=== PATIENT | female | born 1955 | race Caucasian/White ===

== ENCOUNTER → 2017-05-20 | Outpatient (CLI) | payer BC ==
--- NOTE | 2017-05-29 08:44 | MM ---
Reason for exam: screening (asymptomatic). Last mammogram was performed 3 years and 6 months ago. Physical Findings: A clinical breast exam by your physician is recommended on an annual basis and results should be correlated with mammographic findings. MG Screening Mammo w CAD Bilateral CC and MLO view(s) were taken. Prior study comparison: November 11, 2013, mammogram, performed at [facility] December 17, 2011, mammogram, performed at [facility] There are scattered fibroglandular densities. No significant changes when compared with prior studies. ASSESSMENT: Negative, BI-RAD 1 RECOMMENDATION: Routine screening mammogram of both breasts in 1 year.
== END | disposition home or self-care (01) ==
LOC: RADMAMWWP 13:13
PROVIDERS: ATTEND Family Medicine
DX: Z12.31 Encounter for screening mammogram for malignant neoplasm of breast (principal)
CPT/HCPCS: 77067

== ENCOUNTER 2017-06-01 08:51 | Inpatient (IN) | payer BC ==
[2017-06-01] MEDS ORDERED: RX INFO: IV CONTRAST WAS GIVEN 1 EACH MISC MISCELLANE PRN (09:50)
[2017-06-01] MEDS ORDERED: LORazepam 2 MG/ML INJ IV STA (09:51)
[2017-06-01] MEDS ORDERED: METOCLOPRAMIDE 5 MG/ML 2 ML VIAL IVP STA (09:51)
--- NOTE | 2017-06-01 09:57 | ED ---
General Adult HPI - General Chief complaint: Syncope Stated complaint: Shaky, dizzy Time Seen by Provider: 06/01/17 08:58 Source: patient, family, EMS, RN notes reviewed Mode of arrival: EMS Limitations: no limitations - History of Present Illness Initial comments: Patient is a pleasant 61-year-old female presenting to the emergency Department with complaints of dizziness. Patient noticed symptoms when she awoke around 4 AM. Unclear exact onset. Patient denies any confusion or weakness. Patient feels floaty. Patient does admit to having some spinning type sensation with movement and upright position. No vomiting. No history of similar symptoms previously. Patient did have some dizziness with a TIA several years ago however that felt different. - Related Data Home Medications Medication Instructions Recorded Confirmed ALPRAZolam [Xanax] 0.25 mg PO Q8HR PRN 11/22/15 06/01/17 Aspirin 325 mg PO DAILY PRN 11/22/15 06/01/17 Cholecalciferol [Vitamin D3] 2,000 unit PO DAILY 11/22/15 06/01/17 Previous Rx's Medication Instructions Recorded Atenolol [Tenormin] 25 mg PO DAILY #30 tab 11/25/15 Allergies Allergy/AdvReac Type Severity Reaction Status Date / Time Sulfa (Sulfonamide Allergy Swelling Verified 06/01/17 09:23 Antibiotics) codeine AdvReac Unknown Verified 06/01/17 09:23 lisinopril AdvReac Unknown Verified 06/01/17 09:23 ramipril AdvReac Unknown Verified 06/01/17 09:23 steroids AdvReac Unknown Uncoded 06/01/17 09:23 Review of Systems ROS Statement: Those systems with pertinent positive or pertinent negative responses have been documented in the HPI. ROS Other: All systems not noted in ROS Statement are negative. Constitutional: Denies: fever Eyes: Denies: eye pain ENT: Denies: ear pain Respiratory: Denies: cough Cardiovascular: Denies: chest pain Endocrine: Denies: fatigue Gastrointestinal: Denies: abdominal pain Genitourinary: Denies: dysuria Musculoskeletal: Denies: back pain Skin: Denies: rash Neurological: Denies: headache, weakness, confusion, abnormal gait Past Medical History Past Medical History: Hypertension, Mitral Valve Prolapse (MVP) History of Any Multi-Drug Resistant Organisms: None Reported Past Surgical History: Cholecystectomy, Hysterectomy Past Psychological History: Anxiety Smoking Status: Former smoker Past Alcohol Use History: None Reported Past Drug Use History: None Reported General Exam Limitations: no limitations General appearance: alert, in no apparent distress Head exam: Present: atraumatic Eye exam: Present: normal appearance, PERRL, EOMI. Absent: nystagmus ENT exam: Present: normal oropharynx Neck exam: Present: normal inspection Respiratory exam: Present: normal lung sounds bilaterally Cardiovascular Exam: Present: regular rate, normal rhythm GI/Abdominal exam: Present: soft. Absent: tenderness Extremities exam: Present: normal inspection Back exam: Present: normal inspection Neurological exam: Present: alert, oriented X3, CN II-XII intact Expanded Neurological exam: Present: protecting the airway Patient oriented to: Present: person, place, time Speech: Present: fluid speech Cranial nerves: EOM's Intact: Normal, Facial Sensation: Normal Cerebellar function: Finger to Nose: Abnormal Left (Patient has difficulty touching the nose on the left however is able to on 2 attempts.) Sensory exam: Upper Extremity Light Touch: Normal, Lower Extremity Light Touch: Normal Motor strength exam: RUE: 5, LUE: 5, RLE: 5, LLE: 4 Eye Response: (4) open spontaneously Motor Response: (6) obeys commands Verbal Response: (5) oriented Psychiatric exam: Present: normal affect, normal mood Skin exam: Present: normal color Course Vital Signs 06/01/17 06/01/17 06/01/17 09:01 10:39 11:34 Temperature 97.8 F Pulse Rate 81 65 70 Respiratory 16 17 18 Rate Blood Pressure 216/98 168/77 170/81 O2 Sat by Pulse 98 98 Oximetry EKG Findings - EKG Comments: EKG Findings:: Normal sinus rhythm 75. KS 150. QRS 86. QT 39 8. QTC 444. Normal axis. Normal QRS. No acute ST change. Medical Decision Making - Medical Decision Making Patient reevaluated and somewhat improved. Patient and family updated on results and plan. Case was crusted detail with Dr. Rosario, who will admit for Dr. hope. Neurology will be consult. MRA will be ordered. Patient was not considered a candidate for TPA secondary to unknown onset. In addition patient had minimal symptoms and questionable aneurysm on computed tomography scan. - Lab Data Result diagrams: 06/01/17 10:10 06/01/17 10:10 Lab Results 06/01/17 06/01/17 06/01/17 Range/Units 10:10 10:10 10:10 WBC 6.9 (3.8-10.6) k/uL RBC 5.15 (3.80-5.40) m/uL Hgb 13.0 (11.4-16.0) gm/dL Hct 40.4 (34.0-46.0) % MCV 78.4 L (80.0-100.0) fL MCH 25.3 (25.0-35.0) pg MCHC 32.3 (31.0-37.0) g/dL RDW 13.1 (11.5-15.5) % Plt Count 232 (150-450) k/uL Neutrophils % 79 % Lymphocytes % 15 % Monocytes % 3 % Eosinophils % 1 % Basophils % 1 % Neutrophils # 5.5 (1.3-7.7) k/uL Lymphocytes # 1.1 (1.0-4.8) k/uL Monocytes # 0.2 (0-1.0) k/uL Eosinophils # 0.1 (0-0.7) k/uL Basophils # 0.0 (0-0.2) k/uL PT (9.0-12.0) sec INR (<1.2) APTT (22.0-30.0) sec Sodium 140 (137-145) mmol/L Potassium 4.3 (3.5-5.1) mmol/L Chloride 103 (98-107) mmol/L Carbon Dioxide 25 (22-30) mmol/L Anion Gap 12 mmol/L BUN 10 (7-17) mg/dL Creatinine 0.50 L (0.52-1.04) mg/dL Est GFR (MDRD) Af Amer >60 (>60 ml/min/1.73 sqM) Est GFR (MDRD) Non-Af >60 (>60 ml/min/1.73 sqM) Glucose 108 H (74-99) mg/dL Calcium 9.5 (8.4-10.2) mg/dL Total Bilirubin 0.7 (0.2-1.3) mg/dL AST 17 (14-36) U/L ALT 26 (9-52) U/L Alkaline Phosphatase 73 (38-126) U/L Total Creatine Kinase 50 (30-135) U/L CK-MB (CK-2) 1.0 (0.0-2.4) ng/mL CK-MB (CK-2) Rel Index 2.0 Troponin I <0.012 (0.000-0.034) ng/mL Total Protein 7.3 (6.3-8.2) g/dL Albumin 4.4 (3.5-5.0) g/dL 06/01/17 Range/Units 10:10 WBC (3.8-10.6) k/uL RBC (3.80-5.40) m/uL Hgb (11.4-16.0) gm/dL Hct (34.0-46.0) % MCV (80.0-100.0) fL MCH (25.0-35.0) pg MCHC (31.0-37.0) g/dL RDW (11.5-15.5) % Plt Count (150-450) k/uL Neutrophils % % Lymphocytes % % Monocytes % % Eosinophils % % Basophils % % Neutrophils # (1.3-7.7) k/uL Lymphocytes # (1.0-4.8) k/uL Monocytes # (0-1.0) k/uL Eosinophils # (0-0.7) k/uL Basophils # (0-0.2) k/uL PT 10.3 (9.0-12.0) sec INR 1.1 (<1.2) APTT 21.0 L (22.0-30.0) sec Sodium (137-145) mmol/L Potassium (3.5-5.1) mmol/L Chloride (98-107) mmol/L Carbon Dioxide (22-30) mmol/L Anion Gap mmol/L BUN (7-17) mg/dL Creatinine (0.52-1.04) mg/dL Est GFR (MDRD) Af Amer (>60 ml/min/1.73 sqM) Est GFR (MDRD) Non-Af (>60 ml/min/1.73 sqM) Glucose (74-99) mg/dL Calcium (8.4-10.2) mg/dL Total Bilirubin (0.2-1.3) mg/dL AST (14-36) U/L ALT (9-52) U/L Alkaline Phosphatase (38-126) U/L Total Creatine Kinase (30-135) U/L CK-MB (CK-2) (0.0-2.4) ng/mL CK-MB (CK-2) Rel Index Troponin I (0.000-0.034) ng/mL Total Protein (6.3-8.2) g/dL Albumin (3.5-5.0) g/dL - Radiology Data Radiology results: report reviewed (Computed tomography scan of the brain shows no acute process. CT [place] of the head and neck has a questionable 2 mm distal right internal carotid aneurysm recommends MRA. Plaquing carotid bifurcation without significant flow-limiting stenosis.), image reviewed (Two- view chest x-ray shows no acute process.) Disposition Clinical Impression: CVA (cerebral vascular accident) Disposition: ADMITTED IP TO THIS [facility] Referrals: Chastity Cordova MD [Primary Care Provider] - 1-2 days Decision Time: 12:25
[2017-06-01 10:17] LABS: Basophils % (A) 1 %; Eosinophils # (A) 0.1 k/uL (0-0.7); Eosinophils % (A) 1 %; HCT 40.4 % (34.0-46.0); Lymphocytes # (A) 1.1 k/uL (1.0-4.8); Lymphocytes % (A) 15 %; MCH 25.3 pg (25.0-35.0); MCHC 32.3 g/dL (31.0-37.0); MCV 78.4 fL (80.0-100.0); Mean Platelet Volume 7.3; Monocytes # (A) 0.2 k/uL (0-1.0); Monocytes % (A) 3 %; Neutrophils # (A) 5.5 k/uL (1.3-7.7); Neutrophils % (A) 79 %; Platelet Count 232 k/uL (150-450); RBC 5.15 m/uL (3.80-5.40); RDW 13.1 % (11.5-15.5); WBC 6.9 k/uL (3.8-10.6)
[2017-06-01 10:29] LABS: ALT 26 U/L (9-52); AST 17 U/L (14-36); Albumin 4.4 g/dL (3.5-5.0); Alkaline Phosphatase 73 U/L (38-126); Anion Gap 12 mmol/L; Blood Urea Nitrogen 10 mg/dL (7-17); Calcium 9.5 mg/dL (8.4-10.2); Carbon Dioxide 25 mmol/L (22-30); Chloride 103 mmol/L (98-107); Glucose 108 mg/dL (74-99); Potassium 4.3 mmol/L (3.5-5.1); Sodium 140 mmol/L (137-145); Total Bilirubin 0.7 mg/dL (0.2-1.3); Total Protein 7.3 g/dL (6.3-8.2)
--- NOTE | 2017-06-01 10:30 | XR ---
EXAMINATION TYPE: XR chest 2V DATE OF EXAM: 06/01/2017 COMPARISON: 11/23/2015 HISTORY: Dizziness TECHNIQUE: Frontal and lateral views of the chest are obtained. FINDINGS: Lower lung volumes than on the prior exam crowd the pulmonary vasculature. There is no foc al air space opacity, pleural effusion, or pneumothorax seen. The cardiac silhouette size is within normal limits. The osseous structures are intact. Mild multilevel degenerative changes of the thora cic spine are noted. IMPRESSION: No acute cardiopulmonary process.
--- NOTE | 2017-06-01 10:32 | CT ---
EXAMINATION TYPE: CT brain wo con DATE OF EXAM: 06/01/2017 COMPARISON: 11/22/2015 INDICATION: Dizzy, RICH, Lt sided weakness DLP: 1025.5 mGycm, Automated exposure control for dose reduction was used. CONTRAST: None CT of the brain is performed utilizing 3 mm thick sections through the posterior fossa and 3 mm thick sections through the remaining calvarium. Study is performed within 24 hours of arrival to the hosp ital. No abnormal hyperdensity is present to suggest an acute intracranial hemorrhage. No mass lesion is evident. No acute infarcts are evident. Ventricles and sulci are appropriate for the patient age. There is a small retention cyst within the left maxillary sinus. Paranasal sinuses and mastoid air ce lls are otherwise clear. IMPRESSIONS: 1. No acute intracranial process.
[2017-06-01 10:38] LABS: INR 1.1 (<1.2); Prothrombin Time 10.3 sec (9.0-12.0)
[2017-06-01 10:39] LABS: Creatine Kinase 50 U/L (30-135)
[2017-06-01 10:52] LABS: Troponin I <0.012 ng/mL (0.000-0.034)
--- NOTE | 2017-06-01 11:03 | CT ---
EXAMINATION TYPE: CT angio head neck DATE OF EXAM: 06/01/2017 HISTORY: Dizzy, RICH, Lt sided weakness COMPARISON: NONE CT DLP: 320.3 mGycm. Automated Exposure Control for Dose Reduction was Utilized. TECHNIQUE: CTA scan of the neck is performed with IV Contrast, patient injected with 65 mL of Omnipa que 350, axial images are obtained, coronal and sagittal reformatted images are reviewed. Three-D rec onstructed images are created on an independent workstation and reviewed. FINDINGS: Carotid/Vascular Structures: Common carotid arteries bifurcate into internal and external carotid art eries.. Vascular calcification is present at the bifurcations. Significant flow-limiting stenosis is not identified. Vertebral arteries are codominant. [place]: Internal carotid arteries bifurcate into A1 and M1 segments. The A2 segments appear normal. Middle cerebral artery branches are unremarkable. Posterior cerebral vasculature is normal. Posterior communicating arteries are patent. At the lateral distal right carotid siphon there is a tiny 2 mm density which may be a very small ane urysm. Consider follow-up MRA COW for confirmation. Other: There is a common origin of the left and right common carotid arteries from the innominate. IMPRESSION: 1. A 2 mm lateral distal right internal carotid siphon aneurysm is not excluded. MRA [place] is recommended for confirmation. 2. Atheromatous plaquing carotid bifurcations without significant flow-limiting stenosis. 3. Common origin of the left and right common carotid arteries from the innominate artery.
[2017-06-01] MEDS ORDERED: LORazepam 2 MG/ML INJ IV PRN (12:28)
[2017-06-01] MEDS: SODIUM CHLORIDE 0.9% 1,000 ML IV SCH (14:32)
--- NOTE | 2017-06-01 14:33 | P.HPIM ---
History of Present Illness H&P Date: 06/01/17 Chief Complaint: Dizziness This is a 61-year-old female, patient of Dr. Cordova. She has a known past medical history of generalized anxiety disorder, TIA and hypertension. Patient reports that she woke up around 4:00 this morning to go use the restroom when she sat up she had severe dizziness. She had difficulty walking to the bathroom she had to hold onto different pieces of furniture. She reports that she has been, leaning more towards the left side. She reports that this does feel similar to a couple years ago when she did have a TIA. She also reports feeling that there is pressure on the top of her head. She was recently treated for an ear infection. She took 5 days of Augmentin for a left ear infection. Patient denies any pain or ear she denies any fevers or chills or sweats. Denies any vomiting. She does experience occasional nausea with the dizziness. Denies any bowel movement changes or urinary symptoms. She denies any cough or cold-like symptoms her sinus infection symptoms. Denies any ear pain. She did have one episode of ringing in the left ear during the ambulance ride. Patient reports yesterday she had been doing well with no problems. She presented with elevated blood pressure of 216/98 she does report taking her atenolol earlier this morning. She denies any chest pain. But does report feeling like something was stuck in her throat. Troponin was negative. EKG showing normal sinus rhythm. Chest x-rays negative. Computed tomography scan of the brain showed no acute changes CTA of the head and neck showed a 2 mm lateral distal right internal carotid siphon aneurysm is not excluded. MRA [place] is recommended. Arthritis plaquing carotid bifurcations without significant flow limiting stenosis. Neurology has been consulted. Patient is also noted some left leg weakness. During her hospitalization in November 2015 she was diagnosed with TIA there were also concerns about possible vestibular neuronitis. Patient reports laying flat on her back makes symptoms worse. Patient did take an aspirin and Xanax with no improvement in symptoms. Review of Systems Please refer to HPI otherwise unremarkable Past Medical History Past Medical History: Hypertension, Mitral Valve Prolapse (MVP) History of Any Multi-Drug Resistant Organisms: None Reported Past Surgical History: Cholecystectomy, Hysterectomy Past Psychological History: Anxiety Smoking Status: Former smoker Past Alcohol Use History: None Reported Past Drug Use History: None Reported Medications and Allergies Home Medications Medication Instructions Recorded Confirmed Type ALPRAZolam [Xanax] 0.25 mg PO Q8HR PRN 11/22/15 06/01/17 History Aspirin 325 mg PO DAILY PRN 11/22/15 06/01/17 History Cholecalciferol [Vitamin D3] 2,000 unit PO DAILY 11/22/15 06/01/17 History Atenolol [Tenormin] 25 mg PO DAILY #30 tab 11/25/15 06/01/17 Rx Allergies Allergy/AdvReac Type Severity Reaction Status Date / Time Sulfa (Sulfonamide Allergy Swelling Verified 06/01/17 09:23 Antibiotics) codeine AdvReac Unknown Verified 06/01/17 09:23 lisinopril AdvReac Unknown Verified 06/01/17 09:23 omeprazole [From Prilosec] AdvReac Rash/Hives Verified 06/01/17 14:15 ramipril AdvReac Unknown Verified 06/01/17 09:23 steroids AdvReac Unknown Uncoded 06/01/17 09:23 Physical Exam Vitals: Vital Signs Temp Pulse Resp BP Pulse Ox 06/01/17 11:34 70 18 170/81 06/01/17 10:39 65 17 168/77 98 06/01/17 09:01 97.8 F 81 16 216/98 98 Intake and Output 05/31/17 06/01/17 06/01/17 22:59 06:59 14:59 Other: Weight 90.718 kg Patient Weight 06/02/17 06:59 Weight 90.718 kg Head normocephalic Neck supple Lungs clear to auscultation bilaterally no wheezing or crackles Heart regular rate and rhythm S1-S2, no rub or gallop Abdomen is soft nontender nondistended positive bowel sounds no hepatosplenomegaly Extremities no edema Neuro alert and orientated to 3. No facial droop or slurred speech. Hand accordion repairer equal bilaterally. Lower extremity strength diminished on the left lateral 3 out of 5. No evidence of any sensation loss. Results CBC & Chem 7: 06/01/17 10:10 06/01/17 10:10 Labs: Abnormal Lab Results - Last 24 Hours (Table) 06/01/17 06/01/17 06/01/17 Range/Units 10:10 10:10 10:10 MCV 78.4 L (80.0-100.0) fL APTT 21.0 L (22.0-30.0) sec Creatinine 0.50 L (0.52-1.04) mg/dL Glucose 108 H (74-99) mg/dL Assessment and Plan Assessment: 1. Severe dizziness with left leg weakness: Concern about possible CVA. Initial computed tomography scan of the brain shows no acute changes. CT of the head and neck did reveal a 2 mm lateral distal right carotid siphon aneurysm not to be excluded. MRA and MRI of the brain have been ordered. Neurology has been consulted. Continue telemetry monitoring. EKG had shown normal sinus rhythm. Echo pending . lipid panel checked. Aspirin currently on hold until MRA done or evaluated by neurology 2. Accelerated hypertension: Continue to monitor blood pressures. 3. Generalized anxiety disorder: We'll resume patient's xanax. She can continue with the Ativan as needed for her claustrophobia 4. Previous history of TIA that had affected the left side 5. Recent left ear infection. Completed treatment with Augmentin about 1 week ago Time with Patient: Greater than 30 (Greater than 50% of the total time spent in counseling and coordination of care.I performed an examination of the patient and discussed their management with the physician Con[facility] Former. I have reviewed the Physician Conformal Pad Former's notes and agree with the documented findings and plan of care)
[2017-06-01] MEDS: ALPRAZolam 0.25 MG TAB PO PRN (16:26)
--- NOTE | 2017-06-01 16:34 | P.CNNES ---
History of Present Illness Consult date: 06/01/17 Reason for Consult: Patient with dizziness and left sided weakness. History of Present Illness: This patient is a 61-year-old right-handed white female who apparently early this morning was awakened at about 4 AM with symptoms of dizziness. Patient states she did not have true vertigo but did feel very much as if she was off balance. She felt she could not stand straight up. She apparently did try to get up out of bed and felt very unsteady. She was leaning to her left side. She decided to lay back down in bed and waited for another hour to to see if her symptoms would improve. Patient has a history of having an episode of TIA and dizziness about 2 years ago but this feeling today was quite different. The patient also mentions that she was treated for recent ear infection. She was taking Augmentin for left ear infection for about 5 days. Once again when questioned if she had true vertigo and spinning sensation she states it was more of a disequilibrium feeling this morning. Apparently yesterday she was feeling fine. She decided to awaken her who noticed that she was having some difficulty walking and leaning to her left side. She was able to make it to her primary care physician's office Dr. Cordova who advised her to go to the emergency room. Patient was brought into the ER where she was evaluated by Dr. Yoo. Apparently when she was initially seen in the emergency room her blood pressure was elevated at 216/98. She was given some antihypertensive medications and her blood pressure did seem to respond somewhat in the ER. She was evaluated and was not considered a candidate for TPA secondary to unknown onset of her symptoms. In addition she had minimal symptoms and her CTA angiogram revealed questionable aneurysm. Patient was sent for a computed tomography scan of the brain. A CAT scan of the brain revealed no acute intracranial process. She underwent CTA angiogram of the head and neck which revealed a 2 mm lateral distal right internal carotid artery siphon aneurysm was not excluded. MRA ambler of [place] was recommended. There was bathroom at this plaquing of the carotid bifurcations without significant flow limiting stenosis. A MRI/MRA of the brain has been ordered. Patient states she is no previous history of severe headaches. There is no strong family history of cerebral aneurysms. She is being evaluated by cardiology for hypertensive urgency. As noted her blood pressure still remains elevated. The patient did notice at home early this morning some degree of left-sided weakness. She states when she stood up and walked this morning at about 4 AM she felt she was leaning to her left side. She did not experience any speech or language impairment. Visual changes. The patient's symptoms in the ER did seem to improve. She is now being admitted to hospital for a complete stroke evaluation. As mentioned she is to undergo MRI/MRA of the brain for further evaluation. We're waiting further recommendations from cardiology regarding uncontrolled hypertension. The patient states she still feels some left-sided symptoms of weakness. Her neurological examination in the ER this afternoon does reveal slight left hemiparesis. We have suggested the patient to be completely evaluated for possibility of brainstem ischemia versus stroke. We will need to await the MRI of the brain to be completed for further assessment. As noted the possibility of a aneurysm will be further evaluated with MRA ambler of [place]. The patient is now admitted and neurology has been consulted for further evaluation and recommendations. Review of Systems Constitutional: Denies chills, Denies fever Eyes: denies blurred vision, denies pain Ears, nose, mouth and throat: Denies headache, Denies sore throat Cardiovascular: Reports high blood pressure, Reports lightheadedness, Denies chest pain, Denies shortness of breath Respiratory: Denies cough Gastrointestinal: Denies abdominal pain, Denies diarrhea, Denies nausea, Denies vomiting Genitourinary: Denies dysuria, Denies hematuria Musculoskeletal: Denies myalgias Integumentary: Denies pruritus, Denies rash Neurological: Reports gait dysfunction, Reports headaches, Reports motor disturbance, Denies numbness, Denies weakness Psychiatric: Denies anxiety, Denies depression Endocrine: Denies fatigue, Denies weight change Past Medical History Past Medical History: Hypertension, Mitral Valve Prolapse (MVP) Additional Past Medical History / Comment(s): TIA possible middle ear issue 2015-vertigo, pt states recently tx for ear infection. History of Any Multi-Drug Resistant Organisms: None Reported Past Surgical History: Cholecystectomy, Hysterectomy Additional Past Surgical History / Comment(s): colonoscopy Past Anesthesia/Blood Transfusion Reactions: No Reported Reaction Smoking Status: Former smoker - Past Family History Father Family Medical History: Coronary Artery Disease (CAD), Diabetes Mellitus, Myocardial Infarction ([place]) Additional Family Medical History / Comment(s): Father had a pacemaker. He at the age of 76yrs from a [place]. Mother Family Medical History: GERD/Reflux, Hypertension Medications and Allergies Home Medications Medication Instructions Recorded Confirmed Type ALPRAZolam [Xanax] 0.25 mg PO Q8HR PRN 11/22/15 06/01/17 History Aspirin 325 mg PO DAILY PRN 11/22/15 06/01/17 History Cholecalciferol [Vitamin D3] 2,000 unit PO DAILY 11/22/15 06/01/17 History Atenolol [Tenormin] 25 mg PO DAILY #30 tab 11/25/15 06/01/17 Rx Allergies Allergy/AdvReac Type Severity Reaction Status Date / Time Sulfa (Sulfonamide Allergy Swelling Verified 06/01/17 09:23 Antibiotics) codeine AdvReac Unknown Verified 06/01/17 09:23 lisinopril AdvReac Unknown Verified 06/01/17 09:23 omeprazole [From Prilosec] AdvReac Rash/Hives Verified 06/01/17 14:15 ramipril AdvReac Unknown Verified 06/01/17 09:23 steroids AdvReac Unknown Uncoded 06/01/17 09:23 Physical Examination - Vital Signs Vital Signs: Vital Signs Temp Pulse Resp BP Pulse Ox 06/01/17 16:13 72 18 196/89 97 06/01/17 14:30 98.2 F 70 18 188/90 95 06/01/17 11:34 70 18 170/81 06/01/17 10:39 65 17 168/77 98 06/01/17 09:01 97.8 F 81 16 216/98 98 Intake and Output 06/01/17 06/01/17 06/01/17 06:59 14:59 22:59 Other: Weight 90.718 kg Patient Weight 06/02/17 06:59 Weight 90.718 kg - Constitutional General appearance: average body habitus, cooperative - EENT EENT: PERRL, mucous membranes moist - Respiratory Respiratory: lungs clear, normal breath sounds - Cardiovascular Cardiovascular: regular rate, normal S1, normal S2 Extremities: no peripheral edema bilaterally - Gastrointestinal Gastrointestinal: normoactive bowel sounds - Integumentary Integumentary: normal - Neurologic Cranial nerve examination: PERRL, EOMI, V1/V2/V3 grossly intact, face symmetric , tongue midline, intact gag reflex, intact corneal reflex, normal palatal elevation Speech examination: intact Sensorimotor examination: intact Motor examination - right side: 5/5: biceps, triceps, wrist flexion, wrist extension, defense attorney, hip flexors, knee extensors, dorsiflexion, toe extension (EHL) , plantarflexion Motor examination - left side: 4/5: biceps, triceps, wrist flexion, wrist extension, defense attorney, hip flexors, knee extensors, dorsiflexion, toe extension (EHL) , plantarflexion Detailed sensory examination: intact Reflex and gait examination: intact Reflexes: 1+: ankle, bicep, knee, tricep - Musculoskeletal Musculoskeletal: no pain - Psychiatric Psychiatric: mood/affect appropriate, cooperative Results - Laboratory Findings CBC and BMP: 06/01/17 10:10 06/01/17 10:10 Abnormal Lab Findings: Abnormal Labs 06/01/17 06/01/17 06/01/17 10:10 10:10 10:10 MCV 78.4 L APTT 21.0 L Creatinine 0.50 L Glucose 108 H Assessment and Plan (1) Transient brainstem ischemia Current Visit: Yes Status: Acute Code(s): G45.9 - TRANSIENT CEREBRAL ISCHEMIC ATTACK, UNSPECIFIED SNOMED Code(s): 311063613 (2) Acute right MCA stroke Current Visit: Yes Status: Acute Code(s): I63.511 - CEREB INFRC D/T UNSP OCCLS OR STENOS OF RIGHT MID CEREB ART SNOMED Code(s): 568024733 (3) Hypertensive urgency Current Visit: Yes Status: Acute Code(s): I16.0 - HYPERTENSIVE URGENCY SNOMED Code(s): 880894140 (4) Vestibular neuronitis Current Visit: No Status: Acute Code(s): H81.20 - VESTIBULAR NEURONITIS, UNSPECIFIED EAR SNOMED Code(s): 587851246 Plan: This patient is a 61-year-old right-handed white female who is being evaluated for episode of acute disequilibrium and left-sided weakness that began at 4 AM this morning. She awoke with symptoms at home and had difficulty ambulating. She was seen by her primary care physician and was advised to go to the emergency room. She was seen in the ER at [facility] by Dr. Yoo. She underwent a computed tomography scan of the brain today which revealed no acute intracranial process. CTA angiogram of the head and neck revealed a 2 mm lateral distal right internal carotid siphon aneurysm was not excluded. Patient on neurological examination continues to demonstrate left- sided hemiparesis. There is mild degree of dysmetria on left finger-nose testing as well. These findings suggest possibility of brainstem ischemia. We are recommending that she undergo a MRI of the brain and MRA ambler of [place] for further evaluation for acute stroke. We're waiting cardiology consultation for evaluation of hypertensive urgency. We will await their conditions in terms of blood pressure management. The patient will be admitted for a complete stroke evaluation. Her overall prognosis at this time remains guarded. Time with Patient: Greater than 30
[2017-06-02] MEDS: ALPRAZolam 0.25 MG TAB PO PRN ×3 (00:18→22:15)
[2017-06-02] MEDS: SODIUM CHLORIDE 0.9% 1,000 ML IV SCH ×2 (00:43→08:36)
[2017-06-02 06:27] LABS: Basophils % (A) 1 %; Eosinophils # (A) 0.2 k/uL (0-0.7); Eosinophils % (A) 3 %; HCT 37.6 % (34.0-46.0); HGB 11.9 gm/dL (11.4-16.0); Lymphocytes # (A) 1.5 k/uL (1.0-4.8); Lymphocytes % (A) 27 %; MCH 25.5 pg (25.0-35.0); MCHC 31.7 g/dL (31.0-37.0); MCV 80.4 fL (80.0-100.0); Mean Platelet Volume 7.2; Monocytes # (A) 0.3 k/uL (0-1.0); Monocytes % (A) 5 %; Neutrophils # (A) 3.4 k/uL (1.3-7.7); Neutrophils % (A) 62 %; Platelet Count 207 k/uL (150-450); RBC 4.68 m/uL (3.80-5.40); RDW 13.6 % (11.5-15.5); WBC 5.5 k/uL (3.8-10.6)
[2017-06-02 06:43] LABS: ALT 24 U/L (9-52); AST 12 U/L (14-36); Albumin 3.8 g/dL (3.5-5.0); Alkaline Phosphatase 62 U/L (38-126); Anion Gap 11 mmol/L; Blood Urea Nitrogen 9 mg/dL (7-17); Carbon Dioxide 26 mmol/L (22-30); Chloride 106 mmol/L (98-107); Cholesterol 187 mg/dL (<200); Glucose 102 mg/dL (74-99); HDL Cholesterol 38 mg/dL (40-60); LDL Cholesterol,Calculated 126 mg/dL (0-99); Sodium 143 mmol/L (137-145); Total Bilirubin 0.7 mg/dL (0.2-1.3); Total Protein 6.3 g/dL (6.3-8.2); Triglycerides 113 mg/dL (<150)
[2017-06-02] MEDS: CHOLECALCIFEROL 1,000 UNIT TAB PO SCH (08:37)
[2017-06-02] MEDS: ATENOLOL 25 MG TAB PO SCH (08:38)
--- NOTE | 2017-06-02 10:12 | P.CRDCN ---
History of Present Illness Consult date: 06/02/17 Requesting physician: Rylee Rosario Consult reason: hypertension Chief complaint: Lightheadedness, headache History of present illness: This is a pleasant 61-year-old female with history of hypertension, prior TIA in November 2015, strong family history of premature coronary artery disease, generalized anxiety disorder. Patient presents to the hospital with symptoms of feeling woozy and unsteady. She states she did not have symptoms of dizziness like vertigo, she states it was more that she felt she was walking in a cloud, she felt foggy, she states she also had a headache on the top of her head. Patient felt unsteady in walking and felt as though she was mildly leaning to the left side. She took her blood pressure medications in the morning along with a Xanax, then went to her primary doctor's office explaining the symptoms, she was recommended to come to the emergency room for further evaluation. Patient has been recently treated with Augmentin as an outpatient for an ear infection. According to the patient, she had been diagnosed with a TIA in November 2015, at that time she states that she had significant dizziness and vertigo. Her blood pressure back then was in the 200 systolic range. Blood pressure on arrival here to 16/98, heart rate in the 80s, 98% on room air. She is afebrile. EKG on arrival here shows a normal sinus rhythm with no acute changes. CT angiogram was performed which revealed a 2 mm lateral distal right internal carotid aneurysm. Atheromatous plaque carotid bifurcations without significant flow limiting stenosis. CAT scan of the brain did not reveal any acute intracranial process. Chest x-ray did not reveal any acute cardiopulmonary process. CBC was normal. Sodium 143, potassium 4.0, BUN 9, creatinine 0.5. Troponin 0.012. Cholesterol 187, LDL 126, HDL 38, triglycerides 113. At the time of my examination this morning, patient states she does feel better, she was ambulated this morning with physical therapy who noted that she still has mild leaning to the left-side. The patient was seen in consultation by neurology who are recommending she undergo an MRI of the brain and MRA of the pauma of [place]ong for further evaluation of acute stroke. Blood pressure this morning 182/88, heart rate in the 80s. 98% on room air. The patient is currently on Tenormin 25 mg daily at home for blood pressure. This has been resumed here, and patient was also initiated on Norvasc 2.5 mg daily. Past Medical History Past Medical History: Hypertension, Mitral Valve Prolapse (MVP) Additional Past Medical History / Comment(s): TIA possible middle ear issue 2015-vertigo, pt states recently tx for ear infection. History of Any Multi-Drug Resistant Organisms: None Reported Past Surgical History: Cholecystectomy, Hysterectomy Additional Past Surgical History / Comment(s): colonoscopy Past Anesthesia/Blood Transfusion Reactions: No Reported Reaction Smoking Status: Former smoker - Past Family History Father Family Medical History: Coronary Artery Disease (CAD), Diabetes Mellitus, Myocardial Infarction ([place]) Additional Family Medical History / Comment(s): Father had a pacemaker. He at the age of 76yrs from a [place]. Mother Family Medical History: GERD/Reflux, Hypertension Medications and Allergies Home Medications Medication Instructions Recorded Confirmed Type ALPRAZolam [Xanax] 0.25 mg PO Q8HR PRN 11/22/15 06/01/17 History Aspirin 325 mg PO DAILY PRN 11/22/15 06/01/17 History Cholecalciferol [Vitamin D3] 2,000 unit PO DAILY 11/22/15 06/01/17 History Atenolol [Tenormin] 25 mg PO DAILY #30 tab 11/25/15 06/01/17 Rx Allergies Allergy/AdvReac Type Severity Reaction Status Date / Time Sulfa (Sulfonamide Allergy Swelling Verified 06/01/17 09:23 Antibiotics) codeine AdvReac Unknown Verified 06/01/17 09:23 lisinopril AdvReac Unknown Verified 06/01/17 09:23 omeprazole [From Prilosec] AdvReac Rash/Hives Verified 06/01/17 14:15 ramipril AdvReac Unknown Verified 06/01/17 09:23 steroids AdvReac Unknown Uncoded 06/01/17 09:23 Physical Exam Vitals: Vital Signs Temp Pulse Pulse Resp BP BP Pulse Ox 06/02/17 08:00 96.9 F L 83 18 183/89 98 06/02/17 03:59 64 18 06/02/17 03:58 97.3 F L 64 18 151/94 99 06/02/17 00:00 96.8 F L 68 18 134/72 98 06/01/17 20:00 96.9 F L 68 18 151/82 94 L 06/01/17 17:25 96.9 F L 75 18 164/101 98 06/01/17 16:13 97.0 F L 72 18 196/89 97 06/01/17 14:30 98.2 F 70 18 188/90 95 06/01/17 11:34 70 18 170/81 06/01/17 10:39 65 17 168/77 98 Intake and Output 06/01/17 06/02/17 06/02/17 22:59 06:59 14:59 Intake Total 240 800 240 Balance 240 800 240 Intake: IV 800 Sodium Chloride 0.9% 1, 800 000 ml @ 100 mls/hr IV . Q10H [facility] Rx#:[id number] Oral 240 240 Other: Voiding Method Toilet Toilet Toilet # Voids 1 1 Weight 93.4 kg PHYSICAL EXAMINATION: HEENT: Head is atraumatic, normocephalic. Pupils equal, round. Neck is supple. There is no elevated jugular venous pressure. HEART EXAMINATION: Heart S1, S2 normal. No murmur or gallop heard. CHEST EXAMINATION: Lungs are clear to auscultation and precussion. No chest wall tenderness is noted on palpation or with deep breathing. ABDOMEN: Soft, nontender. Bowel sounds are heard. No organomegaly noted. EXTREMITIES: 2+ peripheral pulses with no evidence of peripheral edema and no calf tenderness noted. NEUROLOGIC patient is awake, alert and oriented -3. . Results 06/02/17 05:36 06/02/17 05:36 Cardiac Enzymes 06/01/17 06/01/17 06/02/17 Range/Units 10:10 10:10 05:36 AST 17 12 L (14-36) U/L CK-MB (CK-2) 1.0 (0.0-2.4) ng/mL Troponin I <0.012 (0.000-0.034) ng/mL Coagulation 06/01/17 Range/Units 10:10 PT 10.3 (9.0-12.0) sec APTT 21.0 L (22.0-30.0) sec Lipids 06/02/17 Range/Units 05:36 Triglycerides 113 (<150) mg/dL Cholesterol 187 (<200) mg/dL HDL Cholesterol 38 L (40-60) mg/dL CBC 06/01/17 06/02/17 Range/Units 10:10 05:36 WBC 6.9 5.5 (3.8-10.6) k/uL RBC 5.15 4.68 (3.80-5.40) m/uL Hgb 13.0 11.9 (11.4-16.0) gm/dL Hct 40.4 37.6 (34.0-46.0) % Plt Count 232 207 (150-450) k/uL Comprehensive Metabolic Panel 06/01/17 06/02/17 Range/Units 10:10 05:36 Sodium 140 143 (137-145) mmol/L Potassium 4.3 4.0 (3.5-5.1) mmol/L Chloride 103 106 (98-107) mmol/L Carbon Dioxide 25 26 (22-30) mmol/L BUN 10 9 (7-17) mg/dL Creatinine 0.50 L 0.50 L (0.52-1.04) mg/dL Glucose 108 H 102 H (74-99) mg/dL Calcium 9.5 9.0 (8.4-10.2) mg/dL AST 17 12 L (14-36) U/L ALT 26 24 (9-52) U/L Alkaline Phosphatase 73 62 (38-126) U/L Total Protein 7.3 6.3 (6.3-8.2) g/dL Albumin 4.4 3.8 (3.5-5.0) g/dL Current Medications Generic Name Dose Route Start Last Admin Trade Name Freq PRN Reason Stop Dose Admin Alprazolam 0.25 mg 06/01/17 14:15 06/02/17 04:08 Xanax PO 0.25 mg Q8HR PRN Administration Anxiety Amlodipine Besylate 2.5 mg 06/01/17 17:00 Norvasc PO DAILY CARRIE Atenolol 25 mg 06/02/17 09:00 06/02/17 08:38 Tenormin PO 25 mg DAILY CARRIE Administration Cholecalciferol 2,000 unit 06/02/17 12:00 06/02/17 08:37 Vitamin D3 PO 2,000 unit 1200 CARRIE Administration Sodium Chloride 1,000 mls @ 100 mls/hr 06/01/17 12:30 06/02/17 08:36 Saline 0.9% IV 100 mls/hr .Q10H CARRIE Administration Lorazepam 1 mg 06/01/17 12:28 Ativan IV Q6HR PRN Anxiety Miscellaneous Information 1 each 06/01/17 09:50 06/01/17 14:55 Rx Info: Iv Contrast Was Given MISCELLANE 06/03/17 09:51 1 each DAILY PRN Administration Per Protocol Intake and Output 06/01/17 06/02/17 06/02/17 22:59 06:59 14:59 Intake Total 240 800 240 Balance 240 800 240 Intake: IV 800 Sodium Chloride 0.9% 1, 800 000 ml @ 100 mls/hr IV . Q10H [facility] Rx#:[id number] Oral 240 240 Other: Voiding Method Toilet Toilet Toilet # Voids 1 1 Weight 93.4 kg 06/02/17 05:36 06/02/17 05:36 EKG Interpretations (text) EKG shows a normal sinus rhythm with no acute changes. Assessment and Plan Plan: Assessment and plan #1 symptoms of unsteadiness and left-sided weakness rule out CVA #2 accelerated hypertension #3 history of a TIA #4 recent left ear infection, treated with Augmentin #5 generalized anxiety disorder Plan We will obtain an echocardiogram with Doppler study. Patient did have an echocardiogram with Doppler study performed in November 2015 which revealed an ejection fraction of 55-60%. Adjust antihypertensives to attain adequate blood pressure control. Further recommendations to follow. DNP note has been reviewed, I agree with a documented findings and plan of care. Patient was seen and examined.
--- NOTE | 2017-06-02 10:31 | P.PN ---
Subjective Progress Note Date: 06/02/17 This is a 61-year-old female, patient of Dr. Cordova. She has a known past medical history of generalized anxiety disorder, TIA and hypertension. Patient reports that she woke up around 4:00 this morning to go use the restroom when she sat up she had severe dizziness. She had difficulty walking to the bathroom she had to hold onto different pieces of furniture. She reports that she has been, leaning more towards the left side. She reports that this does feel similar to a couple years ago when she did have a TIA. She also reports feeling that there is pressure on the top of her head. She was recently treated for an ear infection. She took 5 days of Augmentin for a left ear infection. Patient denies any pain or ear she denies any fevers or chills or sweats. Denies any vomiting. She does experience occasional nausea with the dizziness. Denies any bowel movement changes or urinary symptoms. She denies any cough or cold-like symptoms her sinus infection symptoms. Denies any ear pain. She did have one episode of ringing in the left ear during the ambulance ride. Patient reports yesterday she had been doing well with no problems. She presented with elevated blood pressure of 216/98 she does report taking her atenolol earlier this morning. She denies any chest pain. But does report feeling like something was stuck in her throat. Troponin was negative. EKG showing normal sinus rhythm. Chest x-rays negative. Computed tomography scan of the brain showed no acute changes CTA of the head and neck showed a 2 mm lateral distal right internal carotid siphon aneurysm is not excluded. MRA inupiat of [place] is recommended. Arthritis plaquing carotid bifurcations without significant flow limiting stenosis. Neurology has been consulted. Patient is also noted some left leg weakness. During her hospitalization in November 2015 she was diagnosed with TIA there were also concerns about possible vestibular neuronitis. Patient reports laying flat on her back makes symptoms worse. Patient did take an aspirin and Xanax with no improvement in symptoms. 06/02/2017 patient's head pressure has resolved. Dizziness is improving. Still has some left leg weakness. She is scheduled for an MRI MRA and MRV of the brain today as well as echocardiogram. Concerns of possible brainstem ischemia. Also further evaluation in regards to the 2 mm aneurysm in the right internal carotid artery. Patient denies any chest pain or shortness of breath. Denies any nausea or vomiting. Denies any bowel movement changes or urinary symptoms. She is eating and drinking appropriately. Patient is having fluctuating blood pressures. Cardiology following. Norvasc added yesterday. But was not given. Blood pressure had come down to 160 systolic. Fluids will be hep-locked. Objective - Vital Signs Vital signs: Vital Signs Temp 96.9 F L 06/02/17 08:00 Pulse 83 06/02/17 08:00 Resp 18 06/02/17 08:00 BP 183/89 06/02/17 08:00 Pulse Ox 98 06/02/17 08:00 Intake & Output 06/01/17 06/02/17 06/02/17 18:59 06:59 18:59 Intake Total 240 800 240 Balance 240 800 240 Weight 90.718 kg 93.4 kg Intake: IV 800 Sodium Chloride 0.9% 1, 800 000 ml @ 100 mls/hr IV . Q10H [facility] Rx#:[id number] Oral 240 240 Other: Voiding Method Toilet Toilet # Voids 1 1 - Exam Head normocephalic Neck supple Lungs clear to auscultation bilaterally no wheezing or crackles Heart regular rate and rhythm S1-S2, no rub or gallop Abdomen is soft nontender nondistended positive bowel sounds no hepatosplenomegaly Extremities no edema Neuro alert and orientated to 3. Left lower extremity weakness 3 out of 5 muscle strength - Labs CBC & Chem 7: 06/02/17 05:36 06/02/17 05:36 Labs: Abnormal Lab Results - Last 24 Hours (Table) 06/01/17 06/01/17 06/02/17 Range/Units 10:10 10:10 05:36 APTT 21.0 L (22.0-30.0) sec Creatinine 0.50 L 0.50 L (0.52-1.04) mg/dL Glucose 108 H 102 H (74-99) mg/dL AST 12 L (14-36) U/L LDL Cholesterol, Calc 126 H (0-99) mg/dL HDL Cholesterol 38 L (40-60) mg/dL Assessment and Plan Assessment: 1. Severe dizziness with left leg weakness: Concern about possible brainstem ischemia. Initial computed tomography scan of the brain shows no acute changes. CT of the head and neck did reveal a 2 mm lateral distal right carotid siphon aneurysm not to be excluded. MRA , MRV and MRI of the brain have been ordered. Neurology has been consulted. Continue telemetry monitoring. EKG had shown normal sinus rhythm. Echo pending . lipid panel checked. Aspirin currently on hold until MRA done due to aneurysm or evaluated by neurology 2. Accelerated hypertension: Continue to monitor blood pressures. Patient given her atenolol this morning. Norvasc 2.5 mg daily added. Hep-Lock IV fluids. Patient evaluated by cardiology 3. Generalized anxiety disorder: We'll resume patient's xanax. She can continue with the Ativan as needed for her claustrophobia 4. Previous history of TIA that had affected the left side 5. Recent left ear infection. Completed treatment with Augmentin about 1 week ago I performed an examination of the patient and discussed their management with the physician Clicking Machine Operator. I have reviewed the Physician Clicking Machine Operator's notes and agree with the documented findings and plan of care
--- NOTE | 2017-06-02 12:33 | MR ---
EXAMINATION TYPE: MR MRA/MRV head wo con DATE OF EXAM: 06/02/2017 COMPARISON: CT brain 01/29/2018 HISTORY: CVA, possible aneurysm-eval [place] TECHNIQUE: Time of flight images focusing on the [place] were performed without contrast.. 2-D and 3-D postprocessing imaging is performed. Study is performed within 24 hours post admission. FINDINGS: MRA [place]: Internal carotid arteries bifurcate into A1 and M1 segments. The anterior comm unicating artery is patent. Posterior communicating arteries are patent. Posterior cerebral arteries are patent. Vertebrobasilar arteries are normal. Distal middle cerebral arteries and A2 segments appe ar normal. Attention is paid to the right distal internal carotid artery siphon. No aneurysm is identified image s. MRV brain: MR knee performed following appropriate time. The left sigmoid sinus appears diminutive. R ight sigmoid sinus is normal. Proximal jugular veins appear normal. Straight sinus dural sinus appear normal. Venous structures appear unremarkable. IMPRESSION: 1. Normal MRA [place]. 2. Abnormality identified on the CTA brain is not evident on the current MRA. 3. Normal MRV brain
--- NOTE | 2017-06-02 12:43 | MR ---
EXAMINATION TYPE: MR brain wo con DATE OF EXAM: 06/02/2017 COMPARISON: 11/23/2015 MRI, CT brain 06/01/2017 HISTORY: CVA CONTRAST: Performed utilizing 0 mL intravenous Gadavist gadolinium contrast. TECHNIQUE: Multiplanar, multiecho imaging on a 3.0 [place] magnet is performed through the brain. Stud y is performed within 24 hours of arrival to the hospital. The craniovertebral junction is normal. The pituitary is normal. Diffusion-weighted imaging is performed. No abnormal hyperintensity is present to suggest an acute i ntracranial infarct or acute ischemic change. There are couple of nonspecific white matter changes present. This includes subcortical white matter within the centrum semiovale and periventricular white matter changes in the trilobar regions. Findi ngs are likely related to chronic white matter ischemic changes. These appear present in 2016 MRI. Ventricles and sulci are appropriate for the patient age. Portion of the optic chiasm and distal inte rnal carotid arteries visualized appear normal on these images. There is some minimal mucosal thickening within maxillary sinuses bilaterally. IMPRESSIONS: 1. No acute ischemic area. 2. Some mild punctate chronic ischemic changes may be present, similar to 2016 MRI. 3. No obvious aneurysm on the current exam.
--- NOTE | 2017-06-02 16:02 | P.PN ---
Subjective Progress Note Date: 06/02/17 This patient is a pleasant 7oyear-old right-handed white female who was admitted yesterday to Hospital with symptoms of left-sided weakness and dizziness. Patient presented with episode of acute onset of symptoms at 4 AM yesterday morning. She was subtly brought into the emergency room where she was evaluated in the ER by Dr. Yoo. She was sent for CT scan of the brain as well as a CTA angiogram of the head and neck. CT of the brain revealed no acute changes. CTA of the head and neck revealed a 2 mm lateral distal right internal carotid artery siphon aneurysm was not excluded. The patient's neurological examination did reveal some left-sided weakness yesterday on examination. This seems to have improved today. She was sent for further imaging study today including MRI of the brain which was completed today and reveals no acute areas of ischemia. There was mild punctate chronic white matter ischemic changes noted which is unchanged from previous study from 2016. She also had MRA [place] which revealed no obvious abnormality and no evidence of aneurysm. MRV was normal. We have reviewed the results of all of the neuroimaging studies today with the patient. She is doing better overall and apparently headache pressure has resolved. Dizziness also seems to be improving. Her neurological examination however still reveals some left- sided weakness. Hand lock and dam repairer strength on the left seems to be effort related. We would recommend to continue with physical therapy assessment. She may benefit from outpatient PT/ OT evaluation. She may also be a good candidate for inpatient rehab. Would recommend consultation with Dr. Scales for further evaluation. At this time there is no evidence of acute stroke on her MRI of the brain. Would recommend to start her on low-dose aspirin 81 mg daily for secondary stroke prevention. We did review all of the test results today with the patient and her at bedside. All of their questions were answered to their satisfaction. The patient is still showing some evidence of accelerated hypertension. Cardiology has been consulted and we are waiting their further recommendations. We will continue close neurological follow-up for this patient during this admission. Objective - Vital Signs Vital signs: Vital Signs Temp 96.9 F L 06/02/17 12:00 Pulse 69 06/02/17 12:00 Resp 18 06/02/17 12:00 BP 168/95 06/02/17 12:00 Pulse Ox 96 06/02/17 12:00 Intake & Output 06/01/17 06/02/17 06/02/17 18:59 06:59 18:59 Intake Total 240 800 240 Balance 240 800 240 Weight 90.718 kg 93.4 kg Intake: IV 800 Sodium Chloride 0.9% 1, 800 000 ml @ 100 mls/hr IV . Q10H [facility] Rx#:[id number] Oral 240 240 Other: Voiding Method Toilet Toilet # Voids 1 1 2 - Exam Physical examination: PHYSICAL EXAMINATION: Patient is resting comfortably in bed. VITAL SIGNS: Blood pressure is [168/95]. Heart rate is [69]. Respiration is [18] . Temperature is [97.0]. HEENT: Head is atraumatic, neck is supple, there were no carotid bruits. CHEST: Lungs are clear to auscultation and percussion. CARDIAC: S1, S2 normal rate and rhythm. There is no murmur. ABDOMEN: Soft and nontender. Bowel sounds are present. EXTREMITIES: There is no pedal edema. Peripheral pulses are present. Neurological examination: Mental status: Patient is awake alert oriented 3. There is no evidence of any aphasia or dysarthria. Memory and intellectual functions are appropriate for age. Cranial nerve examination: Radial nerves II through pelvic grossly intact. Motor examination: Patient has a left pronator drift. Muscle tone is normal. Muscle strength testing gets evidence of effort related weakness on the left upper extremity. Sensory examination was intact. Deep tendon reflexes are 1+ and symmetric. Plantar responses flexor bilaterally. Coordination and gait not be assessed in this patient at this time. - Labs CBC & Chem 7: 06/02/17 05:36 06/02/17 05:36 Labs: Abnormal Lab Results - Last 24 Hours (Table) 06/02/17 Range/Units 05:36 Creatinine 0.50 L (0.52-1.04) mg/dL Glucose 102 H (74-99) mg/dL AST 12 L (14-36) U/L LDL Cholesterol, Calc 126 H (0-99) mg/dL HDL Cholesterol 38 L (40-60) mg/dL Assessment and Plan (1) Transient brainstem ischemia Current Visit: Yes Status: Acute Code(s): G45.9 - TRANSIENT CEREBRAL ISCHEMIC ATTACK, UNSPECIFIED SNOMED Code(s): 639159072 (2) Acute right MCA stroke Current Visit: Yes Status: Acute Code(s): I63.511 - CEREB INFRC D/T UNSP OCCLS OR STENOS OF RIGHT MID CEREB ART SNOMED Code(s): 780838402 (3) Hypertensive urgency Current Visit: Yes Status: Acute Code(s): I16.0 - HYPERTENSIVE URGENCY SNOMED Code(s): 447557490 (4) Vestibular neuronitis Current Visit: No Status: Acute Code(s): H81.20 - VESTIBULAR NEURONITIS, UNSPECIFIED EAR SNOMED Code(s): 797901182 Plan: This patient is a 61-year-old right-handed white female admitted with symptoms of acute left-sided weakness and dizziness. She underwent extensive neuroimaging study today including MRI ,MRA, and MRV of the brain. All studies were reviewed today with the patient and her at bedside. MRI of the brain came back normal with no evidence of any acute stroke. Clearly no evidence of brainstem ischemia. MRA [place] is normal with no evidence of aneurysm. MRV was also normal. Once again we reviewed all test results today with the patient and her in detail. Neurological exam still reveals some left-sided weakness. We have recommended she should continue with physical therapy either as inpatient or outpatient setting upon discharge. Would recommend consultation with Dr. Scales for further evaluation of left-sided weakness. We would also recommend to place this patient on one baby aspirin 81 mg daily for secondary stroke prevention. Overall prognosis at this time remains guarded.
--- NOTE | 2017-06-02 16:53 | P.CONS ---
History of Present Illness - Chief Complaint Dizziness and gait disturbance - History of Present Illness I had the opportunity to see patient for inpatient rehab consultation with regard to gait disturbance. She was admitted to [facility] June 01 with blood pressure changes and dizziness. Seen by Dr. Hector Vega on date of admission who notes left-sided weakness and diagnosed right MCA infarct. Seen by cardiology for blood pressure changes. Angio-Seal CT demonstrated 2 mm distal right internal carotid lesion. Head CT and chest x-ray and brain MRA normal. Brain MRI with mild punctate chronic lesions. OT reports supervision to completely independent. Speech therapy assess swallowing normal. PT prescribed. Previous functional history as elicited patient corroborative by : 61- year-old right-handed white female who is lives and 2 floor home. They want of bed and breakfast. Independent indeed including cooking, laundry, driving, standing shower and gait without device. Dr. Cordova is regular doctor. Family history father with cardiac disease and diabetes in mother with hypertension. Review of Systems Review of systems: ENT: Denies sneezes or discharge. Eyes: Denies discharge or photophobia. Cardiac: Denies chest pain or palpitation. Pulmonary: Denies cough or shortness of breath. Breast: Denies discharge or lumps. Gastrointestinal: Denies nausea, emesis, constipation, diarrhea. Genitourinary: Denies discharge or frequency. Musculoskeletal: Denies muscle or bone aches. Neurologic: Denies motor or sensory change. Denies any further dizziness, as well. Endocrine: Denies shakes or sweats. Oncology: Denies cancers. Dermatologic: Denies rash, itching, pruritus. ALLERGY/immunology: Denies sneezes, rashes. Past Medical History Past Medical History: Hypertension, Mitral Valve Prolapse (MVP) Additional Past Medical History / Comment(s): TIA possible middle ear issue 2015-vertigo, pt states recently tx for ear infection. History of Any Multi-Drug Resistant Organisms: None Reported Past Surgical History: Cholecystectomy, Hysterectomy Additional Past Surgical History / Comment(s): colonoscopy Past Anesthesia/Blood Transfusion Reactions: No Reported Reaction Smoking Status: Former smoker - Past Family History Father Family Medical History: Coronary Artery Disease (CAD), Diabetes Mellitus, Myocardial Infarction (ND) Additional Family Medical History / Comment(s): Father had a pacemaker. He at the age of 76yrs from a ND. Mother Family Medical History: GERD/Reflux, Hypertension Medications and Allergies Home Medications Medication Instructions Recorded Confirmed Type ALPRAZolam [Xanax] 0.25 mg PO Q8HR PRN 11/22/15 06/01/17 History Aspirin 325 mg PO DAILY PRN 11/22/15 06/01/17 History Cholecalciferol [Vitamin D3] 2,000 unit PO DAILY 11/22/15 06/01/17 History Atenolol [Tenormin] 25 mg PO DAILY #30 tab 11/25/15 06/01/17 Rx Allergies Allergy/AdvReac Type Severity Reaction Status Date / Time Sulfa (Sulfonamide Allergy Swelling Verified 06/01/17 09:23 Antibiotics) codeine AdvReac Unknown Verified 06/01/17 09:23 lisinopril AdvReac Unknown Verified 06/01/17 09:23 omeprazole [From Prilosec] AdvReac Rash/Hives Verified 06/01/17 14:15 ramipril AdvReac Unknown Verified 06/01/17 09:23 steroids AdvReac Unknown Uncoded 06/01/17 09:23 Physical Exam Vitals: Vital Signs Temp Pulse Resp BP Pulse Ox 06/02/17 12:00 96.9 F L 69 18 168/95 96 06/02/17 08:00 96.9 F L 83 18 183/89 98 06/02/17 03:59 64 18 06/02/17 03:58 97.3 F L 64 18 151/94 99 06/02/17 00:00 96.8 F L 68 18 134/72 98 06/01/17 20:00 96.9 F L 68 18 151/82 94 L 06/01/17 17:25 96.9 F L 75 18 164/101 98 Intake and Output 06/02/17 06/02/17 06/02/17 06:59 14:59 22:59 Intake Total 800 480 Balance 800 480 Intake: IV 800 Sodium Chloride 0.9% 1, 800 000 ml @ 100 mls/hr IV . Q10H [facility] Rx#:[id number] Oral 480 Other: Voiding Method Toilet Toilet # Voids 1 2 Weight 93.4 kg Skin: Good color, texture, turgor. General: Medium build and comfortable appearance. Head: Normocephalic, atraumatic. Eyes: Symmetric. Pupils equal round. Ears: Symmetric. Hearing within normal limits. Mouth: Clear. Neck: Supple. Carotid without bruit. Cardiac: Regular rate and rhythm. Lungs: Clear anteriorly and posteriorly. Abdomen: Soft active nontender. Extremities: Normal tone. Neurological: Mental status: Alert, cooperative, pleasant. Cranial nerves: Symmetric facial tone and trapezius. Motor: Normal strength and isolation all 4 limbs. Sensation: Intact throughout. DTRs: Symmetric and equal throughout. Mobility: Sits and stands without assistance or verbal cueing or loss of balance. Results CBC & Chem 7: 06/02/17 05:36 06/02/17 05:36 Labs: Abnormal Lab Results - Last 24 Hours (Table) 06/02/17 Range/Units 05:36 Creatinine 0.50 L (0.52-1.04) mg/dL Glucose 102 H (74-99) mg/dL AST 12 L (14-36) U/L LDL Cholesterol, Calc 126 H (0-99) mg/dL HDL Cholesterol 38 L (40-60) mg/dL Chest x-ray: report reviewed (Negative.) CT Scan - head: report reviewed (Head CT negative. Angios CT with 2 mm distal right internal carotid lesion.) MRI - head: report reviewed (Brain MRI with mild punctate chronic lesion. Brain MRA normal.) Assessment and Plan (1) Acute right MCA stroke Current Visit: Yes Status: Acute Code(s): I63.511 - CEREB INFRC D/T UNSP OCCLS OR STENOS OF RIGHT MID CEREB ART SNOMED Code(s): 952153645 Plan: Impression: 1. Gait disturbance. 2. Right MCA infarct with left hemiparesthesias, appears now resolved. 2. Dizziness. 3. Hypertension. 4. Mitral valve prolapse. Comments and plan: At this time PT, OT, ST T, ongoing. OT and PULMONOLOGY PHYSICIAN report patient really independent. Anticipate PT will find same. Anticipate patient will do well and return to home. Defer any restrictions to Dr. Vega.
[2017-06-02] MEDS: amLODIPine 2.5 MG TAB PO SCH (19:12)
[2017-06-02] MEDS: ASPIRIN 81 MG PO SCH (19:14)
[2017-06-02] MEDS: ATORVASTATIN 40 MG TAB PO SCH (20:06)
[2017-06-03 06:01] LABS: Basophils % (A) 1 %; Eosinophils # (A) 0.4 k/uL (0-0.7); Eosinophils % (A) 7 %; HCT 38.5 % (34.0-46.0); HGB 12.2 gm/dL (11.4-16.0); Lymphocytes # (A) 1.8 k/uL (1.0-4.8); Lymphocytes % (A) 32 %; MCH 25.1 pg (25.0-35.0); MCHC 31.6 g/dL (31.0-37.0); MCV 79.6 fL (80.0-100.0); Monocytes # (A) 0.3 k/uL (0-1.0); Monocytes % (A) 5 %; Neutrophils # (A) 2.9 k/uL (1.3-7.7); Neutrophils % (A) 54 %; Platelet Count 199 k/uL (150-450); RBC 4.84 m/uL (3.80-5.40); RDW 13.1 % (11.5-15.5); WBC 5.5 k/uL (3.8-10.6)
[2017-06-03 08:24] LABS: ALT 19 U/L (9-52); AST 34 U/L (14-36); Albumin 3.7 g/dL (3.5-5.0); Alkaline Phosphatase 64 U/L (38-126); Anion Gap 9 mmol/L; Blood Urea Nitrogen 11 mg/dL (7-17); Calcium 9.1 mg/dL (8.4-10.2); Carbon Dioxide 27 mmol/L (22-30); Chloride 106 mmol/L (98-107); Glucose 93 mg/dL (74-99); Potassium 4.1 mmol/L (3.5-5.1); Sodium 142 mmol/L (137-145); Total Bilirubin 0.8 mg/dL (0.2-1.3); Total Protein 6.5 g/dL (6.3-8.2)
[2017-06-03] MEDS: amLODIPine 2.5 MG TAB PO SCH (08:34)
[2017-06-03] MEDS: ASPIRIN 81 MG PO SCH (08:34)
[2017-06-03] MEDS: ATENOLOL 25 MG TAB PO SCH ×2 (08:34→20:36)
--- NOTE | 2017-06-03 11:44 | ECHOF ---
Referral Reason:Thrombus MEASUREMENTS -------- HEIGHT: 157.5 cm WEIGHT: 90.7 kg BP: RVIDd: 2.7 cm (< 3.3) IVSd: 0.9 cm (0.6 - 1.1) LVIDd: 4.9 cm (3.9 - 5.3) LVPWd: 1.0 cm (0.6 - 1.1) IVSs: 1.2 cm LVIDs: 3.9 cm LVPWs: 1.1 cm LA Diam: 4.1 cm (2.7 - 3.8) LAESV Index (A-L): 39.62 ml/m Ao Diam: 3.2 cm (2.0 - 3.7) AV Cusp: 1.7 cm (1.5 - 2.6) LA Diam: 3.9 cm (2.7 - 3.8) MV EXCURSION: 18.048 mm (> 18.000) MV EF SLOPE: 80 mm/s (70 - 150) EPSS: 0.7 cm MV E Prosper: 0.55 m/s MV DecT: 229 ms MV A [place]per: 0.79 m/s MV E/A Ratio: 0.70 RAP: 5.00 mmHg RVSP: 31.33 mmHg FINDINGS -------- Sinus rhythm. This was a technically good study. LV size, wall thickness and systolic function are normal, with an EF greater than 55%. The left jax tricular size is normal. The right ventricle is normal in size. LA is severely dilated >40 ml/m2 The right atrial size is normal. The aortic valve is trileaflet, and appears structurally normal. No aortic stenosis or regurgitation. Mild mitral annular calcification present. Mild mitral regurgitation is present. Mild tricuspid regurgitation present. There is no evidence of pulmonary hypertension. The right v entricular systolic pressure, as measured by Doppler, is 31.33mmHg. There is no pulmonic regurgitation present. The aortic root size is normal. There is no pericardial effusion. CONCLUSIONS -------- 1. LV size, wall thickness and systolic function are normal, with an EF greater than 55%. 2. The left ventricular size is normal. 3. LA is severely dilated >40 ml/m2 4. The aortic valve is trileaflet, and appears structurally normal. No aortic stenosis or regurgitati on. 5. Mild mitral annular calcification present. 6. Mild mitral regurgitation is present. 7. Mild tricuspid regurgitation present. 8. There is no evidence of pulmonary hypertension. 9. The right ventricular systolic pressure, as measured by Doppler, is 31.33mmHg. 10. There is no pulmonic regurgitation present. 11. The aortic root size is normal. 12. There is no pericardial effusion. [employer] MANAGER: Florence Quintanilla RDCS
[2017-06-03] MEDS: CHOLECALCIFEROL 1,000 UNIT TAB PO SCH (12:52)
[2017-06-03] MEDS: ALPRAZolam 0.25 MG TAB PO PRN ×2 (14:45→23:10)
--- NOTE | 2017-06-03 14:59 | P.PN ---
Subjective Progress Note Date: 06/03/17 This is a 61-year-old female, patient of Dr. Cordova. She has a known past medical history of generalized anxiety disorder, TIA and hypertension. Patient reports that she woke up around 4:00 this morning to go use the restroom when she sat up she had severe dizziness. She had difficulty walking to the bathroom she had to hold onto different pieces of furniture. She reports that she has been, leaning more towards the left side. She reports that this does feel similar to a couple years ago when she did have a TIA. She also reports feeling that there is pressure on the top of her head. She was recently treated for an ear infection. She took 5 days of Augmentin for a left ear infection. Patient denies any pain or ear she denies any fevers or chills or sweats. Denies any vomiting. She does experience occasional nausea with the dizziness. Denies any bowel movement changes or urinary symptoms. She denies any cough or cold-like symptoms her sinus infection symptoms. Denies any ear pain. She did have one episode of ringing in the left ear during the ambulance ride. Patient reports yesterday she had been doing well with no problems. She presented with elevated blood pressure of 216/98 she does report taking her atenolol earlier this morning. She denies any chest pain. But does report feeling like something was stuck in her throat. Troponin was negative. EKG showing normal sinus rhythm. Chest x-rays negative. Computed tomography scan of the brain showed no acute changes CTA of the head and neck showed a 2 mm lateral distal right internal carotid siphon aneurysm is not excluded. MRA [place] is recommended. Arthritis plaquing carotid bifurcations without significant flow limiting stenosis. Neurology has been consulted. Patient is also noted some left leg weakness. During her hospitalization in November 2015 she was diagnosed with TIA there were also concerns about possible vestibular neuronitis. Patient reports laying flat on her back makes symptoms worse. Patient did take an aspirin and Xanax with no improvement in symptoms. 06/02/2017 patient's head pressure has resolved. Dizziness is improving. Still has some left leg weakness. She is scheduled for an MRI MRA and MRV of the brain today as well as echocardiogram. Concerns of possible brainstem ischemia. Also further evaluation in regards to the 2 mm aneurysm in the right internal carotid artery. Patient denies any chest pain or shortness of breath. Denies any nausea or vomiting. Denies any bowel movement changes or urinary symptoms. She is eating and drinking appropriately. Patient is having fluctuating blood pressures. Cardiology following. Norvasc added yesterday. But was not given. Blood pressure had come down to 160 systolic. Fluids will be hep-locked. 06/03/2017 patient is alert and oriented 3 in no apparent distress blood pressure is elevated she was started today on Norvasc however she had side effect of palpitation patient was able to contact her physician and she was told that she was also ALLERGIC to Norvasc. At this time Norvasc was discontinued case was discussed with cardiology will continue to monitor blood pressure closely continue was atenolol at this time if blood pressure is not well controlled we will add low-dose of diuretic. Neurological testing were reviewed and discussed was patient. Objective - Vital Signs Vital signs: Vital Signs Temp 96.9 F L 06/03/17 08:00 Pulse 65 06/03/17 12:00 Resp 18 06/03/17 04:00 BP 156/84 06/03/17 12:00 Pulse Ox 98 06/03/17 10:44 Intake & Output 06/02/17 06/03/17 06/03/17 18:59 06:59 18:59 Intake Total 720 700 Balance 720 700 Weight 92.2 kg Intake: Oral 720 700 Other: Voiding Method Toilet Toilet # Voids 2 1 - Exam Head normocephalic, and atraumatic Neck supple, no JVD no goiter no lymphadenopathy Lungs clear to auscultation bilaterally no wheezing or crackles Heart regular rate and rhythm S1-S2, no rub or gallop Abdomen is soft nontender nondistended positive bowel sounds no hepatosplenomegaly Extremities no edema, no cyanosis or clubbing Neuro alert and orientated to 3. Left lower extremity weakness 3 out of 5 muscle strength - Labs CBC & Chem 7: 06/03/17 05:51 06/03/17 05:51 Labs: Abnormal Lab Results - Last 24 Hours (Table) 06/03/17 Range/Units 05:51 MCV 79.6 L (80.0-100.0) fL Assessment and Plan Plan: 1. Severe dizziness with left leg weakness: Concern about possible brainstem ischemia. Initial computed tomography scan of the brain shows no acute changes. CT of the head and neck did reveal a 2 mm lateral distal right carotid siphon aneurysm not to be excluded. MRA , MRV and MRI of the brain have been ordered. Neurology has been consulted. Continue telemetry monitoring. EKG had shown normal sinus rhythm. Echo pending . lipid panel checked. Aspirin currently on hold until MRA done due to aneurysm or evaluated by neurology 2. Accelerated hypertension: Continue to monitor blood pressures. Patient given her atenolol this morning. Norvasc 2.5 mg daily added. Patient developed palpitation and was told by her primary care physician that she is ALLERGIC to Norvasc, this was discontinued will continue to monitor blood pressure and possibly add a low-dose of diuretic if needed Hep-Lock IV fluids. Patient evaluated by cardiology 3. Generalized anxiety disorder: We'll resume patient's xanax. She can continue with the Ativan as needed for her claustrophobia 4. Previous history of TIA that had affected the left side 5. Recent left ear infection. Completed treatment with Augmentin about 1 week ago
--- NOTE | 2017-06-03 15:05 | P.PN ---
Subjective Progress Note Date: 06/03/17 This is a pleasant 61-year-old female with history of hypertension, prior TIA in November 2015, strong family history of premature coronary artery disease, generalized anxiety disorder. Patient presents to the hospital with symptoms of feeling woozy and unsteady. She states she did not have symptoms of dizziness like vertigo, she states it was more that she felt she was walking in a cloud, she felt foggy, she states she also had a headache on the top of her head. Patient felt unsteady in walking and felt as though she was mildly leaning to the left side. She took her blood pressure medications in the morning along with a Xanax, then went to her primary doctor's office explaining the symptoms, she was recommended to come to the emergency room for further evaluation. Patient has been recently treated with Augmentin as an outpatient for an ear infection. According to the patient, she had been diagnosed with a TIA in November 2015, at that time she states that she had significant dizziness and vertigo. Her blood pressure back then was in the 200 systolic range. Blood pressure on arrival here to 16/98, heart rate in the 80s, 98% on room air. She is afebrile. EKG on arrival here shows a normal sinus rhythm with no acute changes. CT angiogram was performed which revealed a 2 mm lateral distal right internal carotid aneurysm. Atheromatous plaque carotid bifurcations without significant flow limiting stenosis. CAT scan of the brain did not reveal any acute intracranial process. Chest x-ray did not reveal any acute cardiopulmonary process. CBC was normal. Sodium 143, potassium 4.0, BUN 9, creatinine 0.5. Troponin 0.012. Cholesterol 187, LDL 126, HDL 38, triglycerides 113. At the time of my examination this morning, patient states she does feel better, she was ambulated this morning with physical therapy who noted that she still has mild leaning to the left-side. The patient was seen in consultation by neurology who are recommending she undergo an MRI of the brain and MRA of the [place] for further evaluation of acute stroke. Blood pressure this morning 182/88, heart rate in the 80s. 98% on room air. The patient is currently on Tenormin 25 mg daily at home for blood pressure. This has been resumed here, and patient was also initiated on Norvasc 2.5 mg daily. 06/03/2017 Patient seen and examined this morning, she didn't ambulate in the hallway today without difficulty. MRI of the brain did not reveal any acute ischemic area no obvious aneurysm. Echo shows an ejection fraction of 55%. Blood pressure 156/84 with a heart rate in the 60s. Patient refusing to take the Norvasc because she had a reaction to it in the past. The decision was made to increase her atenolol to 25 mg twice daily, if the blood pressure remained stable we will continue with that. If she continues to have spikes in blood pressure, we will consider adding a diuretic to her medications tomorrow. Objective - Vital Signs Vital signs: Vital Signs Temp 96.9 F L 06/03/17 08:00 Pulse 65 06/03/17 12:00 Resp 18 06/03/17 04:00 BP 156/84 06/03/17 12:00 Pulse Ox 98 06/03/17 10:44 Intake & Output 06/02/17 06/03/17 06/03/17 18:59 06:59 18:59 Intake Total 720 700 Balance 720 700 Weight 92.2 kg Intake: Oral 720 700 Other: Voiding Method Toilet Toilet # Voids 2 1 - Exam PHYSICAL EXAMINATION: HEENT: Head is atraumatic, normocephalic. Pupils equal, round. Neck is supple. There is no elevated jugular venous pressure. HEART EXAMINATION: Heart S1, S2 normal. No murmur or gallop heard. CHEST EXAMINATION: Lungs are clear to auscultation and precussion. No chest wall tenderness is noted on palpation or with deep breathing. ABDOMEN: Soft, nontender. Bowel sounds are heard. No organomegaly noted. EXTREMITIES: 2+ peripheral pulses with no evidence of peripheral edema and no calf tenderness noted. NEUROLOGIC patient is awake, alert and oriented -3. . - Labs CBC & Chem 7: 06/03/17 05:51 06/03/17 05:51 Labs: Abnormal Lab Results - Last 24 Hours (Table) 06/03/17 Range/Units 05:51 MCV 79.6 L (80.0-100.0) fL Assessment and Plan Plan: Assessment and plan #1 symptoms of unsteadiness and left-sided weakness rule out CVA #2 accelerated hypertension #3 history of a TIA #4 recent left ear infection, treated with Augmentin #5 generalized anxiety disorder Plan We will increase the dose of atenolol to 25 mg twice daily. If the patient's blood pressure remained stable we will continue with that, if she continues to have spikes in blood pressure, we will add a diuretic DNP note has been reviewed, I agree with a documented findings and plan of care. Patient was seen and examined.
--- NOTE | 2017-06-03 17:21 | P.PN ---
Subjective Progress Note Date: 06/03/17 This patient is a pleasant 7oyear-old right-handed white female who was admitted yesterday to Hospital with symptoms of left-sided weakness and dizziness. Patient presented with episode of acute onset of symptoms at 4 AM yesterday morning. She was subtly brought into the emergency room where she was evaluated in the ER by Dr. Yoo. She was sent for CT scan of the brain as well as a CTA angiogram of the head and neck. CT of the brain revealed no acute changes. CTA of the head and neck revealed a 2 mm lateral distal right internal carotid artery siphon aneurysm was not excluded. The patient's neurological examination did reveal some left-sided weakness yesterday on examination. This seems to have improved today. She was sent for further imaging study today including MRI of the brain which was completed today and reveals no acute areas of ischemia. There was mild punctate chronic white matter ischemic changes noted which is unchanged from previous study from 2016. She also had MRA [place] which revealed no obvious abnormality and no evidence of aneurysm. MRV was normal. We have reviewed the results of all of the neuroimaging studies today with the patient. She is doing better overall and apparently headache pressure has resolved. Dizziness also seems to be improving. Her neurological examination however still reveals some left- sided weakness. Hand manager cargo strength on the left seems to be effort related. We would recommend to continue with physical therapy assessment. She may benefit from outpatient PT/ OT evaluation. She may also be a good candidate for inpatient rehab. Would recommend consultation with Dr. Scales for further evaluation. At this time there is no evidence of acute stroke on her MRI of the brain. Would recommend to start her on low-dose aspirin 81 mg daily for secondary stroke prevention. We did review all of the test results today with the patient and her at bedside. All of their questions were answered to their satisfaction. The patient is still showing some evidence of accelerated hypertension. Cardiology has been consulted and we are waiting their further recommendations. The patient was seen yesterday by Dr. Jauregui. She has been showing improvement and likely does not require inpatient rehab. Patient's states he would like her to go to outpatient physical therapy upon discharge. The patient has been up and ambulating well without any falls. She still feels slight weakness in the left lower extremity. As noted she would benefit from outpatient physical therapy upon discharge. Cardiology is adjusting her antihypertensive medications. She still has evidence of accelerated hypertension today. We will await further recommendations from cardiology were monitoring her blood pressure very closely. We will continue close neurological follow-up for this patient during this admission. Objective - Vital Signs Vital signs: Vital Signs Temp 96.9 F L 06/03/17 08:00 Pulse 65 06/03/17 12:00 Resp 18 06/03/17 04:00 BP 156/84 06/03/17 12:00 Pulse Ox 98 06/03/17 10:44 Intake & Output 06/02/17 06/03/17 06/03/17 18:59 06:59 18:59 Intake Total 720 700 Balance 720 700 Weight 92.2 kg Intake: Oral 720 700 Other: Voiding Method Toilet Toilet # Voids 2 1 - Exam Physical examination: PHYSICAL EXAMINATION: Patient is resting comfortably in bed. VITAL SIGNS: Blood pressure is [156/84]. Heart rate is [65]. Respiration is [18] . Temperature is [97.0]. HEENT: Head is atraumatic, neck is supple, there were no carotid bruits. CHEST: Lungs are clear to auscultation and percussion. CARDIAC: S1, S2 normal rate and rhythm. There is no murmur. ABDOMEN: Soft and nontender. Bowel sounds are present. EXTREMITIES: There is no pedal edema. Peripheral pulses are present. Neurological examination: Mental status: Patient is awake alert oriented 3. There is no evidence of any aphasia or dysarthria. Memory and intellectual functions are appropriate for age. Cranial nerve examination: Radial nerves II through pelvic grossly intact. Motor examination: Patient has a mild left pronator drift. Muscle tone is normal. Muscle strength testing gets evidence of effort related weakness on the left upper extremity. Sensory examination was intact. Deep tendon reflexes are 1+ and symmetric. Plantar responses flexor bilaterally. Coordination and gait cannot be assessed in this patient at this time. - Labs CBC & Chem 7: 06/03/17 05:51 06/03/17 05:51 Labs: Abnormal Lab Results - Last 24 Hours (Table) 06/03/17 Range/Units 05:51 MCV 79.6 L (80.0-100.0) fL Assessment and Plan (1) Transient brainstem ischemia Current Visit: Yes Status: Acute Code(s): G45.9 - TRANSIENT CEREBRAL ISCHEMIC ATTACK, UNSPECIFIED SNOMED Code(s): 183657548 (2) Acute right MCA stroke Current Visit: Yes Status: Acute Code(s): I63.511 - CEREB INFRC D/T UNSP OCCLS OR STENOS OF RIGHT MID CEREB ART SNOMED Code(s): 703561315 (3) Hypertensive urgency Current Visit: Yes Status: Acute Code(s): I16.0 - HYPERTENSIVE URGENCY SNOMED Code(s): 553350538 (4) Vestibular neuronitis Current Visit: No Status: Acute Code(s): H81.20 - VESTIBULAR NEURONITIS, UNSPECIFIED EAR SNOMED Code(s): 728785267 Plan: Patient is resting comfortably today and is noted some improvement with her ability to walk and ambulate. She was seen yesterday by Dr. Jauregui for possible inpatient rehab. He feels she would be adequate for discharge and have outpatient follow-up. Patient likely will benefit from outpatient physical therapy evaluation and treatment. We reviewed all of her recent neuroimaging studies and test results with the patient in detail today. She is being considered for possible discharge however her blood pressure remains labile at this time. Cardiology is monitoring her closely and is making adjustments in her antihypertensive medications. We will await further recommendations from cardiology regarding long-term management. Patient otherwise states she was able to ambulate today in the hallway without any major difficulties. We will continue to follow her progress closely during this admission. Her overall prognosis at this time remains guarded.
[2017-06-03] MEDS: ATORVASTATIN 40 MG TAB PO SCH (20:38)
[2017-06-04 04:42] VITALS: TEMP 98
[2017-06-04 06:12] LABS: Basophils # (A) 0.1 k/uL (0-0.2); Basophils % (A) 1 %; Eosinophils # (A) 0.3 k/uL (0-0.7); Eosinophils % (A) 4 %; HCT 41.2 % (34.0-46.0); HGB 13.4 gm/dL (11.4-16.0); Lymphocytes # (A) 2.4 k/uL (1.0-4.8); Lymphocytes % (A) 31 %; MCH 25.8 pg (25.0-35.0); MCHC 32.5 g/dL (31.0-37.0); MCV 79.5 fL (80.0-100.0); Mean Platelet Volume 6.7; Monocytes # (A) 0.4 k/uL (0-1.0); Monocytes % (A) 5 %; Neutrophils # (A) 4.4 k/uL (1.3-7.7); Neutrophils % (A) 58 %; Platelet Count 213 k/uL (150-450); RBC 5.18 m/uL (3.80-5.40); RDW 13.2 % (11.5-15.5); WBC 7.7 k/uL (3.8-10.6)
[2017-06-04] MEDS: ALPRAZolam 0.25 MG TAB PO PRN (06:25)
[2017-06-04 06:27] LABS: ALT 17 U/L (9-52); AST 14 U/L (14-36); Albumin 4.3 g/dL (3.5-5.0); Alkaline Phosphatase 70 U/L (38-126); Anion Gap 10 mmol/L; Blood Urea Nitrogen 12 mg/dL (7-17); Calcium 9.9 mg/dL (8.4-10.2); Carbon Dioxide 28 mmol/L (22-30); Chloride 104 mmol/L (98-107); Glucose 93 mg/dL (74-99); Potassium 4.3 mmol/L (3.5-5.1); Sodium 142 mmol/L (137-145); Total Bilirubin 0.8 mg/dL (0.2-1.3); Total Protein 7.5 g/dL (6.3-8.2)
[2017-06-04] MEDS: ASPIRIN 81 MG PO SCH (08:54)
[2017-06-04] MEDS: ATENOLOL 25 MG TAB PO SCH (08:54)
[2017-06-04] MEDS: CHOLECALCIFEROL 1,000 UNIT TAB PO SCH (08:54)
[2017-06-04] MEDS ORDERED: HYDROCHLOROTHIAZIDE 25 MG TAB PO SCH (09:00)
[2017-06-04] MEDS ORDERED: amLODIPine 5 MG TAB PO SCH (09:00)
--- NOTE | 2017-06-04 10:56 | P.DS ---
Providers Date of admission: 06/01/17 12:26 Expected date of discharge: 06/04/17 Attending physician: Rylee Rosario Consults: 06/01/17 12:26 Consult Physician Urgent Consulting Provider: Jas Sheth Consult Reason/Comments: cva Do you want consulting provider notified?: Yes 06/01/17 15:10 Consult Physician Routine Consulting Provider: Salud Mills Consult Reason/Comments: CVA, hypertension Do you want consulting provider notified?: Yes 06/02/17 16:30 Consult Physician Urgent Consulting Provider: Parker Scales Consult Reason/Comments: Left sided hemiparesis. Do you want consulting provider notified?: Yes Primary care physician: Chastity Cordova Hospital Course: Discharge diagnosis 1. Severe dizziness with left leg weakness: Possibly secondary to transient brainstem ischemia. Initial computed tomography scan of the brain shows no acute changes. CT of the head and neck did reveal a 2 mm lateral distal right carotid siphon aneurysm not to be excluded. EKG had shown normal sinus rhythm. Patient seen by neurology. MRI of the brain shows no acute ischemic area. Some mild punctate chronic ischemic changes may be present but similar to 2016 MRI. No obvious aneurysm. MRA and MRV of the brain showed normal MRA [place]. Abnormality identified on the CT of the brain not evident on current MRA. And normal MRV brain. Patient was started on a baby aspirin and statin. Her left leg weakness and dizziness have shown improvement. Echo shows an EF of 55% with no significant valvular abnormality 2. Accelerated hypertension: Seen by cardiology. Atenolol was increased to 25 mg twice a day. Hydrochlorothiazide 25 mg daily also added. 3. Generalized anxiety disorder: We'll resume patient's xanax. 4. Previous history of TIA that had affected the left side 5. Recent left ear infection. Completed treatment with Augmentin about 1 week ago Hospital course This is a 61-year-old female, patient of Dr. Cordova. She has a known past medical history of generalized anxiety disorder, TIA and hypertension. Patient reports that she woke up around 4:00 this morning to go use the restroom when she sat up she had severe dizziness. She had difficulty walking to the bathroom she had to hold onto different pieces of furniture. She reports that she has been, leaning more towards the left side. She reports that this does feel similar to a couple years ago when she did have a TIA. She also reports feeling that there is pressure on the top of her head. She was recently treated for an ear infection. She took 5 days of Augmentin for a left ear infection. Patient denies any pain or ear she denies any fevers or chills or sweats. Denies any vomiting. She does experience occasional nausea with the dizziness. Denies any bowel movement changes or urinary symptoms. She denies any cough or cold-like symptoms her sinus infection symptoms. Denies any ear pain. She did have one episode of ringing in the left ear during the ambulance ride. Patient reports yesterday she had been doing well with no problems. She presented with elevated blood pressure of 216/98 she does report taking her atenolol earlier this morning. She denies any chest pain. But does report feeling like something was stuck in her throat. Troponin was negative. EKG showing normal sinus rhythm. Chest x-rays negative. Computed tomography scan of the brain showed no acute changes CTA of the head and neck showed a 2 mm lateral distal right internal carotid siphon aneurysm is not excluded. MRA [place] is recommended. Arthritis plaquing carotid bifurcations without significant flow limiting stenosis. Neurology has been consulted. Patient is also noted some left leg weakness. During her hospitalization in November 2015 she was diagnosed with TIA there were also concerns about possible vestibular neuronitis. Patient reports laying flat on her back makes symptoms worse. Patient did take an aspirin and Xanax with no improvement in symptoms. Patient seen by neurology. They felt that symptoms are likely related to a transient brainstem ischemia. Her left leg weakness are improving. She is working with physical therapy. Strength is almost back to normal. Her elevated blood pressures could be contributed to some of her dizziness. At this time patient reports dizziness has resolved. A small aneurysm was noted on the CTA of the head and neck. Further follow-up with MRI of the brain and MRA of the brain shows no evidence of acute stroke or aneurysm. Patient also seen by cardiology in regards to her elevated blood pressures. Atenolol increased and hydrochlorothiazide added for blood are better blood pressure control. I recommend the patient checks her blood pressures daily and records. We'll follow-up with her PCP and neurology in the office. Patient's symptoms are improving she is medically stable for discharge. Home care with physical therapy will be arranged. Also discussed with patient to continue taking her Xanax for her anxiety disorder. A prescription of 20 pills was given Xanax. I performed an examination of the patient and discussed their management with the physician Plater Apprentice. I have reviewed the Physician Plater Apprentice's notes and agree with the documented findings and plan of care Patient Condition at Discharge: Stable Plan - Discharge Summary Discharge Rx Participant: Yes New Discharge Prescriptions: New Aspirin 81 mg PO DAILY #30 chew Atenolol [Tenormin] 25 mg PO BID #60 tab Atorvastatin [Lipitor] 40 mg PO HS #30 tab Hydrochlorothiazide [Hydrodiuril] 25 mg PO DAILY #30 tab Continue Cholecalciferol [Vitamin D3] 2,000 unit PO DAILY ALPRAZolam [Xanax] 0.25 mg PO Q8HR PRN #20 tablet PRN Reason: Anxiety Discontinued Aspirin 325 mg PO DAILY PRN PRN Reason: Headache Atenolol [Tenormin] 25 mg PO DAILY #30 tab Discharge Medication List Cholecalciferol [Vitamin D3] 2,000 unit PO DAILY 11/22/15 [History] ALPRAZolam [Xanax] 0.25 mg PO Q8HR PRN #20 tablet 06/04/17 [Rx] Aspirin 81 mg PO DAILY #30 chew 06/04/17 [Rx] Atenolol [Tenormin] 25 mg PO BID #60 tab 06/04/17 [Rx] Atorvastatin [Lipitor] 40 mg PO HS #30 tab 06/04/17 [Rx] Hydrochlorothiazide [Hydrodiuril] 25 mg PO DAILY #30 tab 06/04/17 [Rx] Follow up Appointment(s)/Referral(s): Jas Sheth MD [STAFF PHYSICIAN] - 2 Weeks Chastity Cordova MD [Primary Care Provider] - 1 Week Patient Instructions/Handouts: Hypertension (DC), Stroke (DC) Activity/Diet/Wound Care/Special Instructions: Diet: cardiac Activity: as tolerated Discharge Disposition: HOME WITH HOME HEALTH SERVICES
[2017-06-04 11:40] VITALS: BP 139/73
[2017-06-04 11:49] VITALS: PULSE 56; RESP 16
== END 2017-06-04 13:54 | disposition home or self-care (01) | DRG 69 ==
LOC: EC 08:51 → 6SEL 12:26
PROVIDERS: ADMIT Internal Medicine; ATTEND Internal Medicine
DX: G45.9 Transient cerebral ischemic attack, unspecified (principal); G81.94 Hemiplegia, unspecified affecting left nondominant side; H81.20 Vestibular neuronitis, unspecified ear; F41.1 Generalized anxiety disorder; I10 Essential (primary) hypertension; H66.92 Otitis media, unspecified, left ear; F40.240 Claustrophobia; I16.0 Hypertensive urgency; R40.2362 Coma scale, best motor response, obeys commands, at arrival to emergency department; R40.2142 Coma scale, eyes open, spontaneous, at arrival to emergency department; R29.702 NIHSS score 2; R40.2252 Coma scale, best verbal response, oriented, at arrival to emergency department; I34.1 Nonrheumatic mitral (valve) prolapse; Z90.710 Acquired absence of both cervix and uterus; Z90.49 Acquired absence of other specified parts of digestive tract; Z87.891 Personal history of nicotine dependence; Z79.82 Long term (current) use of aspirin; Z79.899 Other long term (current) drug therapy; Z88.5 Allergy status to narcotic agent; Z88.2 Allergy status to sulfonamides; Z88.8 Allergy status to other drugs, medicaments and biological substances
CPT/HCPCS: 36415; 70450; 70496; 70498; 70544; 70551; 71046; 80053; 80061; 82550; 82553; 84484; 85025; 85610; 85730; 93005; 93306; 96374; 99285

== ENCOUNTER → 2018-02-05 | Outpatient (CLI) | payer BC ==
--- NOTE | 2018-02-05 15:36 | XR ---
EXAMINATION TYPE: XR chest 2V DATE OF EXAM: 02/05/2018 COMPARISON: 06/01/2017 HISTORY: Bronchitis. Wheezing. TECHNIQUE: Frontal and lateral views of the chest are obtained. FINDINGS: There is no focal air space opacity, pleural effusion, or pneumothorax seen. There is mild interstitial prominence. The cardiac silhouette size is within normal limits. The osseous structur es are intact. Minimal multilevel degenerative changes of the thoracic spine are noted. IMPRESSION: No focal consolidation to suggest pneumonia. Mild interstitial prominence seen diffusely thickened be seen in atypical pneumonitis, bronchitis or fluid overload.
== END | disposition home or self-care (01) ==
LOC: RADXRMAIN 14:24
PROVIDERS: ATTEND Nurse Practitioner
DX: R91.8 Other nonspecific abnormal finding of lung field (principal)
CPT/HCPCS: 71046

== ENCOUNTER 2018-04-09 14:59 | Observation (INO) | payer BC ==
[2018-04-09] MEDS ORDERED: ASPIRIN 81 MG PO STA (15:27)
[2018-04-09] MEDS ORDERED: NITROGLYCERIN OINT 1 INCH/GM PACKET TOPICAL STA (15:27)
[2018-04-09] MEDS ORDERED: LORazepam 2 MG/ML INJ IV STA (15:27)
--- NOTE | 2018-04-09 15:32 | ED ---
General Adult HPI - General Source: patient, RN notes reviewed Mode of arrival: ambulatory Limitations: no limitations <Jayy Valdovinos - Last Filed: 04/09/18 17:06> <Jayy Case - Last Filed: 04/09/18 17:35> - General Chief complaint: Chest Pain Stated complaint: Chest pain Time Seen by Provider: 04/09/18 15:00 - History of Present Illness Initial comments: This is a 62-year-old female with past medical history significant for hypertension. Patient comes in today because over the week she's been experiencing a variety of symptoms that it been concerning. Patient states last Thursday when she was exerting himself walking around [place] she started having chest pain or shortness of breath. Patient states it lasted about 10 minutes but her left arm also felt heavy during this time. Patient states that again occurred on Thursday and went away in about 10 minutes again. Patient states throughout the week she felt a little better however she did have an episode of chest heaviness that did radiate to the left arm and again made her short of breath. Patient states the last 3 days her blood pressures been elevated and has not been coming down and that is also concerned her. Patient states when she woke up this morning she was having a little bit of discomfort in her chest and her upper back. Patient states today on her drive here she was having chest discomfort as well. (Jayy Valdovinos) - Related Data Home Medications Medication Instructions Recorded Confirmed ALPRAZolam [Xanax] 0.125 mg PO HS 04/09/18 04/09/18 Aspirin 81 mg PO DAILY@0700 04/09/18 04/09/18 Atenolol [Tenormin] 25 mg PO BID@0700,1900 04/09/18 04/09/18 Loratadine [Claritin] 10 mg PO DAILY@1400 04/09/18 04/09/18 Allergies Allergy/AdvReac Type Severity Reaction Status Date / Time formoterol [From Dulera] Allergy Swelling Verified 04/09/18 16:21 mometasone furoate Allergy Swelling Verified 04/09/18 16:21 [From Dulera] Sulfa (Sulfonamide Allergy Swelling Verified 04/09/18 16:21 Antibiotics) sulfamethoxazole Allergy Rash/Hives Verified 04/09/18 16:21 [From Bactrim] trimethoprim [From Bactrim] Allergy Rash/Hives Verified 04/09/18 16:21 amlodipine AdvReac Intermediate Rapid Verified 04/09/18 16:21 Heart Rate amoxicillin AdvReac Nausea Verified 04/09/18 16:21 codeine AdvReac Unknown Verified 04/09/18 16:21 lisinopril AdvReac Unknown Verified 04/09/18 16:21 omeprazole [From Prilosec] AdvReac Rash/Hives Verified 04/09/18 16:21 ramipril AdvReac Unknown Verified 04/09/18 16:21 steroids AdvReac Unknown Uncoded 04/09/18 15:05 Review of Systems ROS Other: All systems not noted in ROS Statement are negative. <Jayy Valdovinos - Last Filed: 04/09/18 17:06> ROS Other: All systems not noted in ROS Statement are negative. <Jayy Case - Last Filed: 04/09/18 17:35> ROS Statement: Those systems with pertinent positive or pertinent negative responses have been documented in the HPI. Past Medical History Past Medical History: Hypertension, Mitral Valve Prolapse (MVP) Additional Past Medical History / Comment(s): TIA possible middle ear issue 2015-vertigo, pt states recently tx for ear infection. History of Any Multi-Drug Resistant Organisms: None Reported Past Surgical History: Cholecystectomy, Hysterectomy, Tonsillectomy Additional Past Surgical History / Comment(s): colonoscopy Past Anesthesia/Blood Transfusion Reactions: No Reported Reaction Past Psychological History: Anxiety Smoking Status: Former smoker Past Alcohol Use History: None Reported Past Drug Use History: None Reported - Past Family History Father Family Medical History: Coronary Artery Disease (CAD), Diabetes Mellitus, Myocardial Infarction ([place]) Additional Family Medical History / Comment(s): Father had a pacemaker. He at the age of 76yrs from a [place]. Mother Family Medical History: GERD/Reflux, Hypertension <Jayy Valdovinos - Last Filed: 04/09/18 17:06> General Exam Limitations: no limitations <Jayy Valdovinos - Last Filed: 04/09/18 17:06> General appearance: alert, in no apparent distress Head exam: Present: atraumatic, normocephalic, normal inspection Eye exam: Present: normal appearance, PERRL, EOMI. Absent: scleral icterus, conjunctival injection, periorbital swelling ENT exam: Present: normal exam, mucous membranes moist Neck exam: Present: normal inspection. Absent: tenderness, meningismus, lymphadenopathy Respiratory exam: Present: normal lung sounds bilaterally. Absent: respiratory distress, wheezes, rales, rhonchi, stridor Cardiovascular Exam: Present: regular rate, normal rhythm, normal heart sounds. Absent: systolic murmur, diastolic murmur, rubs, gallop, clicks GI/Abdominal exam: Present: soft, normal bowel sounds. Absent: distended, tenderness, guarding, rebound, rigid Extremities exam: Present: normal inspection, full ROM, normal capillary refill. Absent: tenderness, pedal edema, joint swelling, calf tenderness Back exam: Present: normal inspection Neurological exam: Present: alert, oriented X3, CN II-XII intact Psychiatric exam: Present: normal affect, normal mood Skin exam: Present: warm, dry, intact, normal color. Absent: rash <Jayy Case - Last Filed: 04/09/18 17:35> - General Exam Comments Initial Comments: GENERAL: Patient is well-developed and well-nourished. Patient is nontoxic and well- hydrated and is in mild distress. ENT: Neck is soft and supple. No significant lymphadenopathy is noted. Oropharynx is clear. Moist mucous membranes. Neck has full range of motion without eliciting any pain. EYES: The sclera were anicteric and conjunctiva were pink and moist. Extraocular movements were intact and pupils were equal round and reactive to light. Eyelids were unremarkable. PULMONARY: Unlabored respirations. Good breath sounds bilaterally. No audible rales rhonchi or wheezing was noted. CARDIOVASCULAR: There is a regular rate and rhythm without any murmurs gallops or rubs. ABDOMEN: Soft and nontender with normal bowel sounds. No palpable organomegaly was noted. There is no palpable pulsatile mass. SKIN: Skin is clear with no lesions or rashes and otherwise unremarkable. NEUROLOGIC: Patient is alert and oriented x3. Cranial nerves II through XII are grossly intact. Motor and sensory are also intact. Normal speech, volume and content. Symmetrical smile. MUSCULOSKELETAL: Normal extremities with adequate strength and full range of motion. No lower extremity swelling or edema. No calf tenderness. LYMPHATICS: No significant lymphadenopathy is noted PSYCHIATRIC: Normal psychiatric evaluation. (Jayy Valdovinos) Vital Signs 04/09/18 04/09/18 04/09/18 15:02 15:19 15:20 Temperature 97.4 F L Pulse Rate 80 Respiratory 18 Rate Blood Pressure 203/118 O2 Sat by Pulse 98 99 99 Oximetry 04/09/18 04/09/18 04/09/18 15:30 15:40 15:47 Temperature Pulse Rate 69 70 72 Respiratory 18 18 18 Rate Blood Pressure 208/109 208/109 184/93 O2 Sat by Pulse 98 98 99 Oximetry 04/09/18 04/09/18 04/09/18 15:50 16:00 16:10 Temperature Pulse Rate 73 73 72 Respiratory 18 15 13 Rate Blood Pressure 184/93 184/93 150/93 O2 Sat by Pulse 99 98 96 Oximetry 04/09/18 04/09/18 04/09/18 16:20 16:30 17:00 Temperature Pulse Rate 71 66 Respiratory 16 18 Rate Blood Pressure 150/93 166/95 157/94 O2 Sat by Pulse 95 99 Oximetry Medical Decision Making - Lab Data Result diagrams: 04/09/18 15:30 04/09/18 15:30 <Jayy Valdovinos - Last Filed: 04/09/18 17:06> - Lab Data Result diagrams: 04/09/18 15:30 04/09/18 15:30 - Radiology Data Radiology results: report reviewed (CTA chest is negative for acute disease), image reviewed <Jayy Case - Last Filed: 04/09/18 17:35> - Medical Decision Making EKG shows normal sinus rhythm at 76 bpm SD interval 242 QRS is 82 QT interval 396 QTC is 445. Patient's EKG shows no ST segment elevation or depression or T wave abnormalities are noted. Dr. Ordonez will be taking over care of this patient at 5 PM (Jayy Valdovinos) 62 female the ER for evaluation of chest pain. CT chest negative for acute disease EKG and troponin are negative. Patient will be admitted for cardiac observation (Jayy Case) - Lab Data Lab Results 04/09/18 04/09/18 04/09/18 Range/Units 15:30 15:30 15:30 WBC 8.6 (3.8-10.6) k/uL RBC 5.43 H (3.80-5.40) m/uL Hgb 13.4 (11.4-16.0) gm/dL Hct 42.6 (34.0-46.0) % MCV 78.5 L (80.0-100.0) fL MCH 24.7 L (25.0-35.0) pg MCHC 31.4 (31.0-37.0) g/dL RDW 13.8 (11.5-15.5) % Plt Count 286 (150-450) k/uL Neutrophils % 64 % Lymphocytes % 26 % Monocytes % 5 % Eosinophils % 3 % Basophils % 1 % Neutrophils # 5.5 (1.3-7.7) k/uL Lymphocytes # 2.2 (1.0-4.8) k/uL Monocytes # 0.4 (0-1.0) k/uL Eosinophils # 0.3 (0-0.7) k/uL Basophils # 0.1 (0-0.2) k/uL PT (9.0-12.0) sec INR (<1.2) APTT (22.0-30.0) sec D-Dimer (<0.60) mg/L FEU Sodium 140 (137-145) mmol/L Potassium 4.3 (3.5-5.1) mmol/L Chloride 105 (98-107) mmol/L Carbon Dioxide 27 (22-30) mmol/L Anion Gap 8 mmol/L BUN 16 (7-17) mg/dL Creatinine 0.58 (0.52-1.04) mg/dL Est GFR (CKD-EPI)AfAm >90 (>60 ml/min/1.73 sqM) Est GFR (CKD-EPI)NonAf >90 (>60 ml/min/1.73 sqM) Glucose 88 (74-99) mg/dL Calcium 10.0 (8.4-10.2) mg/dL Magnesium 2.0 (1.6-2.3) mg/dL Total Bilirubin 0.9 (0.2-1.3) mg/dL AST 20 (14-36) U/L ALT 32 (9-52) U/L Alkaline Phosphatase 68 (38-126) U/L Total Creatine Kinase 55 (30-135) U/L CK-MB (CK-2) 0.8 (0.0-2.4) ng/mL CK-MB (CK-2) Rel Index 1.5 Troponin I <0.012 (0.000-0.034) ng/mL Total Protein 7.9 (6.3-8.2) g/dL Albumin 4.7 (3.5-5.0) g/dL 04/09/18 Range/Units 15:30 WBC (3.8-10.6) k/uL RBC (3.80-5.40) m/uL Hgb (11.4-16.0) gm/dL Hct (34.0-46.0) % MCV (80.0-100.0) fL MCH (25.0-35.0) pg MCHC (31.0-37.0) g/dL RDW (11.5-15.5) % Plt Count (150-450) k/uL Neutrophils % % Lymphocytes % % Monocytes % % Eosinophils % % Basophils % % Neutrophils # (1.3-7.7) k/uL Lymphocytes # (1.0-4.8) k/uL Monocytes # (0-1.0) k/uL Eosinophils # (0-0.7) k/uL Basophils # (0-0.2) k/uL PT 10.1 (9.0-12.0) sec INR 0.9 (<1.2) APTT 24.0 (22.0-30.0) sec D-Dimer 1.14 H (<0.60) mg/L FEU Sodium (137-145) mmol/L Potassium (3.5-5.1) mmol/L Chloride (98-107) mmol/L Carbon Dioxide (22-30) mmol/L Anion Gap mmol/L BUN (7-17) mg/dL Creatinine (0.52-1.04) mg/dL Est GFR (CKD-EPI)AfAm (>60 ml/min/1.73 sqM) Est GFR (CKD-EPI)NonAf (>60 ml/min/1.73 sqM) Glucose (74-99) mg/dL Calcium (8.4-10.2) mg/dL Magnesium (1.6-2.3) mg/dL Total Bilirubin (0.2-1.3) mg/dL AST (14-36) U/L ALT (9-52) U/L Alkaline Phosphatase (38-126) U/L Total Creatine Kinase (30-135) U/L CK-MB (CK-2) (0.0-2.4) ng/mL CK-MB (CK-2) Rel Index Troponin I (0.000-0.034) ng/mL Total Protein (6.3-8.2) g/dL Albumin (3.5-5.0) g/dL Disposition <Jayy Valdovinos - Last Filed: 04/09/18 17:06> Is patient prescribed a controlled substance at d/c from ED?: No <Jayy Case - Last Filed: 04/09/18 17:35> Clinical Impression: Chest pain Disposition: ADMITTED IP TO THIS HOSP Condition: Undetermined Instructions: Chest Pain (ED) Referrals: Chastity Cordova MD [Primary Care Provider] - 1-2 days
[2018-04-09 15:45] LABS: Basophils # (A) 0.1 k/uL (0-0.2); Basophils % (A) 1 %; Eosinophils # (A) 0.3 k/uL (0-0.7); Eosinophils % (A) 3 %; HCT 42.6 % (34.0-46.0); HGB 13.4 gm/dL (11.4-16.0); Lymphocytes # (A) 2.2 k/uL (1.0-4.8); Lymphocytes % (A) 26 %; MCH 24.7 pg (25.0-35.0); MCHC 31.4 g/dL (31.0-37.0); MCV 78.5 fL (80.0-100.0); Monocytes # (A) 0.4 k/uL (0-1.0); Monocytes % (A) 5 %; Neutrophils # (A) 5.5 k/uL (1.3-7.7); Neutrophils % (A) 64 %; Platelet Count 286 k/uL (150-450); RBC 5.43 m/uL (3.80-5.40); RDW 13.8 % (11.5-15.5); WBC 8.6 k/uL (3.8-10.6)
[2018-04-09 15:54] LABS: ALT 32 U/L (9-52); AST 20 U/L (14-36); Albumin 4.7 g/dL (3.5-5.0); Alkaline Phosphatase 68 U/L (38-126); Anion Gap 8 mmol/L; Blood Urea Nitrogen 16 mg/dL (7-17); Carbon Dioxide 27 mmol/L (22-30); Chloride 105 mmol/L (98-107); Glucose 88 mg/dL (74-99); Potassium 4.3 mmol/L (3.5-5.1); Sodium 140 mmol/L (137-145); Total Bilirubin 0.9 mg/dL (0.2-1.3); Total Protein 7.9 g/dL (6.3-8.2)
[2018-04-09 16:05] LABS: INR 0.9 (<1.2); Prothrombin Time 10.1 sec (9.0-12.0)
[2018-04-09 16:07] LABS: Creatine Kinase 55 U/L (30-135)
[2018-04-09 16:08] LABS: D-Dimer 1.14 mg/L FEU (<0.60)
[2018-04-09 16:18] LABS: Creatine Kinase MB 0.8 ng/mL (0.0-2.4); Troponin I <0.012 ng/mL (0.000-0.034)
--- NOTE | 2018-04-09 17:08 | CT ---
EXAMINATION TYPE: CT chest angio for PE DATE OF EXAM: 04/09/2018 COMPARISON: None HISTORY: Left sided chest pain. CT DLP: 370 mGycm Automated exposure control for dose reduction was used. CONTRAST: CT Chest for pulmonary embolism performed with with IV Contrast, patient injected with 100 mL of Isov ue 370. FINDINGS: There are 3-D post processed images. There is minimal subsegmental atelectasis in the lower lung [place]. There is no pericardial effusion. There is no pleural effusion. There is no mediastinal adenopathy. There is a 1 cm right bronchial lymph node. Thoracic aorta appears normal. There is no evidence of aneurysm or dissection. There is normal contra st opacification of the pulmonary arteries. There are no filling defects. There is mild spurring in t he thoracic spine. Upper abdominal soft tissues are unremarkable. IMPRESSION: No evidence of pulmonary embolism. Minimal scarring or subsegmental atelectasis at the lung bases.
[2018-04-09] MEDS ORDERED: HEPARIN SODIUM,PORCINE 5,000 UNIT/ML 1 ML VIAL IV PRN (18:30)
[2018-04-09] MEDS ORDERED: HEPARIN SOD,PORK IN 0.45% NACL 25,000 UNIT in 0.45% NACL 1 250ML.BAG IV SCH (18:30)
[2018-04-09] MEDS ORDERED: HEPARIN SODIUM,PORCINE 5,000 UNIT/ML 1 ML VIAL IV ONE (18:30)
[2018-04-09] MEDS ORDERED: NITROGLYCERIN SL TABS 0.4 MG TAB SUBLINGUAL PRN (18:30)
[2018-04-09 20:42] VITALS: BMI 36.6
[2018-04-09] MEDS ORDERED: ONDANSETRON 4 MG/2 ML VIAL IVP PRN (21:42)
[2018-04-09] MEDS: ALPRAZolam 0.25 MG TAB PO SCH (21:51)
[2018-04-09 22:39] LABS: Creatine Kinase 38 U/L (30-135)
[2018-04-09 22:53] LABS: Creatine Kinase MB 0.6 ng/mL (0.0-2.4); Troponin I <0.012 ng/mL (0.000-0.034)
[2018-04-10 03:29] LABS: Mean Platelet Volume 7.1; Platelet Count 244 k/uL (150-450)
[2018-04-10 03:43] LABS: Cholesterol 225 mg/dL (<200); HDL Cholesterol 48 mg/dL (40-60); LDL Cholesterol,Calculated 150 mg/dL (0-99); Triglycerides 137 mg/dL (<150)
[2018-04-10 03:46] LABS: Creatine Kinase 36 U/L (30-135)
[2018-04-10 04:00] LABS: Creatine Kinase MB 0.5 ng/mL (0.0-2.4); Troponin I <0.012 ng/mL (0.000-0.034)
[2018-04-10] MEDS ORDERED: ATENOLOL 25 MG TAB PO SCH (07:00)
[2018-04-10] MEDS ORDERED: ATORVASTATIN 80 MG TAB PO SCH (09:00)
--- NOTE | 2018-04-10 10:22 | P.CRDCN ---
History of Present Illness Consult date: 04/10/18 Consult reason: chest pain History of present illness: This patient is seen for evaluation of chest pain. Patient has been having intermittent chest discomfort for last 1 week. Ends the pain occurs with exertion and most of the time it occurs at rest and is in the left precordial and upper part of the chest several and many times it lasts only for a few minutes and has been checking her blood pressure and her blood pressure was elevated. Is no previous history of myocardial infarction isn't is moderately active physically patient does not smoke there is no family history of premature coronary artery disease patient's EKG in the emergency room were normal and troponins are negative so far patient's LDL is elevated Past Medical History Past Medical History: Hypertension, Mitral Valve Prolapse (MVP) Additional Past Medical History / Comment(s): TIA possible middle ear issue 2015-vertigo, pt states recently tx for ear infection. History of Any Multi-Drug Resistant Organisms: None Reported Past Surgical History: Cholecystectomy, Hysterectomy, Tonsillectomy Additional Past Surgical History / Comment(s): colonoscopy Past Anesthesia/Blood Transfusion Reactions: No Reported Reaction Smoking Status: Former smoker - Past Family History Father Family Medical History: Coronary Artery Disease (CAD), Diabetes Mellitus, Myocardial Infarction ([place]) Additional Family Medical History / Comment(s): Father had a pacemaker. He at the age of 76yrs from a [place]. Mother Family Medical History: GERD/Reflux, Hypertension Medications and Allergies Home Medications Medication Instructions Recorded Confirmed Type ALPRAZolam [Xanax] 0.125 mg PO HS 04/09/18 04/09/18 History Aspirin 81 mg PO DAILY@0700 04/09/18 04/09/18 History Atenolol [Tenormin] 25 mg PO BID@0700,1900 04/09/18 04/09/18 History Loratadine [Claritin] 10 mg PO DAILY@1400 04/09/18 04/09/18 History Allergies Allergy/AdvReac Type Severity Reaction Status Date / Time formoterol [From Dulera] Allergy Swelling Verified 04/09/18 20:21 mometasone furoate Allergy Swelling Verified 04/09/18 20:21 [From Dulera] Sulfa (Sulfonamide Allergy Swelling Verified 04/09/18 20:21 Antibiotics) sulfamethoxazole Allergy Rash/Hives Verified 04/09/18 20:21 [From Bactrim] trimethoprim [From Bactrim] Allergy Rash/Hives Verified 04/09/18 20:21 amlodipine AdvReac Intermediate Rapid Verified 04/09/18 20:21 Heart Rate amoxicillin AdvReac Nausea Verified 04/09/18 20:21 codeine AdvReac Unknown Verified 04/09/18 20:21 lisinopril AdvReac Unknown Verified 04/09/18 20:21 omeprazole [From Prilosec] AdvReac Rash/Hives Verified 04/09/18 20:21 ramipril AdvReac Unknown Verified 04/09/18 20:21 steroids AdvReac Unknown Uncoded 04/09/18 20:21 Physical Exam Vitals: Vital Signs Temp Pulse Pulse Resp BP BP Pulse Ox 04/10/18 08:00 97.8 F 62 18 155/85 96 04/10/18 04:00 97.5 F L 70 18 134/80 95 04/10/18 03:28 18 04/09/18 23:08 18 04/09/18 23:07 97.8 F 65 18 154/88 96 04/09/18 20:00 97.6 F 70 18 170/96 96 04/09/18 18:56 70 16 143/73 95 04/09/18 17:00 66 18 157/94 99 04/09/18 16:30 166/95 04/09/18 16:20 71 16 150/93 95 04/09/18 16:10 72 13 150/93 96 04/09/18 16:00 73 15 184/93 98 04/09/18 15:50 73 18 184/93 99 04/09/18 15:47 72 18 184/93 99 04/09/18 15:40 70 18 208/109 98 04/09/18 15:30 69 18 208/109 98 04/09/18 15:20 99 04/09/18 15:19 99 04/09/18 15:02 97.4 F L 80 18 203/118 98 Intake and Output 04/09/18 04/10/18 04/10/18 22:59 06:59 14:59 Intake Total 63.833 Balance 63.833 Intake: Intake, IV Titration 63.833 Amount Heparin Sod,Pork in 0.45% 63.833 NaCl 25,000 unit In 0.45 % NaCl 1 250ml.bag @ 11. 03 UNITS/KG/HR 10 mls/hr IV .Q24H [facility] Rx#: [id number] Other: # Voids 1 1 Weight 90.7 kg Patient's vital signs are reviewed. Patient's vital signs are reviewed. The patient is alert awake and in no acute distress. HEENT negative. Neck-supple no increase in JVP noted no carotid bruits noted. Chest-symmetrical. Heart-first and second heart sounds are normal. No S3 or S4 is noted. No significant murmurs are noted. Lungs bilateral good at entry is noted. No rales or rhonchi are noted Abdomen-soft. Liver and spleen are not enlarged. The bowel sounds are normal. No tenderness noted Extremities-peripheral pulses since are 2+. No significant leg edema noted. Neuro-no significant gross abnormality noted. Results 04/10/18 02:58 04/09/18 15:30 Cardiac Enzymes 04/09/18 04/09/18 04/09/18 Range/Units 15:30 15:30 21:57 AST 20 (14-36) U/L CK-MB (CK-2) 0.8 0.6 (0.0-2.4) ng/mL Troponin I <0.012 <0.012 (0.000-0.034) ng/mL 04/10/18 Range/Units 02:58 AST (14-36) U/L CK-MB (CK-2) 0.5 (0.0-2.4) ng/mL Troponin I <0.012 (0.000-0.034) ng/mL Coagulation 04/09/18 04/10/18 04/10/18 Range/Units 15:30 00:33 08:00 PT 10.1 (9.0-12.0) sec APTT 24.0 44.3 H 43.6 H (22.0-30.0) sec Lipids 04/10/18 Range/Units 02:58 Triglycerides 137 (<150) mg/dL Cholesterol 225 H (<200) mg/dL HDL Cholesterol 48 (40-60) mg/dL CBC 04/09/18 04/10/18 Range/Units 15:30 02:58 WBC 8.6 (3.8-10.6) k/uL RBC 5.43 H (3.80-5.40) m/uL Hgb 13.4 (11.4-16.0) gm/dL Hct 42.6 (34.0-46.0) % Plt Count 286 244 (150-450) k/uL Comprehensive Metabolic Panel 04/09/18 Range/Units 15:30 Sodium 140 (137-145) mmol/L Potassium 4.3 (3.5-5.1) mmol/L Chloride 105 (98-107) mmol/L Carbon Dioxide 27 (22-30) mmol/L BUN 16 (7-17) mg/dL Creatinine 0.58 (0.52-1.04) mg/dL Glucose 88 (74-99) mg/dL Calcium 10.0 (8.4-10.2) mg/dL AST 20 (14-36) U/L ALT 32 (9-52) U/L Alkaline Phosphatase 68 (38-126) U/L Total Protein 7.9 (6.3-8.2) g/dL Albumin 4.7 (3.5-5.0) g/dL Current Medications Generic Name Dose Route Start Last Admin Trade Name Freq PRN Reason Stop Dose Admin Alprazolam 0.125 mg 04/09/18 21:45 04/09/18 21:51 Xanax PO 0.125 mg HS [facility] Administration Aspirin 325 mg 04/10/18 09:00 Aspirin PO DAILY [facility] Atorvastatin Calcium 80 mg 04/10/18 09:00 Lipitor PO DAILY [facility] Carvedilol 12.5 mg 04/10/18 17:30 Coreg PO BID-W/MEALS [facility] Heparin Sodium (Porcine) 0 unit 04/09/18 18:30 Heparin IV Q6HR PRN Low PTT Protocol Loratadine 10 mg 04/10/18 14:00 Claritin PO DAILY@1400 [facility] Losartan Potassium 50 mg 04/10/18 10:30 Cozaar PO DAILY [facility] Nitroglycerin 0.4 mg 04/09/18 18:30 Nitrostat SUBLINGUAL Q5M PRN Chest Pain Ondansetron HCl 4 mg 04/09/18 21:42 Zofran IVP Q6HR PRN Nausea And Vomiting Intake and Output 04/09/18 04/10/18 04/10/18 22:59 06:59 14:59 Intake Total 63.833 Balance 63.833 Intake: Intake, IV Titration 63.833 Amount Heparin Sod,Pork in 0.45% 63.833 NaCl 25,000 unit In 0.45 % NaCl 1 250ml.bag @ 11. 03 UNITS/KG/HR 10 mls/hr IV .Q24H [facility] Rx#: [id number] Other: # Voids 1 1 Weight 90.7 kg 04/10/18 02:58 04/09/18 15:30 EKG Interpretations (text) EKG does not show any acute ischemic changes. Assessment and Plan Assessment: This patient's chest pains are suggestive of atypical angina. EKG and cardiac enzymes are normal there is no evidence of ACS. Computed tomography scan does not show any evidence of pulmonary embolism and no significant coronary artery calcification was noted. We will start the patient on losartan 50 mg daily DC atenolol Start Coreg 12.5 mg twice a day The patient's blood pressure is under control patient can be discharged home and we will evaluate the patient with a stress test as an outpatient
[2018-04-10] MEDS ORDERED: LOSARTAN 50 MG TAB PO SCH (10:30)
[2018-04-10] MEDS: ASPIRIN 325 MG TAB PO SCH (12:15)
--- NOTE | 2018-04-10 14:40 | P.HPIM ---
History of Present Illness H&P Date: 04/10/18 Chief Complaint: Chest pain Mi Hale is a 62-year-old female patient of Dr. Cordova who presented to [facility] emergency room with a chief complaint of chest pain. Patient stated that for the last week she has been having episodes of chest pain on and off starting last Thursday each episode lasting about 10 minutes patient describes a pressure sensation in the left side of the chest radiating to the left shoulder accompanied with shortness of breath there was no diaphoresis no nausea or vomiting patient also noticed that her blood pressure was elevated in the last few days. Patient has a known history of hypertension she takes atenolol 25 mg twice daily at home, she also has known history of anxiety disorder, otherwise she denies any significant past medical history, she states that her blood pressure has been well controlled until recently, she stated that she has gained significant weight in the last 4 years about 40 pounds, she used to smoke she quit 24 years ago she does not drink alcohol there is no significant family history of coronary artery disease. Past Medical History Past Medical History: Hypertension, Mitral Valve Prolapse (MVP) Additional Past Medical History / Comment(s): TIA possible middle ear issue 2015-vertigo, pt states recently tx for ear infection. History of Any Multi-Drug Resistant Organisms: None Reported Past Surgical History: Cholecystectomy, Hysterectomy, Tonsillectomy Additional Past Surgical History / Comment(s): colonoscopy Past Anesthesia/Blood Transfusion Reactions: No Reported Reaction Smoking Status: Former smoker - Past Family History Father Family Medical History: Coronary Artery Disease (CAD), Diabetes Mellitus, Myocardial Infarction ([place]) Additional Family Medical History / Comment(s): Father had a pacemaker. He at the age of 76yrs from a [facility]. Mother Family Medical History: GERD/Reflux, Hypertension Medications and Allergies Home Medications Medication Instructions Recorded Confirmed Type ALPRAZolam [Xanax] 0.125 mg PO HS 04/09/18 04/09/18 History Aspirin 81 mg PO DAILY@0700 04/09/18 04/09/18 History Atenolol [Tenormin] 25 mg PO BID@0700,1900 04/09/18 04/09/18 History Loratadine [Claritin] 10 mg PO DAILY@1400 04/09/18 04/09/18 History Allergies Allergy/AdvReac Type Severity Reaction Status Date / Time formoterol [From Dulera] Allergy Swelling Verified 04/09/18 20:21 mometasone furoate Allergy Swelling Verified 04/09/18 20:21 [From Dulera] Sulfa (Sulfonamide Allergy Swelling Verified 04/09/18 20:21 Antibiotics) sulfamethoxazole Allergy Rash/Hives Verified 04/09/18 20:21 [From Bactrim] trimethoprim [From Bactrim] Allergy Rash/Hives Verified 04/09/18 20:21 amlodipine AdvReac Intermediate Rapid Verified 04/09/18 20:21 Heart Rate amoxicillin AdvReac Nausea Verified 04/09/18 20:21 codeine AdvReac Unknown Verified 04/09/18 20:21 lisinopril AdvReac Unknown Verified 04/09/18 20:21 omeprazole [From Prilosec] AdvReac Rash/Hives Verified 04/09/18 20:21 ramipril AdvReac Unknown Verified 04/09/18 20:21 steroids AdvReac Unknown Uncoded 04/09/18 20:21 Physical Exam Vitals: Vital Signs Temp Pulse Pulse Resp BP BP Pulse Ox 04/10/18 12:00 97.5 F L 70 16 157/94 97 04/10/18 08:00 97.8 F 62 18 155/85 96 04/10/18 04:00 97.5 F L 70 18 134/80 95 04/10/18 03:28 18 04/09/18 23:08 18 04/09/18 23:07 97.8 F 65 18 154/88 96 04/09/18 20:00 97.6 F 70 18 170/96 96 04/09/18 18:56 70 16 143/73 95 04/09/18 17:00 66 18 157/94 99 04/09/18 16:30 166/95 04/09/18 16:20 71 16 150/93 95 04/09/18 16:10 72 13 150/93 96 04/09/18 16:00 73 15 184/93 98 04/09/18 15:50 73 18 184/93 99 04/09/18 15:47 72 18 184/93 99 04/09/18 15:40 70 18 208/109 98 04/09/18 15:30 69 18 208/109 98 04/09/18 15:20 99 04/09/18 15:19 99 04/09/18 15:02 97.4 F L 80 18 203/118 98 Intake and Output 04/09/18 04/10/18 04/10/18 22:59 06:59 14:59 Intake Total 63.833 Balance 63.833 Intake: Intake, IV Titration 63.833 Amount Heparin Sod,Pork in 0.45% 63.833 NaCl 25,000 unit In 0.45 % NaCl 1 250ml.bag @ 11. 03 UNITS/KG/HR 10 mls/hr IV .Q24H CARRIE Rx#: [id number] Other: # Voids 1 1 Weight 90.7 kg HEENT head normocephalic and atraumatic Neck is supple no JVD no goiter no lymphadenopathy Chest exam reveals a few scattered rhonchi no wheezing Cardiac exam reveals regular heart sounds S1 and S2 no gallops no murmurs Abdomen is soft nontender no organomegaly with normal bowel sounds Extremity exam reveals no edema no cyanosis or clubbing Neurological examination reveals no gross focal deficit Results CBC & Chem 7: 04/10/18 02:58 04/09/18 15:30 Labs: Abnormal Lab Results - Last 24 Hours (Table) 04/09/18 04/09/18 04/10/18 Range/Units 15:30 15:30 00:33 RBC 5.43 H (3.80-5.40) m/uL MCV 78.5 L (80.0-100.0) fL MCH 24.7 L (25.0-35.0) pg APTT 44.3 H (22.0-30.0) sec D-Dimer 1.14 H (<0.60) mg/L FEU Cholesterol (<200) mg/dL LDL Cholesterol, Calc (0-99) mg/dL 04/10/18 04/10/18 Range/Units 02:58 08:00 RBC (3.80-5.40) m/uL MCV (80.0-100.0) fL MCH (25.0-35.0) pg APTT 43.6 H (22.0-30.0) sec D-Dimer (<0.60) mg/L FEU Cholesterol 225 H (<200) mg/dL LDL Cholesterol, Calc 150 H (0-99) mg/dL Thrombosis Risk Factor Assmnt - Choose All That Apply Each Risk Factor Represents 2 Points: Age 61-74 years Thrombosis Risk Factor Assessment Total Risk Factor Score: 2 Thrombosis Risk Factor Assessment Level: Low Risk Assessment and Plan Plan: #1 episodes of chest pain over the last week, patient is admitted to 24-hour observation serial EKGs and cardiac enzymes are ordered #2 hypertensive emergency on presentation, patient was seen by cardiology atenolol was discontinued and patient was started on Coreg she was also started on losartan will monitor blood pressure to assess control patient has multiple medications ALLERGIES. #3 hyperlipidemia cholesterol 225 and LDL 150 patient was started on Lipitor 40 mg by mouth daily #4 elevated d-dimer at 1.14 computed tomography scan of the chest was done and did not reveal any evidence of pulmonary embolism At this time will continue to monitor patient and adjust blood pressure medication as needed Patient was evaluated by cardiology she will be scheduled for a stress test as outpatient
[2018-04-10] MEDS ORDERED: LOSARTAN 50 MG TAB PO STA (15:09)
[2018-04-10] MEDS: ALPRAZolam 0.25 MG TAB PO PRN (15:17)
[2018-04-10] MEDS: CARVEDILOL 12.5 MG TAB PO SCH (17:19)
[2018-04-10] MEDS: LORATADINE 10 MG TAB PO SCH (17:19)
[2018-04-10] MEDS: ALPRAZolam 0.25 MG TAB PO SCH (20:10)
[2018-04-10] MEDS: ATORVASTATIN 40 MG TAB PO SCH (20:10)
[2018-04-11] MEDS: ALPRAZolam 0.25 MG TAB PO PRN ×2 (07:23→14:09)
[2018-04-11 07:40] LABS: Mean Platelet Volume 7.1; Platelet Count 238 k/uL (150-450)
[2018-04-11] MEDS: CARVEDILOL 12.5 MG TAB PO SCH ×2 (08:02→17:42)
[2018-04-11] MEDS: ASPIRIN 325 MG TAB PO SCH (08:02)
[2018-04-11] MEDS ORDERED: LOSARTAN 50 MG TAB PO SCH (09:00)
--- NOTE | 2018-04-11 11:09 | PN ---
PROGRESS NOTE HISTORY: This patient is admitted with tightness in the chest and uncontrolled blood pressure. She is feeling better. Denies any shortness of breath. The patient is currently taking losartan 100 mg daily and Coreg 12.5 mg b.i.d. PHYSICAL EXAM: The first and second heart sounds are heard. Lungs are clear to auscultation and percussion. ASSESSMENT AND PLAN RECOMMENDATIONS: The patient can be discharged home on the current medications. I will re-evaluate her in 2 to 3 weeks and subsequently patient will be evaluated with a stress test as an outpatient. SHLOMO / ANGIEN: [id number] /
[2018-04-11] MEDS ORDERED: ACETAMINOPHEN TAB 500 MG TAB PO PRN (11:12)
[2018-04-11] MEDS: LORATADINE 10 MG TAB PO SCH (13:38)
--- NOTE | 2018-04-11 14:32 | P.PN ---
Subjective Progress Note Date: 04/11/18 Mi Hale is a 62-year-old female patient of Dr. Cordova who presented to [facility] emergency room with a chief complaint of chest pain. Patient stated that for the last week she has been having episodes of chest pain on and off starting last Thursday each episode lasting about 10 minutes patient describes a pressure sensation in the left side of the chest radiating to the left shoulder accompanied with shortness of breath there was no diaphoresis no nausea or vomiting patient also noticed that her blood pressure was elevated in the last few days. Patient has a known history of hypertension she takes atenolol 25 mg twice daily at home, she also has known history of anxiety disorder, otherwise she denies any significant past medical history, she states that her blood pressure has been well controlled until recently, she stated that she has gained significant weight in the last 4 years about 40 pounds, she used to smoke she quit 24 years ago she does not drink alcohol there is no significant family history of coronary artery disease. On 04/11/2018 patient was seen and examined in the observation unit she is alert and oriented 3 in no apparent distress she is complaining of headache dizziness and lightheadedness, blood pressure is still elevated at 180/86 patient is not feeling well and is not ready to go home at this point, otherwise she denies any complaints there is no fever or chills no headache or dizziness no chest pain no shortness of breath no cough no nausea or vomiting no abdominal pain and no urinary symptoms. Echocardiogram done and results are still pending. Objective - Vital Signs Vital signs: Vital Signs Temp 97.5 F L 04/11/18 12:00 Pulse 63 04/11/18 12:00 Resp 18 04/11/18 12:00 BP 180/86 04/11/18 13:00 Pulse Ox 98 04/11/18 12:00 Intake & Output 04/10/18 04/11/18 04/11/18 18:59 06:59 18:59 Intake Total 260 Balance 260 Intake: Oral 260 Other: Voiding Method Toilet Toilet Toilet # Voids 1 1 - Exam HEENT head normocephalic and atraumatic Neck is supple no JVD no goiter no lymphadenopathy Chest exam reveals a few scattered rhonchi no wheezing Cardiac exam reveals regular heart sounds S1 and S2 no gallops no murmurs Abdomen is soft nontender no organomegaly with normal bowel sounds Extremity exam reveals no edema no cyanosis or clubbing Neurological examination reveals no gross focal deficit - Labs CBC & Chem 7: 04/11/18 06:53 04/09/18 15:30 Assessment and Plan Plan: #1 episodes of chest pain over the last week, patient is admitted to 24-hour observation serial EKGs and cardiac enzymes are ordered, no evidence of acute coronary syndrome, IV heparin discontinue, patient was evaluated by cardiology no intervention recommended at this time. #2 hypertensive emergency on presentation, patient was seen by cardiology atenolol was discontinued and patient was started on Coreg she was also started on losartan will monitor blood pressure to assess control patient has multiple medications ALLERGIES. Blood pressure is still elevated at 180/86 patient is not feeling well and having headache and dizziness nurse was instructed to was spread out medications and give Coreg in the morning and evening and give losartan at lunchtime will continue to monitor for 1 more day to assess blood pressure control and possible side effect to medications. Echocardiogram was done and results are still pending #3 hyperlipidemia cholesterol 225 and LDL 150 patient was started on Lipitor 40 mg by mouth daily #4 elevated d-dimer at 1.14 computed tomography scan of the chest was done and did not reveal any evidence of pulmonary embolism At this time will continue to monitor patient and adjust blood pressure medication as needed Patient was evaluated by cardiology she will be scheduled for a stress test as outpatient
--- NOTE | 2018-04-11 17:07 | ECHOF ---
Referral Reason:chest pain MEASUREMENTS -------- HEIGHT: 157.5 cm WEIGHT: 90.3 kg BP: 155/85 RVIDd: 3.1 cm (< 3.3) IVSd: 1.0 cm (0.6 - 1.1) LVIDd: 4.5 cm (3.9 - 5.3) LVPWd: 1.2 cm (0.6 - 1.1) IVSs: 1.6 cm LVIDs: 3.0 cm LVPWs: 1.6 cm LA Diam: 4.0 cm (2.7 - 3.8) LAESV Index (A-L): 22.68 ml/m Ao Diam: 3.3 cm (2.0 - 3.7) AV Cusp: 2.1 cm (1.5 - 2.6) EPSS: 1.0 cm MV E Prosper: 0.79 m/s MV DecT: 180 ms MV A Prosper: 0.69 m/s MV E/A Ratio: 1.14 RAP: 5.00 mmHg RVSP: 39.88 mmHg MV EF SLOPE: 89.34 mm/s (70 - 150) MV EXCURSION: 1.64 cm (> 18.000) FINDINGS -------- Sinus rhythm. This was a technically adequate study. The left ventricular size is normal. There is borderline concentric left ventricular hypertrophy. Overall left ventricular systolic function is normal with, an EF between 60 - 65 %. The right ventricle is normal in size. Normal LA size by volume 22+/-6 ml/m2. The right atrium is normal in size. The aortic valve is trileaflet and appears structurally normal. The mitral valve is normal. Mild tricuspid regurgitation present. There is mild pulmonary hypertension. The right ventricular systolic pressure, as measured by Doppler, is 39.88mmHg. There is no pulmonic regurgitation present. The aortic root size is normal. Normal inferior vena cava with normal inspiratory collapse consistent with estimated right atrial pre ssure of 5 mmHg. There is no pericardial effusion. CONCLUSIONS -------- 1. Sinus rhythm. 2. This was a technically adequate study. 3. The left ventricular size is normal. 4. There is borderline concentric left ventricular hypertrophy. 5. Overall left ventricular systolic function is normal with, an EF between 60 - 65 %. 6. The right ventricle is normal in size. 7. Normal LA size by volume 22+/-6 ml/m2. 8. The right atrium is normal in size. 9. The aortic valve is trileaflet and appears structurally normal. 10. The mitral valve is normal. 11. Mild tricuspid regurgitation present. 12. There is mild pulmonary hypertension. 13. The right ventricular systolic pressure, as measured by Doppler, is 39.88mmHg. 14. There is no pulmonic regurgitation present. 15. The aortic root size is normal. 16. Normal inferior vena cava with normal inspiratory collapse consistent with estimated right atrial pressure of 5 mmHg. 17. There is no pericardial effusion. OBSTETRICS NURSE: REAGAN Williamson
[2018-04-11] MEDS: ATORVASTATIN 40 MG TAB PO SCH (19:52)
[2018-04-11] MEDS: ALPRAZolam 0.25 MG TAB PO SCH (20:19)
[2018-04-12 07:43] LABS: Basophils % (A) 1 %; Eosinophils # (A) 0.4 k/uL (0-0.7); Eosinophils % (A) 6 %; HCT 40.6 % (34.0-46.0); HGB 12.5 gm/dL (11.4-16.0); Lymphocytes # (A) 1.9 k/uL (1.0-4.8); Lymphocytes % (A) 29 %; MCH 24.4 pg (25.0-35.0); MCHC 30.7 g/dL (31.0-37.0); MCV 79.7 fL (80.0-100.0); Mean Platelet Volume 7.1; Monocytes # (A) 0.3 k/uL (0-1.0); Monocytes % (A) 5 %; Neutrophils # (A) 3.8 k/uL (1.3-7.7); Neutrophils % (A) 58 %; Platelet Count 251 k/uL (150-450); RDW 13.7 % (11.5-15.5); WBC 6.5 k/uL (3.8-10.6)
[2018-04-12 07:50] LABS: ALT 22 U/L (9-52); AST 14 U/L (14-36); Albumin 4.3 g/dL (3.5-5.0); Alkaline Phosphatase 53 U/L (38-126); Anion Gap 9 mmol/L; Blood Urea Nitrogen 14 mg/dL (7-17); Calcium 9.6 mg/dL (8.4-10.2); Carbon Dioxide 28 mmol/L (22-30); Chloride 105 mmol/L (98-107); Glucose 90 mg/dL (74-99); Potassium 4.6 mmol/L (3.5-5.1); Sodium 142 mmol/L (137-145); Total Bilirubin 1.1 mg/dL (0.2-1.3); Total Protein 7.4 g/dL (6.3-8.2)
[2018-04-12 07:53] VITALS: RESP 18
[2018-04-12] MEDS: ASPIRIN 325 MG TAB PO SCH (08:39)
[2018-04-12] MEDS: CARVEDILOL 12.5 MG TAB PO SCH (08:40)
[2018-04-12] MEDS: ALPRAZolam 0.25 MG TAB PO PRN ×2 (08:45→14:57)
[2018-04-12 11:46] VITALS: PULSE 61; TEMP 97.4
[2018-04-12] MEDS ORDERED: LOSARTAN 50 MG TAB PO SCH (12:00)
[2018-04-12 14:22] VITALS: BP 162/89
--- NOTE | 2018-04-12 14:52 | P.DS ---
Providers Date of admission: 04/09/18 18:31 Expected date of discharge: 04/12/18 Attending physician: Rylee Rosario Consults: 04/09/18 18:30 Consult Physician Urgent Consulting Provider: Shiva Terry Consult Reason/Comments: cp Do you want consulting provider notified?: Yes Primary care physician: Chastity Cordova [facility] Hospital Course: Discharge Diagnosis #1 episodes of chest pain over the last week, patient is admitted to 24-hour observation serial EKGs and cardiac enzymes are ordered, no evidence of acute coronary syndrome, IV heparin discontinue, patient was evaluated by cardiology no intervention recommended at this time. The echo completed showing an EF 60- 65%. of Patient to follow-up outpatient with cardiology services for outpatient stress test in 2-3 weeks #2 hypertensive emergency on presentation, patient was seen by cardiology atenolol was discontinued and patient was started on Coreg she was also started on losartan will monitor blood pressure to assess control patient has multiple medications ALLERGIES. Blood pressure is still elevated at 180/86 patient is not feeling well and having headache and dizziness nurse was instructed to was spread out medications and give Coreg in the morning and evening and give losartan at lunchtime will continue to monitor for 1 more day to assess blood pressure control and possible side effect to medications. Blood pressure has improved. Patient does feel she has had a reaction to the losartan. Losartan will be discontinued. Coreg will be increased to 25 twice a day patient advised to keep blood pressure log to follow-up with her primary care provider in 2 days #3 hyperlipidemia cholesterol 225 and LDL 150 patient was started on Lipitor 40 mg by mouth daily #4 elevated d-dimer at 1.14 computed tomography scan of the chest was done and did not reveal any evidence of pulmonary embolism At this time will continue to monitor patient and adjust blood pressure medication as needed Patient was evaluated by cardiology she will be scheduled for a stress test as outpatient Hospital Course Mi Hale is a 62-year-old female patient of Dr. Cordova who presented to [facility] emergency room with a chief complaint of chest pain. Patient stated that for the last week she has been having episodes of chest pain on and off starting last Thursday each episode lasting about 10 minutes patient describes a pressure sensation in the left side of the chest radiating to the left shoulder accompanied with shortness of breath there was no diaphoresis no nausea or vomiting patient also noticed that her blood pressure was elevated in the last few days. Patient has a known history of hypertension she takes atenolol 25 mg twice daily at home, she also has known history of anxiety disorder, otherwise she denies any significant past medical history, she states that her blood pressure has been well controlled until recently, she stated that she has gained significant weight in the last 4 years about 40 pounds, she used to smoke she quit 24 years ago she does not drink alcohol there is no significant family history of coronary artery disease. On 04/11/2018 patient was seen and examined in the observation unit she is alert and oriented 3 in no apparent distress she is complaining of headache dizziness and lightheadedness, blood pressure is still elevated at 180/86 patient is not feeling well and is not ready to go home at this point, otherwise she denies any complaints there is no fever or chills no headache or dizziness no chest pain no shortness of breath no cough no nausea or vomiting no abdominal pain and no urinary symptoms. Echocardiogram done and results are still pending. On 04/12/2018 patient is alert and oriented 3. Patient's blood pressure has improved. Patient does feel like she did have apotential reaction after she got her afternoon dose of losartan. At this time will DC losartan and discharge patient on increased dose of Coreg 25 mg twice a day. Patient advised to keep blood pressure log and follow-up closely with PCP in 2 days. Patient also to follow up with cardiology services in 2-3 weeks for outpatient stress test. At this time patient denies chest pain or shortness of breath. Patient denies nausea vomiting or diarrhea. Patient denies any urinary burning or frequency. currently at bedside. All questions answered. Patient was given an in-depth explanation on medications and recommend follow-up plan. I performed an examination of the patient and discussed their management with the Nurse Practitioner. I have reviewed the Nurse Practitioner's notes and agree with the documented findings and plan of care Patient Condition at Discharge: Stable Plan - Discharge Summary New Discharge Prescriptions: New Atorvastatin [Lipitor] 40 mg PO HS #30 tab Carvedilol [Coreg] 25 mg PO BID-W/MEALS #60 tablet Continue Loratadine [Claritin] 10 mg PO DAILY@1400 ALPRAZolam [Xanax] 0.125 mg PO HS Aspirin 81 mg PO DAILY@0700 Discontinued Atenolol [Tenormin] 25 mg PO BID@0700,1900 Discharge Medication List ALPRAZolam [Xanax] 0.125 mg PO HS 04/09/18 [History] Aspirin 81 mg PO DAILY@0700 04/09/18 [History] Loratadine [Claritin] 10 mg PO DAILY@1400 04/09/18 [History] Atorvastatin [Lipitor] 40 mg PO HS #30 tab 04/12/18 [Rx] Carvedilol [Coreg] 25 mg PO BID-W/MEALS #60 tablet 04/12/18 [Rx] Follow up Appointment(s)/Referral(s): Chastity Cordova MD [Primary Care Provider] - 1-2 days Barak Lange MD [STAFF PHYSICIAN] - 1 Week Patient Instructions/Handouts: Chest Pain (ED) Discharge Disposition: HOME SELF-CARE
== END 2018-04-12 16:02 | disposition home or self-care (01) ==
LOC: EC 14:59 → 1SOBS 18:31
PROVIDERS: ADMIT Internal Medicine; ATTEND Internal Medicine
DX: R07.89 Other chest pain (principal); R07.2 Precordial pain; I10 Essential (primary) hypertension; I16.1 Hypertensive emergency; E78.5 Hyperlipidemia, unspecified; R79.89 Other specified abnormal findings of blood chemistry; R06.02 Shortness of breath; M54.89 Other dorsalgia; F41.9 Anxiety disorder, unspecified; I34.1 Nonrheumatic mitral (valve) prolapse; Z79.82 Long term (current) use of aspirin; Z79.899 Other long term (current) drug therapy; Z88.5 Allergy status to narcotic agent; Z88.0 Allergy status to penicillin; Z88.2 Allergy status to sulfonamides; Z88.8 Allergy status to other drugs, medicaments and biological substances; Z86.73 Personal history of transient ischemic attack (TIA), and cerebral infarction without residual deficits; Z90.49 Acquired absence of other specified parts of digestive tract; Z87.891 Personal history of nicotine dependence; Z83.3 Family history of diabetes mellitus; Z83.79 Family history of other diseases of the digestive system
CPT/HCPCS: 96366 ×2; 96376; 96365; 96375; 99285; 36415; 93306; 85379; 80061; 80053 ×2; 82550 ×2; 82553 ×2; 83735; 84484 ×2; 85025 ×2; 85049 ×2; 85610; 85730 ×2; 71275; G0378 ×4; J2060; J1644 ×2; Q9967

== ENCOUNTER → 2019-09-19 | Outpatient (CLI) | payer BC ==
--- NOTE | 2019-09-20 12:01 | MM ---
Reason for exam: screening (asymptomatic). Last mammogram was performed 2 years and 4 months ago. History: Patient is postmenopausal. Physical Findings: A clinical breast exam by your physician is recommended on an annual basis and results should be correlated with mammographic findings. MG Screening Mammo w CAD Bilateral CC and MLO view(s) were taken. Prior study comparison: May 20, 2017, bilateral MG screening mammo w CAD. November 11, 2013, mammogram, performed at [facility]. There are scattered fibroglandular densities. There is no discrete abnormality. No significant changes when compared with prior studies. ASSESSMENT: Benign, BI-RAD 2 RECOMMENDATION: Routine screening mammogram of both breasts in 1 year.
== END | disposition home or self-care (01) ==
LOC: RADMAMWWP 08:50
PROVIDERS: ATTEND Family Medicine
DX: Z12.31 Encounter for screening mammogram for malignant neoplasm of breast (principal)
CPT/HCPCS: 77067

== ENCOUNTER → 2020-09-11 | Outpatient (CLI) | payer SELFPAY ==
--- NOTE | 2020-09-11 13:37 | XR ---
EXAMINATION TYPE: XR facial bones complete DATE OF EXAM: 09/11/2020 COMPARISON: NONE HISTORY: 64-year-old female W1 9.6XX. Fall on sidewalk 3 weeks ago with pain and swelling. TECHNIQUE: 4 views FINDINGS: No depressed range related nasal bone fracture is seen. No nawaf asymmetric opacification of the para nasal sinuses. Orbits appear relatively symmetric. Slight rightward nasal septal deviation. The jovani ble appears intact. Orbits relatively symmetric. Dental amalgam is present. Scattered mild periodonta l disease. A larger dental caries involves one of the patient's maxillary molars. IMPRESSION: Slight rightward nasal septal deviation. No facial bone fracture is radiographically apparent. If per sistent concern, CT can be considered.
== END | disposition home or self-care (01) ==
LOC: RADXRMAIN 11:00
PROVIDERS: ATTEND Nurse Practitioner Family
DX: J34.2 Deviated nasal septum (principal)
CPT/HCPCS: 70150

== ENCOUNTER 2021-09-16 08:24 | Inpatient (IN) | payer OTHER ==
[2021-09-16] MEDS ORDERED: SODIUM CHLORIDE 0.9% 500 ML 500 ML IV STA (08:48)
[2021-09-16] MEDS ORDERED: Alteplase PER PHARMACY Stroke 1 EACH MISC MISCELLANE PRN (08:48)
[2021-09-16] MEDS ORDERED: ALTEPLASE BOLUS FOR STROKE 8 MG in EMPTY SYRINGE 1 SYR IV STA (08:51)
[2021-09-16] MEDS ORDERED: ALTEPLASE 73 MG in EMPTY BAG 1 BAG IV STA (08:51)
--- NOTE | 2021-09-16 09:01 | ED ---
General Adult HPI - General Chief complaint: Neuro Symptoms/Deficit Stated complaint: right side weakness, possible sinus infection Time Seen by Provider: 09/16/21 08:30 Source: patient, RN notes reviewed, old records reviewed Mode of arrival: ambulatory Limitations: no limitations - History of Present Illness Initial comments: This is a 65-year-old female who presents to the emergency department with right-sided weakness last known well at 6:30 AM. Patient states she went to the [employer] and was unable to get the Kleenex box of the right hand. Patient also has noted some right leg weakness. Patient denies any headache. Patient denies any recent illness. Patient states she's had a history of TIAs in the past. Patient denies chest pain palpitations difficult breathing shortness of breath per patient denies any abdominal pain patient denies nausea vomiting diarrhea. - Related Data Home Medications Medication Instructions Recorded Confirmed Aspirin 81 mg PO DAILY@0700 04/09/18 09/16/21 Loratadine [Claritin] 10 mg PO DAILY 04/09/18 09/16/21 ALPRAZolam [Xanax] 0.25 mg PO HS PRN 09/16/21 09/16/21 Albuterol Nebulized [Ventolin 2.5 mg INHALATION RT-Q6H PRN 09/16/21 09/16/21 Nebulized] Aspirin EC [Ecotrin] 325 mg PO DAILY PRN 09/16/21 09/16/21 Calcium Carbonate [Tums] 500 mg PO TID PRN 09/16/21 09/16/21 atenoloL [Tenormin] 25 mg PO BID 09/16/21 09/16/21 Allergies Allergy/AdvReac Type Severity Reaction Status Date / Time formoterol [From Dulera] Allergy Swelling Verified 09/16/21 10:12 mometasone furoate Allergy Swelling Verified 09/16/21 10:12 [From Dulera] spironolactone Allergy Unknown Verified 09/16/21 10:12 [From Aldactone] Sulfa (Sulfonamide Allergy Swelling Verified 09/16/21 10:12 Antibiotics) sulfamethoxazole Allergy Rash/Hives Verified 09/16/21 10:12 [From Bactrim] trimethoprim [From Bactrim] Allergy Rash/Hives Verified 09/16/21 10:12 amlodipine AdvReac Intermediate Rapid Verified 09/16/21 10:12 Heart Rate amoxicillin AdvReac Nausea Verified 09/16/21 10:12 codeine AdvReac Unknown Verified 09/16/21 10:12 lisinopril AdvReac Unknown Verified 09/16/21 10:12 omeprazole [From Prilosec] AdvReac Rash/Hives Verified 09/16/21 10:12 ramipril AdvReac Unknown Verified 09/16/21 10:12 steroids AdvReac Unknown Uncoded 09/16/21 08:38 Review of Systems ROS Statement: Those systems with pertinent positive or pertinent negative responses have been documented in the HPI. ROS Other: All systems not noted in ROS Statement are negative. Past Medical History Past Medical History: Hypertension, Mitral Valve Prolapse (MVP) Additional Past Medical History / Comment(s): TIA possible middle ear issue 11/2015-vertigo, pt states recently tx for ear infection. History of Any Multi-Drug Resistant Organisms: None Reported Past Surgical History: Cholecystectomy, Hysterectomy, Tonsillectomy Additional Past Surgical History / Comment(s): colonoscopy Past Anesthesia/Blood Transfusion Reactions: No Reported Reaction Past Psychological History: Anxiety Smoking Status: Never smoker Past Alcohol Use History: None Reported Past Drug Use History: None Reported - Past Family History Father Family Medical History: Coronary Artery Disease (CAD), Diabetes Mellitus, Myocardial Infarction ([place]) Additional Family Medical History / Comment(s): Father had a pacemaker. He at the age of 76yrs from a [place]. Mother Family Medical History: GERD/Reflux, Hypertension General Exam - General Exam Comments Initial Comments: GENERAL: Patient is well-developed and well-nourished. Patient is nontoxic and well- hydrated and is in no acute distress. ENT: Neck is soft and supple. No significant lymphadenopathy is noted. Oropharynx is clear. Moist mucous membranes. Neck has full range of motion without eliciting any pain. EYES: The sclera were anicteric and conjunctiva were pink and moist. Extraocular movements were intact and pupils were equal round and reactive to light. Eyelids were unremarkable. PULMONARY: Unlabored respirations. Good breath sounds bilaterally. No audible rales rhonchi or wheezing was noted. CARDIOVASCULAR: There is a regular rate and rhythm without any murmurs gallops or rubs. ABDOMEN: Soft and nontender with normal bowel sounds. No palpable organomegaly was noted. There is no palpable pulsatile mass. SKIN: Skin is clear with no lesions or rashes and otherwise unremarkable. NEUROLOGIC: Patient is alert and oriented x3. Cranial nerves II through XII are grossly intact. Patient's strength on the right pick up operator and dorsi and plantar flexion of the foot is 2 out of 5 compared to left. Normal speech, volume and content. Symmetrical smile. Finger nose testing on the right is poor MUSCULOSKELETAL: Normal extremities with adequate strength and full range of motion. LYMPHATICS: No significant lymphadenopathy is noted PSYCHIATRIC: Normal psychiatric evaluation. Limitations: no limitations Course Vital Signs 09/16/21 09/16/21 09/16/21 08:27 08:50 09:05 Temperature 98.1 F 98.1 F Pulse Rate 83 98 90 Respiratory 22 18 18 Rate Blood Pressure 210/107 206/94 191/97 O2 Sat by Pulse 96 99 97 Oximetry 09/16/21 09/16/21 09/16/21 09:17 09:20 09:35 Temperature 98.2 F Pulse Rate 89 88 89 Respiratory 18 18 18 Rate Blood Pressure 184/84 186/89 202/95 O2 Sat by Pulse 95 96 95 Oximetry 09/16/21 09/16/21 09/16/21 09:50 10:05 10:20 Temperature Pulse Rate 84 84 89 Respiratory 18 18 18 Rate Blood Pressure 183/105 171/93 176/84 O2 Sat by Pulse 95 95 96 Oximetry Medical Decision Making - Medical Decision Making EKG shows sinus rhythm at 84 bpm DC interval is on a 51 QRS is 90 QT interval is 350 QTC is 399. Patient's EKG shows no ST segment elevation or depression. Patient was brought back to room 21 minutes after patient arrival. I called a code alteplase after I interviewed the patient. Patient's blood pressure was too high to immediately give alteplase and shortly thereafter we will bring and the blood pressure down but the patient's symptoms improved when any H of 1. At this point in time I consulted the neuroi nterventionalist and he agreed with me that the risks outweighed the benefits of alteplase so we did not give it at this time. Patient received labetalol and blood pressure came down systolic was 170s. I spoke with others sharp he agreed to admit the patient and the patient wrote admitting orders. - Lab Data Result diagrams: 09/16/21 08:50 09/16/21 08:50 Lab Results 09/16/21 09/16/21 09/16/21 Range/Units 08:50 08:50 08:50 WBC 11.0 H (3.8-10.6) k/uL RBC 4.94 (3.80-5.40) m/uL Hgb 12.8 (11.4-16.0) gm/dL Hct 40.3 (34.0-46.0) % MCV 81.6 (80.0-100.0) fL MCH 26.0 (25.0-35.0) pg MCHC 31.9 (31.0-37.0) g/dL RDW 13.9 (11.5-15.5) % Plt Count 275 (150-450) k/uL MPV 8.3 Neutrophils % 77 % Lymphocytes % 13 % Monocytes % 4 % Eosinophils % 4 % Basophils % 0 % Neutrophils # 8.5 H (1.3-7.7) k/uL Lymphocytes # 1.4 (1.0-4.8) k/uL Monocytes # 0.5 (0-1.0) k/uL Eosinophils # 0.4 (0-0.7) k/uL Basophils # 0.0 (0-0.2) k/uL PT 10.4 (9.0-12.0) sec INR 1.0 (<1.2) APTT 24.8 (22.0-30.0) sec Sodium 139 (137-145) mmol/L Potassium 4.4 (3.5-5.1) mmol/L Chloride 104 (98-107) mmol/L Carbon Dioxide 23 (22-30) mmol/L Anion Gap 12 mmol/L BUN 10 (7-17) mg/dL Creatinine 0.56 (0.52-1.04) mg/dL Est GFR (CKD-EPI)AfAm >90 (>60 ml/min/1.73 sqM) Est GFR (CKD-EPI)NonAf >90 (>60 ml/min/1.73 sqM) Glucose 112 H (74-99) mg/dL POC Glucose (mg/dL) (75-99) mg/dL POC Glu Receivable Executive ID Calcium 9.4 (8.4-10.2) mg/dL Total Bilirubin 0.8 (0.2-1.3) mg/dL AST 20 (14-36) U/L ALT 16 (4-34) U/L Alkaline Phosphatase 68 (38-126) U/L Troponin I (0.000-0.034) ng/mL Total Protein 7.7 (6.3-8.2) g/dL Albumin 4.5 (3.5-5.0) g/dL 09/16/21 09/16/21 Range/Units 08:50 09:16 WBC (3.8-10.6) k/uL RBC (3.80-5.40) m/uL Hgb (11.4-16.0) gm/dL Hct (34.0-46.0) % MCV (80.0-100.0) fL MCH (25.0-35.0) pg MCHC (31.0-37.0) g/dL RDW (11.5-15.5) % Plt Count (150-450) k/uL MPV Neutrophils % % Lymphocytes % % Monocytes % % Eosinophils % % Basophils % % Neutrophils # (1.3-7.7) k/uL Lymphocytes # (1.0-4.8) k/uL Monocytes # (0-1.0) k/uL Eosinophils # (0-0.7) k/uL Basophils # (0-0.2) k/uL PT (9.0-12.0) sec INR (<1.2) APTT (22.0-30.0) sec Sodium (137-145) mmol/L Potassium (3.5-5.1) mmol/L Chloride (98-107) mmol/L Carbon Dioxide (22-30) mmol/L Anion Gap mmol/L BUN (7-17) mg/dL Creatinine (0.52-1.04) mg/dL Est GFR (CKD-EPI)AfAm (>60 ml/min/1.73 sqM) Est GFR (CKD-EPI)NonAf (>60 ml/min/1.73 sqM) Glucose (74-99) mg/dL POC Glucose (mg/dL) 113 H (75-99) mg/dL POC Glu Receivable Executive ID Rosales, Paula Calcium (8.4-10.2) mg/dL Total Bilirubin (0.2-1.3) mg/dL AST (14-36) U/L ALT (4-34) U/L Alkaline Phosphatase (38-126) U/L Troponin I <0.012 (0.000-0.034) ng/mL Total Protein (6.3-8.2) g/dL Albumin (3.5-5.0) g/dL Critical Care Time Critical Care Time: Yes Total Critical Care Time: 35 Disposition Clinical Impression: CVA (cerebral vascular accident) Disposition: ADMITTED IP TO THIS HOSP Referrals: Chastity Cordova MD [Primary Care Provider] - 1-2 days Time of Disposition: 10:28
[2021-09-16] MEDS ORDERED: LABETALOL 5 MG/ML VIAL MDV IVP STA (09:09)
[2021-09-16 09:15] LABS: ALT 16 U/L (4-34); AST 20 U/L (14-36); African American GFR (CKD) >90 (>60 ml/min/1.73 sqM); Albumin 4.5 g/dL (3.5-5.0); Alkaline Phosphatase 68 U/L (38-126); Anion Gap 12 mmol/L; Blood Urea Nitrogen 10 mg/dL (7-17); Calcium 9.4 mg/dL (8.4-10.2); Carbon Dioxide 23 mmol/L (22-30); Chloride 104 mmol/L (98-107); Glucose 112 mg/dL (74-99); Non-African American GFR(CKD) >90 (>60 ml/min/1.73 sqM); Potassium 4.4 mmol/L (3.5-5.1); Sodium 139 mmol/L (137-145); Total Bilirubin 0.8 mg/dL (0.2-1.3); Total Protein 7.7 g/dL (6.3-8.2)
[2021-09-16 09:17] LABS: Glucose,Whole Blood 113 mg/dL (75-99)
[2021-09-16 09:18] LABS: Basophils % (A) 0 %; Eosinophils # (A) 0.4 k/uL (0-0.7); Eosinophils % (A) 4 %; HCT 40.3 % (34.0-46.0); HGB 12.8 gm/dL (11.4-16.0); Lymphocytes # (A) 1.4 k/uL (1.0-4.8); Lymphocytes % (A) 13 %; MCHC 31.9 g/dL (31.0-37.0); MCV 81.6 fL (80.0-100.0); Mean Platelet Volume 8.3; Monocytes # (A) 0.5 k/uL (0-1.0); Monocytes % (A) 4 %; Neutrophils # (A) 8.5 k/uL (1.3-7.7); Neutrophils % (A) 77 %; Platelet Count 275 k/uL (150-450); RBC 4.94 m/uL (3.80-5.40); RDW 13.9 % (11.5-15.5)
--- NOTE | 2021-09-16 09:25 | CT ---
EXAMINATION TYPE: CT brain wo con for TPA DATE OF EXAM: 09/16/2021 COMPARISON: CT dated 06/01/2017 HISTORY: Rt side weakness CT DLP: 1092.8 mGycm Automated exposure control for dose reduction was used. TECHNIQUE: CT scan of the brain is performed without IV contrast administration. FINDINGS: Bilateral cerebral white matter hypodensities, likely representing mild chronic microvascular ischemi c changes. Scattered arterial atherosclerotic calcifications. No acute intracranial hemorrhage. No gross acute cortical infarct. No midline shift, herniation or ve ntriculomegaly. Unremarkable basal cisterns, sella and CP angles. No gross space-occupying lesion, vasogenic edema or mass effect. Unremarkable orbits. Mucosal thickening of the maxillary sinuses and ethmoid air cells. Opacified rig ht inferior mastoid air cells. No aggressive bone lesion. IMPRESSION: No acute intracranial hemorrhage or gross acute cortical infarct. Incidental findings as described ab ove.
[2021-09-16 09:26] LABS: Partial Thromboplastin Time 24.8 sec (22.0-30.0); Prothrombin Time 10.4 sec (9.0-12.0)
[2021-09-16] MEDS ORDERED: SODIUM CHLORIDE 0.9% 50 ML MINI-BAG IV ONE (09:51)
--- NOTE | 2021-09-16 10:01 | CT ---
EXAMINATION TYPE: CT angio head neck DATE OF EXAM: 09/16/2021 HISTORY: Rt side weakness COMPARISON: CTA dated 06/01/2017 CT DLP: 694.1 mGycm. Automated Exposure Control for Dose Reduction was Utilized. TECHNIQUE: CTA scan of the head and neck is performed with IV Contrast, patient injected with 65 mL of Isovue 370, axial images are obtained, coronal and sagittal reformatted images are reviewed. 3D re constructed images are created on an independent workstation and reviewed. FINDINGS: Carotid/Vascular Structures: Bovine aortic arch. Scattered arterial atherosclerotic calcification and tortuosity. Artifacts at the level of bifurcation of the left common carotid artery demonstrating at herosclerotic calcifications. -type varitypist. No significant arterial stenosis, occlusion, dissectio n, aneurysm or AV malformation otherwise. Patent major intracranial venous sinuses. Other: No intracranial abnormal enhancement. Scattered subcentimeter bilateral cervical lymph nodes, nonspecific. No paraspinal lesion. No gross aggressive bone lesion. IMPRESSION: Atherosclerotic calcification at the bifurcation of the left common carotid artery, suboptimally asse ssed due to artifacts at that level. Otherwise no significant arterial stenosis, occlusion, dissectio n or aneurysm. Incidental findings as described above.
[2021-09-16] MEDS ORDERED: ASPIRIN 325 MG TAB PO STA (10:30)
[2021-09-16] MEDS ORDERED: TICAGRELOR 90 MG TAB PO STA (10:30)
--- NOTE | 2021-09-16 10:41 | XR ---
EXAMINATION TYPE: XR chest 2V DATE OF EXAM: 09/16/2021 COMPARISON: X-ray dated 02/05/2018 HISTORY: Altered mental status, cough and congestion TECHNIQUE: Frontal and lateral views of the chest are obtained. FINDINGS: Increased cardiac transverse diameter, please correlate with echocardiographic results. Slightly congested pulmonary vasculature with slightly prominent interstitial lung markings which may suggest mild pulmonary edema, please correlate clinically. Grossly unremarkable remainder of the lungs. No sizable pleural effusion or definite pneumothorax. No gross aggressive bone lesion. IMPRESSION: As above.
--- NOTE | 2021-09-16 14:26 | P.CNNES ---
History of Present Illness Consult date: 09/16/21 Requesting physician: Jayy Valdovinos Reason for Consult: CVA History of Present Illness: Patient is a 65-year-old right-handed female with history of hypertension, came to the hospital at 8:24 AM because of acute onset of right arm and leg weakness that she noticed on waking up at 6:30 AM. Patient states that she started having some sinus infection last 09/11/2021. The sinus symptoms got worse over the weekend. Patient states that she woke up at 5 AM this morning, complained of some headache, congestion, coughed up a lot of mucus. She was feeling fine otherwise except for headache. She took a full aspirin and went to sleep again. She woke up at 6:30 AM, and when she tried to get up to get more tissue paper, she felt her right side of the body was weak. The right arm felt like "lead". She sat on the edge of the bed, felt like something was happening on the right side. She had no dizziness, no slurred speech or facial droop. She tried to go to the bathroom, and felt her right leg was "like rubber". She took another full aspirin at 6:30 AM. There was no facial droop noticed by the , any visual symptoms of slurred speech. As her symptoms did not improve, patient came to ER at 8:24 AM. Her blood pressure on arrival was 210/107, pulse rate 83 temperature 98.1. The blood pressure came down to 191/97 at 9:05 AM, and 171/93 at 10:05 AM. Her blood test shows WBC 11.0 hemoglobin 12.8 and platelets are normal to 75. PT/PTT normal, Chem-[address]roponin negative. CT head showed no acute intracranial hemorrhage or [place] acute cortical infarct. Mucosal thickening of the maxillary sinuses and ethmoid air cells. Opacified right inferior mastoid air cells. I personally review CT head, agree with the findings. No acute process. Some small vessel disease was noted. Some questionable hypodensity in the left posterior frontal subcortical white matter. There is mucosal thickening of the bilateral maxillary and some ethmoid air cells. Sphenoid and frontal sinuses are clear. CTA of head and neck revealed atherosclerotic calcification at the bifurcation of the left common carotid artery, suboptimally assessed due to artifacts at that level. Otherwise no significant arterial stenosis, occlusion or dissection or aneurysm. EKG shows sinus rhythm. Patient was evaluated by Dr. Valdovinos in ED. Stroke code alteplase was activated. Her last known well was 5 AM Patient's blood pressure was noted to be very high. However when the blood pressure improved with labetalol, patient's neurological symptoms reported to have much improved with NIH stroke scale reported as 1. Dr. Valdovinos consulted with stroke neurologist/neuro intervention Dr Patton, who felt the risks outweigh the benefits of alteplase. Patient was given loading dose of Brilinta 180 mg. At present patient still feels her right arm is slightly heavy and right leg feels slightly rubbery. She says that earlier, she was not able to lift the right arm at all, now she can lift it up and hold it though feels heavy. Patient states that she has history of TIA a few years ago when she had pr esented with dizziness and left-sided weakness. She was seen by Dr. Sheth on 06/01/2017, diagnosed with TIA. She had another presentation for dizziness and chest pain on 11/22/2015 and was also felt to be TIA. Patient had MRI performed each time, and both of the times was negative for any stroke. I reviewed the MRI from 06/02/2017 and agree there is no signs of an acute stroke. MRA of the brain on 11/23/1959 was negative for any stenosis or aneurysm. Patient is a nonsmoker, does not drink alcohol. She has hypertension for 10 years, which is controlled. No diabetes. Patient does take aspirin 81 mg daily, but only 3-4 days a week. She has been taking low dose aspirin not very regularly for last couple years. Patient states that she is fully vaccinated for pleitez virus. Review of Systems As mentioned above in detail. All other 14 point review of systems, reviewed unremarkable. No chest pain, abdominal pain nausea vomiting. Past Medical History Past Medical History: Hypertension, Mitral Valve Prolapse (MVP) Additional Past Medical History / Comment(s): TIA possible middle ear issue 11/2015-vertigo, pt states recently tx for ear infection. History of Any Multi-Drug Resistant Organisms: None Reported Past Surgical History: Cholecystectomy, Hysterectomy, Tonsillectomy Additional Past Surgical History / Comment(s): colonoscopy Past Anesthesia/Blood Transfusion Reactions: No Reported Reaction Past Psychological History: Anxiety Smoking Status: Never smoker Past Alcohol Use History: None Reported Past Drug Use History: None Reported - Past Family History Father Family Medical History: Coronary Artery Disease (CAD), Diabetes Mellitus, Myocardial Infarction ([place]) Additional Family Medical History / Comment(s): Father had a pacemaker. He at the age of 76yrs from a [place]. Mother Family Medical History: GERD/Reflux, Hypertension Medications and Allergies Home Medications Medication Instructions Recorded Confirmed Type Aspirin 81 mg PO DAILY@0700 04/09/18 09/16/21 History Loratadine [Claritin] 10 mg PO DAILY 04/09/18 09/16/21 History ALPRAZolam [Xanax] 0.25 mg PO HS PRN 09/16/21 09/16/21 History Albuterol Nebulized [Ventolin 2.5 mg INHALATION RT-Q6H PRN 09/16/21 09/16/21 History Nebulized] Aspirin EC [Ecotrin] 325 mg PO DAILY PRN 09/16/21 09/16/21 History Calcium Carbonate [Tums] 500 mg PO TID PRN 09/16/21 09/16/21 History atenoloL [Tenormin] 25 mg PO BID 09/16/21 09/16/21 History Allergies Allergy/AdvReac Type Severity Reaction Status Date / Time formoterol [From Dulera] Allergy Swelling Verified 09/16/21 10:12 mometasone furoate Allergy Swelling Verified 09/16/21 10:12 [From Dulera] spironolactone Allergy Unknown Verified 09/16/21 10:12 [From Aldactone] Sulfa (Sulfonamide Allergy Swelling Verified 09/16/21 10:12 Antibiotics) sulfamethoxazole Allergy Rash/Hives Verified 09/16/21 10:12 [From Bactrim] trimethoprim [From Bactrim] Allergy Rash/Hives Verified 09/16/21 10:12 amlodipine AdvReac Intermediate Rapid Verified 09/16/21 10:12 Heart Rate amoxicillin AdvReac Nausea Verified 09/16/21 10:12 codeine AdvReac Unknown Verified 09/16/21 10:12 lisinopril AdvReac Unknown Verified 09/16/21 10:12 omeprazole [From Prilosec] AdvReac Rash/Hives Verified 09/16/21 10:12 ramipril AdvReac Unknown Verified 09/16/21 10:12 steroids AdvReac Unknown Uncoded 09/16/21 08:38 Physical Examination - Vital Signs Vital Signs: Vital Signs Temp Pulse Resp BP Pulse Ox 09/16/21 10:50 98.2 F 78 16 173/86 95 09/16/21 10:35 74 16 171/82 94 L 09/16/21 10:20 89 18 176/84 96 09/16/21 10:05 84 18 171/93 95 09/16/21 09:50 84 18 183/105 95 09/16/21 09:35 89 18 202/95 95 09/16/21 09:20 98.2 F 88 18 186/89 96 09/16/21 09:17 89 18 184/84 95 09/16/21 09:05 90 18 191/97 97 09/16/21 08:50 98.1 F 98 18 206/94 99 09/16/21 08:27 98.1 F 83 22 210/107 96 Intake and Output 09/15/21 09/16/21 09/16/21 22:59 06:59 14:59 Other: Weight 89.811 kg Patient is an elderly female, in no acute distress. Patient is alert awake oriented to time place and person. Speech and language functions are normal. Attention, concentration and fund of knowledge is adequate. Patient can name and repeat very well. No aphasia or dysarthria. On cranial nerve examination, pupils are equal, round and reacting to light, visual morataya are full on confrontation, with no neglect on double simultaneous stimulation. Her extraocular muscles are intact with no nystagmus. Face is symmetric, tongue protrudes to the midline. Palatal elevation and sensation normal, hearing and shoulder shrug normal, facial sensation normal. Shoulder shrug normal. On muscle strength testing, there is a right pronator drift, and arm appears ataxic, but does not hit the bed. The strength is (right/left) deltoid 5-/5, biceps 5-/5, triceps 5/5, flavor extractor 4/5. Hip flexion 3/5, ankle dorsiflexion 5/5. Deep tendon reflexes are (right/left) biceps 2/1 brachial radialis 2/1, knee 1+/1+, ankles 1/1 and plantar is up on the right, down on left. Sensory to touch is decreased for touch in the right arm and right leg as compared to the left side. Sensations is equal on the face. Cerebellar function showed mild ataxia for [id number] testing only on the right arm, not on the left. Patient cannot perform [id number] on the right. Tone and bulk of muscles normal. Gait not checked. On general examination, there is no carotid bruit or murmur, S1-S2 audible. Abdomen is soft nontender. No organomegaly, bowel sounds present. Chest is clear. Peripheral pulses are present. No edema. Results - Laboratory Findings CBC and BMP: 09/16/21 08:50 09/16/21 08:50 Abnormal Lab Findings: Abnormal Labs 09/16/21 09/16/21 09/16/21 08:50 08:50 09:16 WBC 11.0 H Neutrophils # 8.5 H Glucose 112 H POC Glucose (mg/dL) 113 H Assessment and Plan Assessment: * Probable acute ischemic stroke, manifesting with mild right hemiparesis and partial right hemisensory loss (involving arm and leg). Patient also has mild ataxia on the right. Her current NIH stroke scale is 5. * Hypertension * Hyperlipidemia * Previous history of TIA Plan: * Patient was considered not a candidate for TPA, due to rapidly improving symptoms (please refer to Dr. Valdovinos's report for details) * Patient has received a loading dose of Brilinta 180 mg. Patient will be continued on 90 mg twice a day and aspirin 81 mg daily. * Patient will undergo MRI of the brain to evaluate for an acute stroke. * Fasting lipid panel, hemoglobin A1c * 2-D echo with bubble study * CTA of head and neck revealed no significant stenosis. * Carotid Doppler, as CTA was not the optimal study. * Permissive hypertension for 24-48 hours. Treat BP if >220/120. * Telemetric monitoring rule out arrhythmia. * Continue close neuro checks. * DVT prophylaxis: Heparin 5000 units subcu every 8 hours. * PT OT, speech therapy. * Neurology will follow. Thank you for the consult. Time with Patient: Greater than 30
[2021-09-16] MEDS ORDERED: ALBUTEROL NEBULIZED 2.5 MG/3 ML INHALATION PRN (17:38)
[2021-09-16] MEDS ORDERED: CALCIUM CARBONATE 500 MG CHEWABLE PO PRN (17:38)
[2021-09-16] MEDS: HEPARIN SODIUM,PORCINE/PF 5,000 UNIT/0.5 ML SYRINGE SQ SCH (18:39)
[2021-09-16] MEDS: ALBUTEROL NEBULIZED 2.5 MG/3 ML INHALATION PRN (19:50)
[2021-09-16] MEDS: LORATADINE 10 MG TAB PO SCH (20:35)
[2021-09-16] MEDS: atenoloL 25 MG TAB PO SCH (20:35)
[2021-09-16] MEDS: TICAGRELOR 90 MG TAB PO SCH (20:35)
[2021-09-16] MEDS: ALPRAZolam 0.25 MG TAB PO PRN (23:49)
[2021-09-17] MEDS: HEPARIN SODIUM,PORCINE/PF 5,000 UNIT/0.5 ML SYRINGE SQ SCH ×4 (00:15→23:53)
[2021-09-17] MEDS: ASPIRIN 81 MG PO SCH (06:57)
[2021-09-17] MEDS: atenoloL 25 MG TAB PO SCH ×2 (08:31→21:05)
[2021-09-17] MEDS: LORATADINE 10 MG TAB PO SCH (08:32)
[2021-09-17] MEDS: TICAGRELOR 90 MG TAB PO SCH ×2 (08:32→21:05)
[2021-09-17] MEDS ORDERED: LORazepam 2 MG/ML INJ IV STA (08:51)
[2021-09-17] MEDS ORDERED: ASPIRIN 325 MG TAB PO SCH (09:00)
[2021-09-17 09:38] LABS: Basophils # (A) 0.1 k/uL (0-0.2); Basophils % (A) 1 %; Eosinophils # (A) 0.4 k/uL (0-0.7); Eosinophils % (A) 4 %; HCT 41.7 % (34.0-46.0); Lymphocytes # (A) 1.1 k/uL (1.0-4.8); Lymphocytes % (A) 12 %; MCH 25.6 pg (25.0-35.0); MCHC 31.2 g/dL (31.0-37.0); MCV 82.1 fL (80.0-100.0); Mean Platelet Volume 7.8; Monocytes # (A) 0.4 k/uL (0-1.0); Monocytes % (A) 4 %; Neutrophils # (A) 7.1 k/uL (1.3-7.7); Neutrophils % (A) 78 %; Platelet Count 266 k/uL (150-450); RBC 5.09 m/uL (3.80-5.40); RDW 13.3 % (11.5-15.5); WBC 9.2 k/uL (3.8-10.6)
[2021-09-17 09:58] LABS: ALT 16 U/L (4-34); AST 18 U/L (14-36); African American GFR (CKD) >90 (>60 ml/min/1.73 sqM); Albumin 4.6 g/dL (3.5-5.0); Alkaline Phosphatase 70 U/L (38-126); Anion Gap 11 mmol/L; Blood Urea Nitrogen 8 mg/dL (7-17); Calcium 9.3 mg/dL (8.4-10.2); Carbon Dioxide 26 mmol/L (22-30); Chloride 104 mmol/L (98-107); Glucose 109 mg/dL (74-99); Non-African American GFR(CKD) >90 (>60 ml/min/1.73 sqM); Potassium 3.8 mmol/L (3.5-5.1); Sodium 141 mmol/L (137-145); Total Protein 7.9 g/dL (6.3-8.2)
--- NOTE | 2021-09-17 11:42 | MR ---
MR brain without contrast HISTORY: Stroke, TIA Multiplanar multisequence imaging through the brain and correlated to prior brain MRI 05/23/2017, CT b rain 09/16/2021 Restricted diffusion is noted in the left pleitez radiata distribution with corresponding hyperintensi ty noted on inversion recovery T2-weighted sequences. Confluent and scattered periventricular and per icallosal, subcortical hyperintensities present on inversion recovery T2-weighted sequences. No hemor rhage or hydrocephalus. Cortical atrophy is noted. There are normal vascular flow voids. Inflammatory change present within the maxillary sinuses, ethmoid air cells, frontal sinus. Mild inflammatory angelica nge present within the mastoid air cells. The corpus callosum, pituitary, cervical medullary junction , cerebellopontine angles are normal. IMPRESSION: Findings compatible cerebrovascular accident. Age-related changes of atrophy and chronic small vessel ischemia, sinus disease
--- NOTE | 2021-09-17 14:35 | P.HPIM ---
History of Present Illness H&P Date: 09/16/21 Ward Hale, is a 65-year-old female who presented to [facility] emergency room with a chief complaint of headache and right sided weakness, patient stated that for the last few days she had nasal congestion cough and headache, she thought that she had a sinus infection, this morning she woke up, she had a headache, she tried to go to the bathroom and noticed that she had significant weakness in her right upper extremity and right lower extremity, patient came to emergency room, she was evaluated by Dr. Valdovinos, blood pressure was significantly elevated and she received IV labetalol, by that time her blood pressure was better controlled, her symptoms improved, Dr. Valdovinos consul linda with interventional neurology, at that point risk of TPA was higher than the benefit, she did not receive TPA she received a loading dose of Brillinta 180 mg and was admitted to telemetry floor neurology consultation was requested, echocardiogram and carotid Doppler were ordered. She was evaluated in the emergency room vital examination on presentation revealed a blood pressure of 210/107 temperature 98.1 pulse 83 respiration 22 pulse ox 96% on room air Laboratory data revealed a white blood count of 11.0 hemoglobin 12.8 platelet count 275 sodium 139 potassium 4.0 chloride 104 CO2 23 BUN 12 creatinine 0.56 Testing in the emergency room revealed computed tomography scan done in the emergency room without contrast revealed no acute intracranial hemorrhage or gross acute cortical infarct, there was evidence of bilateral cerebral white matter hypodensities likely representing chronic microvascular ischemic changes, there was also evidence of mucosal thickening in bilateral maxillary sinuses and ethmoid air cells and opacification of the right inferior mastoid air cell. Chest x-ray revealed cardiomegaly otherwise no acute abnormality CT angiogram of the head and neck was supple optimal however there was no evidence of arterial stenosis or occlusion or dissection or aneurysm. Patient was admitted to medical floor for further evaluation and treatment Past Medical History Past Medical History: Hypertension, Mitral Valve Prolapse (MVP) Additional Past Medical History / Comment(s): TIA possible middle ear issue 2015-vertigo, pt states recently tx for ear infection. History of Any Multi-Drug Resistant Organisms: None Reported Past Surgical History: Cholecystectomy, Hysterectomy, Tonsillectomy Additional Past Surgical History / Comment(s): colonoscopy Past Anesthesia/Blood Transfusion Reactions: No Reported Reaction Past Psychological History: Anxiety Smoking Status: Never smoker Past Alcohol Use History: None Reported Past Drug Use History: None Reported - Past Family History Father Family Medical History: Coronary Artery Disease (CAD), Diabetes Mellitus, Myocardial Infarction ([place]) Additional Family Medical History / Comment(s): Father had a pacemaker. He at the age of 76yrs from a [place]. Mother Family Medical History: GERD/Reflux, Hypertension Medications and Allergies Home Medications Medication Instructions Recorded Confirmed Type Aspirin 81 mg PO DAILY@0700 04/09/18 09/16/21 History Loratadine [Claritin] 10 mg PO DAILY 04/09/18 09/16/21 History ALPRAZolam [Xanax] 0.25 mg PO HS PRN 09/16/21 09/16/21 History Albuterol Nebulized [Ventolin 2.5 mg INHALATION RT-Q6H PRN 09/16/21 09/16/21 History Nebulized] Aspirin EC [Ecotrin] 325 mg PO DAILY PRN 09/16/21 09/16/21 History Calcium Carbonate [Tums] 500 mg PO TID PRN 09/16/21 09/16/21 History atenoloL [Tenormin] 25 mg PO BID 09/16/21 09/16/21 History Allergies Allergy/AdvReac Type Severity Reaction Status Date / Time formoterol [From Dulera] Allergy Swelling Verified 09/16/21 10:12 mometasone furoate Allergy Swelling Verified 09/16/21 10:12 [From Dulera] spironolactone Allergy Unknown Verified 09/16/21 10:12 [From Aldactone] Sulfa (Sulfonamide Allergy Swelling Verified 09/16/21 10:12 Antibiotics) sulfamethoxazole Allergy Rash/Hives Verified 09/16/21 10:12 [From Bactrim] trimethoprim [From Bactrim] Allergy Rash/Hives Verified 09/16/21 10:12 amlodipine AdvReac Intermediate Rapid Verified 09/16/21 10:12 Heart Rate amoxicillin AdvReac Nausea Verified 09/16/21 10:12 codeine AdvReac Unknown Verified 09/16/21 10:12 lisinopril AdvReac Unknown Verified 09/16/21 10:12 omeprazole [From Prilosec] AdvReac Rash/Hives Verified 09/16/21 10:12 ramipril AdvReac Unknown Verified 09/16/21 10:12 steroids AdvReac Unknown Uncoded 09/16/21 08:38 Physical Exam Vitals: Vital Signs Temp Pulse Resp BP Pulse Ox 09/16/21 16:03 191/84 09/16/21 10:50 98.2 F 78 16 173/86 95 09/16/21 10:35 74 16 171/82 94 L 09/16/21 10:20 89 18 176/84 96 09/16/21 10:05 84 18 171/93 95 09/16/21 09:50 84 18 183/105 95 09/16/21 09:35 89 18 202/95 95 09/16/21 09:20 98.2 F 88 18 186/89 96 09/16/21 09:17 89 18 184/84 95 09/16/21 09:05 90 18 191/97 97 09/16/21 08:50 98.1 F 98 18 206/94 99 09/16/21 08:27 98.1 F 83 22 210/107 96 Intake and Output 09/16/21 09/16/21 09/16/21 06:59 14:59 22:59 Other: Weight 89.811 kg In general patient is alert and oriented x 3 in no distress HEENT head normocephalic and atraumatic Neck is supple no JVD no goiter no lymphadenopathy no carotid bruit Chest examination is clear to auscultation no crackles no wheezing Cardiac exam reveals regular heart sounds S1 and S2 no gallops no murmurs Abdomen is soft nontender no organomegaly with normal bowel sounds Extremity exam reveals no edema no cyanosis or clubbing Neurological examination reveals cranial nerves II-12 are intact , there is weakness involving the right upper extremity and the right lower extremity at 4 out of 5 as compared to the left, there is also sensory deficit to the touch stimuli on the right upper extremity and the right lower extremity as compared to the left, reflexes are 2+ symmetrical Results CBC & Chem 7: 09/16/21 08:50 09/16/21 08:50 Labs: Abnormal Lab Results - Last 24 Hours (Table) 09/16/21 09/16/21 09/16/21 Range/Units 08:50 08:50 09:16 WBC 11.0 H (3.8-10.6) k/uL Neutrophils # 8.5 H (1.3-7.7) k/uL Glucose 112 H (74-99) mg/dL POC Glucose (mg/dL) 113 H (75-99) mg/dL Assessment and Plan Plan: Acute stroke, with right sided weakness and sensory deficit Evidence of acute sinusitis patient started on IV Rocephin Underlying history of hypertension, home medications atenolol was resumed, will monitor blood pressure closely, patient had hypertensive emergency on presentation Evidence of previous small vessel ischemic disease Cardiomegaly on chest x-ray and echocardiogram pending Underlying history of morbid obesity Underlying history of anxiety disorder At this time home medications reviewed and reordered Patient is admitted to telemetry floor Echocardiogram and carotid Doppler were ordered Patient started on aspirin and Brillinta in the emergency room Patient started on IV Rocephin Neurology following Will consult physical therapy and occupational therapy will follow closely
[2021-09-17 14:38] LABS: Chol/HDL Ratio 4.01 Ratio; LDL Cholesterol,Calculated 120.4 mg/dL (0.0-131.0)
--- NOTE | 2021-09-17 17:38 | CA ---
Transthoracic Echo Report Name: Mi Hale Age: 65 Gender: F : 1955 Exam Date: 09/16/2021 14:28 Exam Location: [facility] Ht (in): 60 Wt (lb): 190 Ordering Physician: Myrna Sepulveda MD Attending/Referring Phys: Construction Services Technician Florence Quintanilla RDCS Procedure CPT: Indications: CVA Cardiac Hx: Technical Quality: Contrast 1: Total Dose (mL): Contrast 2: Total Dose (mL): MEASUREMENTS (Male / Female) Normal Values 2D ECHO LV Diastolic Diameter PLAX 4.8 cm 4.2 - 5.9 / 3.9 - 5.3 cm LV Systolic Diameter PLAX 3.0 cm IVS Diastolic Thickness 1.1 cm 0.6 - 1.0 / 0.6 - 0.9 cm LVPW Diastolic Thickness 1.3 cm 0.6 - 1.0 / 0.6 - 0.9 cm LV Relative Wall Thickness 0.5 RV Internal Dim ED PLAX 2.5 cm LA Systolic Diameter LX 4.3 cm 3.0 - 4.0 / 2.7 - 3.8 cm LA Volume 77.2 cm??? 18 - 58 / 22 - 52 cm??? M-MODE Aortic Root Diameter MM 3.0 cm LA Systolic Diameter MM 3.5 cm LA Ao Ratio MM 1.2 MV E Point Septal Separation 0.6 cm AV Cusp Separation MM 2.0 cm DOPPLER MV Area PHT 8.2 cm??? Mitral E Point Velocity 78.5 cm/s Mitral A Point Velocity 58.8 cm/s Mitral E to A Ratio 1.3 MV Deceleration Time 92.5 ms MV E' Velocity 6.0 cm/s Mitral E to MV E' Ratio 13.2 FINDINGS Left Ventricle Normal Left ventricular size, wall thickness, systolic function with no obvious regional wall motion abnormalities. Left ventricular ejection fraction is estimated at 55-60% Right Ventricle Normal right ventricular size and function. Right Atrium Normal right atrial size. Left Atrium Mildly increased left atrial diameter. Severely increased left atrial volume. Mildly increased left atrial area. BUBBLE STUDY NOT PERFORMED DUE TO IMAGES. Mitral Valve Structurally normal mitral valve. Mild mitral regurgitation. Aortic Valve Trileaflet aortic valve. Tricuspid Valve Structurally normal tricuspid valve. Mild tricuspid regurgitation. Pulmonic Valve Pulmonic valve not well visualized. Pericardium Echo free space anterior to the right ventricle likely represents a fat pad. Aorta Aortic root and proximal ascending aorta not well visualized. CONCLUSIONS Technically poor quality study grossly preserved LV systolic function. Mild mitral and tricuspid regurgitation noted. Interatrial septum appears intact bubble study was not performed because of poor quality of images Previewed by: Dr. Salud Mills MD (Electronically Signed) Final Date: 17 September 2021 17:37
[2021-09-17] MEDS: ATORVASTATIN 80 MG TAB PO SCH (21:05)
[2021-09-17] MEDS: ALPRAZolam 0.25 MG TAB PO PRN (22:11)
--- NOTE | 2021-09-18 05:43 | P.CONS ---
History of Present Illness - Chief Complaint Gait Disturbance, right hemiparesthesias - History of Present Illness I had the opportunity to see patient for inpatient rehab consultation with regard to gait disturbance. Patient admitted to Dr. Rosario September 15 acute onset right-sided weakness. Seen by neurology, Dr. Sepulveda. Initial head CT demonstrated only mild chronic change. Angiogram CT demonstrated a therosclerotic change. Chest x-ray with slight congestion. Brain MRI demonstrated age-related chronic changes as well as left pleitez radiata infarct. Has started therapy. PT reports moderate assistance bed mobility, transfer, gait 6 feet with hemiwalker. OT reports minimal assistance for feeding, grooming, upper dressing and toileting and moderate assistance for lower dressing and bathing and for functional mobility/transfers. Previous functional history as elicited from patient: 65-year-old right-handed white female who is lives and 2 floor or multilevel home with . 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 Describes independent with cooking, laundry, driving, standing shower and gait without device. PCP Dr. Cordova. Denies tobacco or alcohol. Review of Systems Review of systems: ENT: Denies sneezes or discharge. Eyes: Denies discharge or photophobia. Cardiac: Denies chest pain or palpitation. Pulmonary: Denies cough or shortness of breath. Breast: Denies discharge or lumps. Gastrointestinal: Denies nausea, emesis, constipation, diarrhea. Genitourinary: Denies discharge or frequency. Musculoskeletal: Denies muscle or bone aches. Neurologic: Right-sided weakness and inability to walk currently. Endocrine: Denies shakes or sweats. Oncology: Denies cancers. Dermatologic: Denies rash, itching, pruritus. ALLERGY/immunology: Denies sneezes, rashes. Past Medical History Past Medical History: Hypertension, Mitral Valve Prolapse (MVP) Additional Past Medical History / Comment(s): TIA possible middle ear issue 11/2015-vertigo, pt states recently tx for ear infection. History of Any Multi-Drug Resistant Organisms: None Reported Past Surgical History: Cholecystectomy, Hysterectomy, Tonsillectomy Additional Past Surgical History / Comment(s): colonoscopy Past Anesthesia/Blood Transfusion Reactions: No Reported Reaction Past Psychological History: Anxiety Smoking Status: Never smoker Past Alcohol Use History: None Reported Past Drug Use History: None Reported - Past Family History Father Family Medical History: Coronary Artery Disease (CAD), Diabetes Mellitus, Myocardial Infarction ([place]) Additional Family Medical History / Comment(s): Father had a pacemaker. He at the age of 76yrs from a [place]. Mother Family Medical History: GERD/Reflux, Hypertension Medications and Allergies Home Medications Medication Instructions Recorded Confirmed Type Aspirin 81 mg PO DAILY@0700 04/09/18 09/16/21 History Loratadine [Claritin] 10 mg PO DAILY 04/09/18 09/16/21 History ALPRAZolam [Xanax] 0.25 mg PO HS PRN 09/16/21 09/16/21 History Albuterol Nebulized [Ventolin 2.5 mg INHALATION RT-Q6H PRN 09/16/21 09/16/21 History Nebulized] Aspirin EC [Ecotrin] 325 mg PO DAILY PRN 09/16/21 09/16/21 History Calcium Carbonate [Tums] 500 mg PO TID PRN 09/16/21 09/16/21 History atenoloL [Tenormin] 25 mg PO BID 09/16/21 09/16/21 History Allergies Allergy/AdvReac Type Severity Reaction Status Date / Time formoterol [From Dulera] Allergy Swelling Verified 09/16/21 10:12 mometasone furoate Allergy Swelling Verified 09/16/21 10:12 [From Dulera] spironolactone Allergy Unknown Verified 09/16/21 10:12 [From Aldactone] Sulfa (Sulfonamide Allergy Swelling Verified 09/16/21 10:12 Antibiotics) sulfamethoxazole Allergy Rash/Hives Verified 09/16/21 10:12 [From Bactrim] trimethoprim [From Bactrim] Allergy Rash/Hives Verified 09/16/21 10:12 amlodipine AdvReac Intermediate Rapid Verified 09/16/21 10:12 Heart Rate amoxicillin AdvReac Nausea Verified 09/16/21 10:12 codeine AdvReac Unknown Verified 09/16/21 10:12 lisinopril AdvReac Unknown Verified 09/16/21 10:12 omeprazole [From Prilosec] AdvReac Rash/Hives Verified 09/16/21 10:12 ramipril AdvReac Unknown Verified 09/16/21 10:12 steroids AdvReac Unknown Uncoded 09/16/21 08:38 Physical Exam Vitals: Vital Signs Temp Pulse Resp BP Pulse Ox 09/18/21 03:23 98.2 F 68 18 133/80 95 09/18/21 02:00 76 18 09/17/21 23:55 97.6 F 76 18 184/93 94 L 09/17/21 20:00 98 F 85 18 183/90 95 09/17/21 15:04 97.4 F L 80 16 183/84 97 09/17/21 13:13 82 09/17/21 11:45 82 18 195/107 98 09/17/21 08:28 98.1 F 86 16 172/86 98 09/17/21 08:00 86 Intake and Output 09/17/21 09/17/21 09/18/21 14:59 22:59 06:59 Intake Total 500 236 Balance 500 236 Intake: Oral 500 236 Other: Voiding Method Toilet Toilet Toilet Bedside Commode Bedside Commode Bedside Commode # Voids 1 1 1 Skin: Good color, texture, turgor. General: Overweight build and comfortable appearance. Head: Normocephalic, atraumatic. Eyes: Symmetric. Pupils equal round. Ears: Symmetric. Hearing within normal limits. Mouth: Clear. Neck: Supple. Carotid without bruit. Cardiac: Regular rate and rhythm. Lungs: Clear anteriorly and posteriorly. Abdomen: Soft active nontender. Extremities: Normal tone. Neurological: Mental status: Alert, cooperative, pleasant. Cranial nerves: Symmetric facial tone and trapezius. Motor: Normal strength and isolation left side. General weakness throughout right side more so distally. Sensation: Intact throughout. DTRs: Symmetric and equal throughout. Mobility: Requires physical assist for bed mobility. Results CBC & Chem 7: 09/17/21 09:24 09/17/21 09:24 Labs: Abnormal Lab Results - Last 24 Hours (Table) 09/17/21 Range/Units 09:24 Glucose 109 H (74-99) mg/dL Assessment and Plan (1) CVA (cerebral vascular accident) Current Visit: Yes Status: Acute Code(s): I63.9 - CEREBRAL INFARCTION, UNSPECIFIED SNOMED Code(s): 440510315 (2) Benign paroxysmal positional vertigo Current Visit: No Status: Acute Code(s): H81.10 - BENIGN PAROXYSMAL VERTIGO, UNSPECIFIED EAR SNOMED Code(s): 475859439 Plan: Comments and plan: Patient with left pleitez radiata infarct resultant right hemiparesthesias and gait disturbance. Safety concerns noted and the ability tolerate and benefit therapies. I discussed inpatient rehab with patient and she seems agreeable.
[2021-09-18] MEDS: ASPIRIN 81 MG PO SCH (05:59)
--- NOTE | 2021-09-18 08:01 | P.PN ---
Subjective Progress Note Date: 09/17/21 Patient was seen for a follow-up. Patient's daughters were present. Patient's also later arrived. Patient has been having some episodes, in which she would be talking, and then get spacey. Once this spell is over, she wants to get up, wants to get out of bed and wants to take out all the wires. She then calms down and have the same spell all over again. Patient had 4 such spells since yesterday, each lasting for about 10-15 minutes. She feels like she wants to "climb the wall". She was given Ativan for MRI and has calmed down. Patient has no history of alcoholism. Patient also having "full body spasms" which she has never experienced before, and she describes it as "electric pulse throughout her body". These episodes started yesterday afternoon. Last night she could not sleep fell. Patient's sinus infections has much improved with ceftriaxone. Telemetric monitoring showing sinus rhythm. No other arrhythmia. Objective - Vital Signs Vital signs: Vital Signs Temp 98.1 F 09/17/21 08:28 Pulse 82 09/17/21 13:13 Resp 18 09/17/21 11:45 BP 195/107 09/17/21 11:45 Pulse Ox 98 09/17/21 11:45 FiO2 Intake & Output 09/16/21 09/17/21 09/17/21 18:59 06:59 18:59 Intake Total 500 Output Total 700 Balance -700 500 Weight 89.811 kg Intake: Oral 500 Output: Urine 700 Other: Voiding Method Bedside Commode Toilet Bedside Commode # Voids 1 1 - Exam Patient is a late middle aged female, in no acute distress. Patient is alert awake oriented to time place and person. Speech and language functions are normal. Attention, concentration and fund of knowledge is adequate. No aphasia or dysarthria. On cranial examination, pupils are equal, round and reacting to light, visual f ields are full on confrontation, with no neglect on double simultaneous stimulation. extraocular muscles are intact with no nystagmus. Face is symmetric, tongue protrudes to the midline. Palatal elevation and sensation normal, hearing and shoulder shrug normal, facial sensation normal on either s soto. Shoulder shrug normal. On muscle strength testing, there is right pronator drift, but does not hit the bed. The strength is (right/left) deltoid 4+/5, triceps 5-/5, biceps 4+/5, grooming assistant 4- /5, hip flexion 2/5, ankle dorsiflexion 5/5. Sensory to touch is decreased in the right arm and right leg as compared to the left side. Cerebellar function showed mild ataxia for [id number] testing. Tone and bulk of muscles normal. Gait not checked. On general examination, there is no carotid bruit or murmur, S1-S2 audible. Abdomen is soft nontender. Chest is clear. Peripheral pulses are present. No edema. - Labs CBC & Chem 7: 09/17/21 09:24 09/17/21 09:24 Labs: Abnormal Lab Results - Last 24 Hours (Table) 09/17/21 Range/Units 09:24 Glucose 109 H (74-99) mg/dL Assessment and Plan Assessment: * Acute ischemic stroke, manifesting with mild right hemiparesis and partial right hemisensory loss (involving arm and leg). Patient also has mild ataxia on the right. Her current NIH stroke scale remains at 5 today. * Hypertension * Hyperlipidemia * Previous history of TIA Plan: * Patient continues to have mild right hemiparesis and right hemisensory loss including arm and leg. Not much change as compared to yesterday. * Continue Brilinta 90 mg twice a day and aspirin 81 mg daily. * MRI of the brain revealed restricted diffusion noted in the left pleitez radiata distribution with corresponding hyperintensity noted on the inversion recovery T2-weighted sequences. Small vessel ischemic disease also noted. Inflammatory changes present within the maxillary sinuses, ethmoid air cells, frontal sinuses. Mild inflammatory changes present within the mastoid air cells. I personally reviewed MRI of the brain, and appears that there is an acute stroke involving the left centrum semiovale, but a subacute ischemic CVA involving the left pleitez radiata as well. * Regarding her episodic spells of decreased responsiveness and "electric sensation in the body", we will check EEG rule out epileptiform activity. * Fasting lipid panel with cholesterol 187, LDL 120, HDL 46 and triglycerides 100. Patient started on Lipitor 80 mg daily. * Hemoglobin A1c normal 5.7. * 2-D echo with bubble study revealed technically poor quality study grossly preserved LV systolic function. Mild mitral and tricuspid regurgitation noted. Interatrial septum appears intact. Bubble study was not performed because of poor quality of images. * CTA of head and neck revealed no significant stenosis. * Carotid Doppler, as CTA was not the optimal study. * Permissive hypertension for 24-48 hours. Treat BP if >200/110. * Telemetric monitoring showed sinus rhythm, with no arrhythmia. * Continue close neuro checks. * DVT prophylaxis: Heparin 5000 units subcu every 8 hours. * PT OT, speech therapy. * Rehab consultation. Time with Patient: Greater than 30
--- NOTE | 2021-09-18 09:38 | P.PN ---
Subjective Progress Note Date: 09/18/21 Ward Hale, is a 65-year-old female who presented to [facility] emergency room with a chief complaint of headache and right sided weakness, patient stated that for the last few days she had nasal congestion cough and headache, she thought that she had a sinus infection, this morning she woke up, she had a headache, she tried to go to the bathroom and noticed that she had significant weakness in her right upper extremity and right lower extremity, patient came to emergency room, she was evaluated by Dr. Valdovinos, blood pressure was significantly elevated and she received IV labetalol, by that time her blood pressure was better controlled, her symptoms improved, Dr. Valdovinos consulted with interventional neurology, at that point risk of TPA was higher than the benefit, she did not receive TPA she received a loading dose of Brillinta 180 mg and was admitted to telemetry floor neurology consultation was requested, echocardiogram and carotid Doppler were ordered. She was evaluated in the emergency room vital examination on presentation revealed a blood pressure of 210/107 temperature 98.1 pulse 83 respiration 22 pulse ox 96% on room air Laboratory data revealed a white blood count of 11.0 hemoglobin 12.8 platelet count 275 sodium 139 potassium 4.0 chloride 104 CO2 23 BUN 12 creatinine 0.56 Testing in the emergency room revealed computed tomography scan done in the emergency room without contrast revealed no acute intracranial hemorrhage or gross acute cortical infarct, there was evidence of bilateral cerebral white matter hypodensities likely representing chronic microvascular ischemic changes, there was also evidence of mucosal thickening in bilateral maxillary sinuses and ethmoid air cells and opacification of the right inferior mastoid air cell. Chest x-ray revealed cardiomegaly otherwise no acute abnormality CT angiogram of the head and neck was supple optimal however there was no evidence of arterial stenosis or occlusion or dissection or aneurysm. Patient was admitted to medical floor for further evaluation and treatment On 09/18/2021 patient alert and oriented 3. Patient reports improvement with symptoms to right side of body. EEG and carotid Doppler has been ordered per neurology services. Discharge planning is in place to inpatient rehab. Patient reports improvement with sinus symptoms. Patient remains on IV Rocephin. Patient remains on Brilinta and asprin. At this time patient denies chest pain or shortness of breath. Patient denies nausea vomiting or diarrhea. Patient denies any urinary burning or frequency. Current vitals temp 98.2, heart rate 68, respiratory rate 18, blood pressure 133/80 with a pulse ox of 95% on room air Objective - Vital Signs Vital signs: Vital Signs Temp 98.2 F 09/18/21 03:23 Pulse 68 09/18/21 03:23 Resp 18 09/18/21 03:23 BP 133/80 09/18/21 03:23 Pulse Ox 95 09/18/21 03:23 FiO2 Intake & Output 09/17/21 09/18/21 09/18/21 18:59 06:59 18:59 Intake Total 736 240 Balance 736 240 Intake: Oral 736 240 Other: Voiding Method Toilet Toilet Bedside Commode Bedside Commode # Voids 1 1 1 - Exam In general patient is alert and oriented x 3 in no distress HEENT head normocephalic and atraumatic Neck is supple no JVD no goiter no lymphadenopathy no carotid bruit Chest examination is clear to auscultation no crackles no wheezing Cardiac exam reveals regular heart sounds S1 and S2 no gallops no murmurs Abdomen is soft nontender no organomegaly with normal bowel sounds Extremity exam reveals no edema no cyanosis or clubbing Neurological examination reveals cranial nerves II-12 are intact , there is weakness involving the right upper extremity and the right lower extremity at 4 out of 5 as compared to the left, there is also sensory deficit to the touch stimuli on the right upper extremity and the right lower extremity as compared to the left, reflexes are 2+ symmetrical - Labs CBC & Chem 7: 09/17/21 09:24 09/17/21 09:24 Labs: Abnormal Lab Results - Last 24 Hours (Table) 09/17/21 Range/Units 09:24 Glucose 109 H (74-99) mg/dL Assessment and Plan Plan: Acute stroke, with right sided weakness and sensory deficit Evidence of acute sinusitis patient started on IV Rocephin Underlying history of hypertension, home medications atenolol was resumed, will monitor blood pressure closely, patient had hypertensive emergency on presentation Evidence of previous small vessel ischemic disease Cardiomegaly on chest x-ray and echocardiogram pending Underlying history of morbid obesity Underlying history of anxiety disorder At this time home medications reviewed and reordered Patient is admitted to telemetry floor Echocardiogram and carotid Doppler were ordered EEG ordered Patient started on aspirin and Brillinta in the emergency room Patient started on IV Rocephin Neurology following Will consult physical therapy and occupational therapy will follow closely Discharge planning is in place to possible inpatient rehab
--- NOTE | 2021-09-18 09:39 | US ---
EXAMINATION TYPE: US carotid duplex BILAT DATE OF EXAM: 09/18/2021 COMPARISON: Carotid ultrasound 2016. Attempted CTA 2 days ago. CLINICAL HISTORY: CVA. CTA poor study. F/U to CTA scan EXAM MEASUREMENTS: RIGHT: Peak Systolic Velocity (PSV) cm/sec ----- Right CCA: 62.4 ----- Right ICA: 74 ----- Right ECA: 84.2 ICA/CCA ratio: 1.2 RIGHT: End Diastole cm/sec ----- Right CCA: 15.9 ----- Right ICA: 20.2 ----- Right ECA: 11.5 LEFT: Peak Systolic Velocity (PSV) cm/sec ----- Left CCA: 103.1 ----- Left ICA: 92.9 ----- Left ECA: 103.1 ICA/CCA ratio: 0.9 LEFT: End Diastole cm/sec ----- Left CCA: 27.5 ----- Left ICA: 31.8 ----- Left ECA: 12.9 VERTEBRALS (direction of flow): Right Vertebral: Antegrade Left Vertebral: Antegrade Rhythm: Normal No significant stenosis seen Grayscale images show no significant focal plaque. No increased velocities are identified bilaterally . IMPRESSION: No hemodynamically significant stenosis in either internal carotid artery. Criteria for Assigning % of Stenosis / Diameter reduction (Estimation based on the indirect measurements of the internal carotid artery velocities (ICA PSV). 1. Normal (no stenosis)=ICA PSV < 125 cm/s: ratio < 2.0: ICA EDV<40 cm/s. 2. Less than 50% stenosis=ICA PSV < 125 cm/s: ratio < 2.0: ICA EDV<40 cm/s. 3. 50 to 69% stenosis=ICA PSV of 125 to 230 cm/s: ration 2.0 ? 4.0: ICA EDV 40-100 cm/s. 4. Greater than 70% stenosis to near occlusion= ICA PSV > 230 cm/s: ratio > 4.0: ICA EDV > 100 cm/s. 5. Near occlusion= ICA PSV velocities may be low or undetectable: variable ratio and ICA EDV. 6. Total occlusion=unable to detect flow.
[2021-09-18] MEDS: HEPARIN SODIUM,PORCINE/PF 5,000 UNIT/0.5 ML SYRINGE SQ SCH ×2 (10:49→16:35)
[2021-09-18] MEDS: TICAGRELOR 90 MG TAB PO SCH ×2 (10:49→21:12)
[2021-09-18] MEDS: atenoloL 25 MG TAB PO SCH ×2 (10:49→21:12)
[2021-09-18] MEDS: ALBUTEROL NEBULIZED 2.5 MG/3 ML INHALATION PRN (11:28)
[2021-09-18] MEDS: LORATADINE 10 MG TAB PO SCH ×2 (11:47→21:12)
--- NOTE | 2021-09-18 16:22 | P.PN ---
Subjective Progress Note Date: 09/18/21 09/18/2021: Patient was seen for a follow-up. Patient's and one of the daughter were present. Patient appears to be upset today. She continues to have weakness of the right arm and right leg. Feels the right arm has improved but the right leg still weak, and does not work. 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 09/17/2021: Patient was seen for a follow-up. Patient's 2 daughters were present. Patient's also later arrived. Patient has been having some episodes, in which she would be talking, and then get spacey. Once this spell is over, she wants to get up, wants to get out of bed and wants to take out all the wires. She then calms down and have the same spell all over again. Patient had 4 such spells since yesterday, each lasting for about 10-15 minutes. She feels like she wants to "climb the wall". She was given Ativan for MRI and has calmed down. Patient has no history of alcoholism. Patient also having "full body spasms" which she has never experienced before, and she describes it as "electric pulse throughout her body". These episodes started yesterday afternoon. Last night she could not sleep fell. Patient's sinus infections has much improved with ceftriaxone. Telemetric monitoring showing sinus rhythm. No other arrhythmia. Objective - Vital Signs Vital signs: Vital Signs Temp 97.8 F 09/18/21 16:01 Pulse 78 09/18/21 16:01 Resp 16 09/18/21 16:01 BP 185/97 09/18/21 16:01 Pulse Ox 97 09/18/21 16:01 FiO2 Intake & Output 09/17/21 09/18/21 09/18/21 18:59 06:59 18:59 Intake Total 736 240 Balance 736 240 Intake: Oral 736 240 Other: Voiding Method Toilet Toilet Bedside Commode Bedside Commode # Voids 1 1 1 - Exam Patient is a late middle aged female, in no acute distress. Patient is alert awake oriented to time place and person. Speech and language functions are normal. Attention, concentration and fund of knowledge is adequate. No aphasia or dysarthria. Patient can name and repeat very well. On cranial examination, pupils are equal, round and reacting to light, visual morataya are full on confrontation, with no neglect on double simultaneous stimulation. extraocular muscles are intact with no nystagmus. Face is symmetric, tongue protrudes to the midline. Palatal elevation and sensation normal, hearing and shoulder shrug normal, facial sensation normal on either side. Shoulder shrug normal. On muscle strength testing, there is right pronator drift, but does not hit the bed. It was drooping less as compared to yesterday. The strength is (right/left) deltoid 5-/5, triceps 5-/5, biceps 5/5, dethistler operator 4/5, hip flexion 3/5, ankle dorsiflexion 5/5. Sensory to touch is decreased in the right arm and right leg as compared to the left side. Cerebellar function showed mild ataxia for [id number] testing. Cannot perform [id number] on the right due to proximal right leg weakness. Tone and bulk of muscles normal. Gait not checked. On general examination, there is no carotid bruit or murmur, S1-S2 audible. Abdomen is soft nontender. Chest is clear. Peripheral pulses are present. No edema. - Labs CBC & Chem 7: 09/19/21 08:55 09/19/21 08:55 Assessment and Plan Assessment: * Acute ischemic stroke, manifesting with mild right hemiparesis and partial right hemisensory loss (involving arm and leg). Patient also has mild ataxia on the right. Her current NIH stroke scale remains at 5 today as well. * Hypertension * Hyperlipidemia * Previous history of TIA Plan: * Patient continues to have mild right hemiparesis and right hemisensory loss including arm and leg. Patient's neurological examination is better today as compared to yesterday exam. * Continue Brilinta 90 mg twice a day and aspirin 81 mg daily. * MRI of the brain revealed restricted diffusion noted in the left pleitez radiata distribution with corresponding hyperintensity noted on the inversion recovery T2-weighted sequences. Small vessel ischemic disease also noted. Inflammatory changes present within the maxillary sinuses, ethmoid air cells, frontal sinuses. Mild inflammatory changes present within the mastoid air cells. I personally reviewed MRI of the brain, and appears that there is an acute stroke involving the left centrum semiovale, but a subacute ischemic CVA involving the left pleitez radiata as well, adjacent to the occipital horn of left lateral ventricle. I reviewed it with Dr. Newberry, neuroradiologist, who agreed with the findings. Please see addendum of the report. * EEG was performed, which revealed intermittent focal slowing and sharp wave over the left temporal region. This is suggestive of focal cortical neuronal dysfunction, with underlying cortical irritability and tendency for seizures. If patient continues to have episodes of unresponsiveness, then we will start antiepileptic medication. * Fasting lipid panel with cholesterol 187, LDL 120, HDL 46 and triglycerides 100. Patient started on Lipitor 80 mg daily. * Hemoglobin A1c normal 5.7. * 2-D echo with bubble study revealed technically poor quality study grossly preserved LV systolic function. Mild mitral and tricuspid regurgitation noted. Interatrial septum appears intact. Bubble study was not performed because of poor quality of images. Discussed with patient about MAGGIE, but patient declined. She does not want any more testing. * CTA of head and neck revealed no significant stenosis. * Carotid Doppler revealed no hemodynamically significant stenosis in either ICA. Antegrade flow in both vertebral arteries. * May start bringing blood pressure down slowly to normotensive level. Blood pressure 148/80. * Continue close neuro checks. * DVT prophylaxis: Heparin 5000 units subcu every 8 hours. * PT OT * Rehab consultation note appreciated. Patient will be a candidate for inpatient rehab. Await insurance authorization.
--- NOTE | 2021-09-18 19:05 | EEG ---
ELECTROENCEPHALOGRAM REPORT DATE OF SERVICE: 09/18/2021 PREAMBLE: This is a 65-year-old female with history of acute stroke. The patient has been having episodes of decreased responsiveness. This study is performed to rule out any seizure activity. EEG FINDINGS: This is a 21 channel digital EEG recorded with video component, utilizing 10/20 international system with referential and bipolar montages. Background consists of well developed, well regulated, moderate voltage activity in 9-10 hertz alpha. Background is posterior dominant and reactive to eye opening and closing. There is frequent focal slowing and dysrhythmic theta and some delta range in the left temporal region. Some sharp appearing waves were also seen in the left temporal region. Photic driving response was seen with some flash frequencies. Different stages of sleep were not seen. IMPRESSION: This is an abnormal EEG due to the presence of intermittent focal slowing with sharp appearing waves over the left temporal region. This is suggestive of focal cortical neuronal dysfunction with underlying cortical irritability and tendency for seizures. Clinical correlation is strongly recommended. MMGILDAL / IJN: [id number] /
[2021-09-18] MEDS: ATORVASTATIN 80 MG TAB PO SCH (21:12)
[2021-09-19] MEDS: ALPRAZolam 0.25 MG TAB PO PRN (00:06)
[2021-09-19] MEDS: HEPARIN SODIUM,PORCINE/PF 5,000 UNIT/0.5 ML SYRINGE SQ SCH ×4 (00:06→22:40)
[2021-09-19] MEDS: ASPIRIN 81 MG PO SCH (06:15)
[2021-09-19] MEDS: atenoloL 25 MG TAB PO SCH ×2 (09:16→20:30)
[2021-09-19] MEDS: TICAGRELOR 90 MG TAB PO SCH ×2 (09:16→20:30)
[2021-09-19 09:24] LABS: MCH 25.3 pg (25.0-35.0); MCHC 30.8 g/dL (31.0-37.0); MCV 82.2 fL (80.0-100.0); Mean Platelet Volume 7.8; Platelet Count 293 k/uL (150-450); RBC 5.11 m/uL (3.80-5.40); RDW 13.3 % (11.5-15.5); WBC 8.2 k/uL (3.8-10.6)
[2021-09-19 09:51] LABS: African American GFR (CKD) >90 (>60 ml/min/1.73 sqM); Anion Gap 9 mmol/L; Blood Urea Nitrogen 11 mg/dL (7-17); Calcium 9.4 mg/dL (8.4-10.2); Carbon Dioxide 27 mmol/L (22-30); Chloride 103 mmol/L (98-107); Glucose 118 mg/dL (74-99); Non-African American GFR(CKD) >90 (>60 ml/min/1.73 sqM); Potassium 4.1 mmol/L (3.5-5.1); Sodium 139 mmol/L (137-145)
[2021-09-19] MEDS: ALBUTEROL NEBULIZED 2.5 MG/3 ML INHALATION PRN (11:16)
[2021-09-19] MEDS: LOSARTAN 25 MG TAB PO SCH (12:28)
--- NOTE | 2021-09-19 16:25 | XR ---
EXAMINATION TYPE: XR chest 2V DATE OF EXAM: 09/19/2021 COMPARISON: X-ray dated 09/16/2021 HISTORY: Sinus infection, cough. TECHNIQUE: Frontal and lateral views of the chest are obtained. FINDINGS: Suspected focal infiltration in the left upper lung zone, appreciated previously and slightly more pr ominent today, please correlate clinically. If there is no presentation of pneumonia, further CT asse ssment can be considered. Grossly unremarkable remainder of the lungs. No sizable pleural effusion or pneumothorax. Increased c ardiac transverse diameter. Degenerative changes of the thoracic spine. IMPRESSION: Subtle left upper lung zone changes with recommendations as described above.
--- NOTE | 2021-09-19 19:00 | P.PN ---
Subjective Progress Note Date: 09/19/21 Ward Hale, is a 65-year-old female who presented to [facility] emergency room with a chief complaint of headache and right sided weakness, patient stated that for the last few days she had nasal congestion cough and headache, she thought that she had a sinus infection, this morning she woke up, she had a headache, she tried to go to the bathroom and noticed that she had significant weakness in her right upper extremity and right lower extremity, patient came to emergency room, she was evaluated by Dr. Valdovinos, blood pressure was significantly elevated and she received IV labetalol, by that time her blood pressure was better controlled, her symptoms improved, Dr. Valdovinos consulted with interventional neurology, at that point risk of TPA was higher than the benefit, she did not receive TPA she received a loading dose of Brillinta 180 mg and was admitted to telemetry floor neurology consultation was requested, echocardiogram and carotid Doppler were ordered. She was evaluated in the emergency room vital examination on presentation revealed a blood pressure of 210/107 temperature 98.1 pulse 83 respiration 22 pulse ox 96% on room air Laboratory data revealed a white blood count of 11.0 hemoglobin 12.8 platelet count 275 sodium 139 potassium 4.0 chloride 104 CO2 23 BUN 12 creatinine 0.56 Testing in the emergency room revealed computed tomography scan done in the emergency room without contrast revealed no acute intracranial hemorrhage or gross acute cortical infarct, there was evidence of bilateral cerebral white matter hypodensities likely representing chronic microvascular ischemic changes, there was also evidence of mucosal thickening in bilateral maxillary sinuses and ethmoid air cells and opacification of the right inferior mastoid air cell. Chest x-ray revealed cardiomegaly otherwise no acute abnormality CT angiogram of the head and neck was supple optimal however there was no evidence of arterial stenosis or occlusion or dissection or aneurysm. Patient was admitted to medical floor for further evaluation and treatment On 09/18/2021 patient alert and oriented 3. Patient reports improvement with symptoms to right side of body. EEG and carotid Doppler has been ordered per neurology services. Discharge planning is in place to inpatient rehab. Patient reports improvement with sinus symptoms. Patient remains on IV Rocephin. Patient remains on Brilinta and asprin. At this time patient denies chest pain or shortness of breath. Patient denies nausea vomiting or diarrhea. Patient denies any urinary burning or frequency. Current vitals temp 98.2, heart rate 68, respiratory rate 18, blood pressure 133/80 with a pulse ox of 95% on room air. On 09/19/2021 patient was seen and examined on the telemetry floor, she is alert and oriented 3 in no apparent distress, blood pressure was staying elevated, patient has multiple medication ALLERGIES, I tried to small dose of losartan 25 mg this morning, however patient had a reaction, with feeling warm and numb and very tired, losartan was discontinued. Echocardiogram was not of good quality, patient is refusing MAGGIE, at this time she was counseled in length, will place a consult for cardiology for possible MAGGIE and for reevaluation of blood pressure medications. Patient is reporting some improvement in the right upper extremity and the right lower extremity weakness. Objective - Vital Signs Vital signs: Vital Signs Temp 97.8 F 09/19/21 11:38 Pulse 70 09/19/21 11:38 Resp 16 09/19/21 11:38 BP 152/90 09/19/21 11:38 Pulse Ox 95 09/19/21 11:38 FiO2 Intake & Output 09/18/21 09/19/21 09/19/21 18:59 06:59 18:59 Intake Total 240 220 Balance 240 220 Intake: Oral 240 220 Other: Voiding Method Toilet Bedside Commode # Voids 1 1 - Exam In general patient is alert and oriented x 3 in no distress HEENT head normocephalic and atraumatic Neck is supple no JVD no goiter no lymphadenopathy no carotid bruit Chest examination is clear to auscultation no crackles no wheezing Cardiac exam reveals regular heart sounds S1 and S2 no gallops no murmurs Abdomen is soft nontender no organomegaly with normal bowel sounds Extremity exam reveals no edema no cyanosis or clubbing Neurological examination reveals cranial nerves II-12 are intact , there is weakness involving the right upper extremity and the right lower extremity at 4 out of 5 as compared to the left, there is also sensory deficit to the touch stimuli on the right upper extremity and the right lower extremity as compared to the left, reflexes are 2+ symmetrical - Labs CBC & Chem 7: 09/19/21 08:55 09/19/21 08:55 Labs: Abnormal Lab Results - Last 24 Hours (Table) 09/19/21 09/19/21 Range/Units 08:55 08:55 MCHC 30.8 L (31.0-37.0) g/dL Glucose 118 H (74-99) mg/dL Assessment and Plan Plan: Acute stroke, with right sided weakness and sensory deficit Evidence of acute sinusitis patient started on IV Rocephin Underlying history of hypertension, home medications atenolol was resumed, will monitor blood pressure closely, patient had hypertensive emergency on presentation Evidence of previous small vessel ischemic disease Cardiomegaly on chest x-ray and echocardiogram pending Underlying history of morbid obesity Underlying history of anxiety disorder At this time home medications reviewed and reordered Patient is admitted to telemetry floor Echocardiogram and carotid Doppler were ordered EEG ordered Patient started on aspirin and Brillinta in the emergency room Patient started on IV Rocephin Neurology following Will consult physical therapy and occupational therapy will follow closely Discharge planning is in place to possible inpatient rehab
--- NOTE | 2021-09-19 19:01 | P.PN ---
Subjective Progress Note Date: 09/17/21 Ward Hale, is a 65-year-old female who presented to [facility] emergency room with a chief complaint of headache and right sided weakness, patient stated that for the last few days she had nasal congestion cough and headache, she thought that she had a sinus infection, this morning she woke up, she had a headache, she tried to go to the bathroom and noticed that she had significant weakness in her right upper extremity and right lower extremity, patient came to emergency room, she was evaluated by Dr. Valdovinos, blood pressure was significantly elevated and she received IV labetalol, by that time her blood pressure was better controlled, her symptoms improved, Dr. Valdovinos consulted with interventional neurology, at that point risk of TPA was higher than the benefit, she did not receive TPA she received a loading dose of Brillinta 180 mg and was admitted to telemetry floor neurology consultation was requested, echocardiogram and carotid Doppler were ordered. She was evaluated in the emergency room vital examination on presentation revealed a blood pressure of 210/107 temperature 98.1 pulse 83 respiration 22 pulse ox 96% on room air Laboratory data revealed a white blood count of 11.0 hemoglobin 12.8 platelet count 275 sodium 139 potassium 4.0 chloride 104 CO2 23 BUN 12 creatinine 0.56 Testing in the emergency room revealed computed tomography scan done in the emergency room without contrast revealed no acute intracranial hemorrhage or gross acute cortical infarct, there was evidence of bilateral cerebral white matter hypodensities likely representing chronic microvascular ischemic changes, there was also evidence of mucosal thickening in bilateral maxillary sinuses and ethmoid air cells and opacification of the right inferior mastoid air cell. Chest x-ray revealed cardiomegaly otherwise no acute abnormality CT angiogram of the head and neck was supple optimal however there was no evidence of arterial stenosis or occlusion or dissection or aneurysm. Patient was admitted to medical floor for further evaluation and treatment On 09/17/2021 patient was seen and examined on the telemetry floor she is alert and oriented 3 in no apparent distress reporting some improvement in the right upper extremity in the right lower extremity weakness otherwise she denies any complaints at this time, blood pressure remains elevated, at this time will not increase medications per neurology recommendation of permissive hypertension, will continue to monitor closely, echocardiogram and carotid Doppler were ordered, patient was evaluated by neurology, brain MRI and echocardiogram are pending, will follow closely Objective - Vital Signs Vital signs: Vital Signs Temp 98.1 F 09/17/21 08:28 Pulse 82 09/17/21 13:13 Resp 18 09/17/21 11:45 BP 195/107 09/17/21 11:45 Pulse Ox 98 09/17/21 11:45 FiO2 Intake & Output 09/16/21 09/17/21 09/17/21 18:59 06:59 18:59 Intake Total 500 Output Total 700 Balance -700 500 Weight 89.811 kg Intake: Oral 500 Output: Urine 700 Other: Voiding Method Bedside Commode Toilet Bedside Commode # Voids 1 1 - Exam In general patient is alert and oriented x 3 in no distress HEENT head normocephalic and atraumatic Neck is supple no JVD no goiter no lymphadenopathy no carotid bruit Chest examination is clear to auscultation no crackles no wheezing Cardiac exam reveals regular heart sounds S1 and S2 no gallops no murmurs Abdomen is soft nontender no organomegaly with normal bowel sounds Extremity exam reveals no edema no cyanosis or clubbing Neurological examination reveals cranial nerves II-12 are intact , there is weakness involving the right upper extremity and the right lower extremity at 4 out of 5 as compared to the left, there is also sensory deficit to the touch stimuli on the right upper extremity and the right lower extremity as compared to the left, reflexes are 2+ symmetrical - Labs CBC & Chem 7: 09/19/21 08:55 09/19/21 08:55 Labs: Abnormal Lab Results - Last 24 Hours (Table) 09/17/21 Range/Units 09:24 Glucose 109 H (74-99) mg/dL Assessment and Plan Plan: Acute stroke, with right sided weakness and sensory deficit Evidence of acute sinusitis patient started on IV Rocephin Underlying history of hypertension, home medications atenolol was resumed, will monitor blood pressure closely, patient had hypertensive emergency on presentation Evidence of previous small vessel ischemic disease Cardiomegaly on chest x-ray and echocardiogram pending Underlying history of morbid obesity Underlying history of anxiety disorder At this time home medications reviewed and reordered Patient is admitted to telemetry floor Echocardiogram and carotid Doppler were ordered Patient started on aspirin and Brillinta in the emergency room Patient started on IV Rocephin Neurology following Will consult physical therapy and occupational therapy will follow closely
[2021-09-19] MEDS: LORATADINE 10 MG TAB PO SCH (20:30)
[2021-09-19] MEDS: ATORVASTATIN 80 MG TAB PO SCH (20:30)
[2021-09-20] MEDS: ASPIRIN 81 MG PO SCH (06:33)
--- NOTE | 2021-09-20 08:20 | P.PN ---
Subjective Progress Note Date: 09/19/21 09/19/2021: Patient was sitting in the wheelchair, ready to go for chest x-ray. Patient's family members were also present. Patient states she is feeling better. Denies any new neurological symptoms. Patient's telemetry monitoring showing sinus rhythm in the 50s to 70s. No other arrhythmia. 09/18/2021: Patient was seen for a follow-up. Patient's and one of the daughter were present. Patient appears to be upset today. She continues to h ave weakness of the right arm and right leg. Feels the right arm has improved but the right leg still weak, and does not work. Still has problems with coordination with the right hand, no strength of the right bungy jump master. 09/17/2021: Patient was seen for a follow-up. Patient's 2 daughters were present. Patient's also later arrived. Patient has been having some episodes, in which she would be talking, and then get spacey. Once this spell is over, she wants to get up, wants to get out of bed and wants to take out all the wires. She then calms down and have the same spell all over again. Patient had 4 such spells since yesterday, each lasting for about 10-15 minutes. She feels like she wants to "climb the wall". She was given Ativan for MRI and has calmed down. Patient has no history of alcoholism. Patient also having "full body spasms" which she has never experienced before, and she describes it as "electric pulse throughout her body". These episodes started yesterday afternoon. Last night she could not sleep fell. Patient's sinus infections has much improved with ceftriaxone. Telemetric monitoring showing sinus rhythm. No other arrhythmia. Objective - Vital Signs Vital signs: Vital Signs Temp 97.8 F 09/19/21 11:38 Pulse 70 09/19/21 11:38 Resp 16 09/19/21 11:38 BP 183/89 09/19/21 14:23 Pulse Ox 95 09/19/21 11:38 FiO2 Intake & Output 09/18/21 09/19/21 09/19/21 18:59 06:59 18:59 Intake Total 240 220 Balance 240 220 Intake: Oral 240 220 Other: Voiding Method Toilet Bedside Commode # Voids 1 1 - Exam Patient is a late middle aged female, in no acute distress. Patient is alert awake oriented to time place and person. Speech and language functions are normal. Attention, concentration and fund of knowledge is adequate. No aphasia or dysarthria. Patient can name and repeat very well. On cranial examination, pupils are equal, round and reacting to light, visual morataya are full on confrontation, with no neglect on double simultaneous stimul ation. extraocular muscles are intact with no nystagmus. Face is symmetric, tongue protrudes to the midline. Palatal elevation and sensation normal, hearing and shoulder shrug normal, facial sensation normal on either side. Shoulder shrug normal. On muscle strength testing, there is mild right pronator drift, but does not hit the bed. It was drooping less as compared to yesterday. The strength is (right/left) deltoid 5/5, triceps 5-4+/5, biceps 5/5, bungy jump master 5-/5, hip flexion 4/5, ankle dorsiflexion 4/5. Sensory to touch is decreased in the right arm and right leg as compared to the left side. Cerebellar function showed v mild ataxia for [id number] testing, she was slow in the task. Cannot perform [id number] on the right due to proximal right leg weakness. Tone and bulk of muscles normal. Gait not checked. On general examination, there is no carotid bruit or murmur, S1-S2 audible. Abdomen is soft nontender. Chest is clear. Peripheral pulses are present. No edema. - Labs CBC & Chem 7: 09/19/21 08:55 09/19/21 08:55 Labs: Abnormal Lab Results - Last 24 Hours (Table) 09/19/21 09/19/21 Range/Units 08:55 08:55 MCHC 30.8 L (31.0-37.0) g/dL Glucose 118 H (74-99) mg/dL Assessment and Plan Assessment: * Acute ischemic stroke, manifesting with mild right hemiparesis and partial right hemisensory loss (involving arm and leg). Patient also has mild ataxia on the right. Her current NIH stroke scale has improved today at 4. * Hypertension * Hyperlipidemia * Previous history of TIA Plan: * Patient continues to have mild right hemiparesis and right hemisensory loss including arm and leg. Patient's neurological examination is better today as compared to yesterday exam. * Continue Brilinta 90 mg twice a day and aspirin 81 mg daily. * MRI of the brain revealed restricted diffusion noted in the left pleitez radi ismael distribution with corresponding hyperintensity noted on the inversion recovery T2-weighted sequences. Small vessel ischemic disease also noted. Inflammatory changes present within the maxillary sinuses, ethmoid air cells, frontal sinuses. Mild inflammatory changes present within the mastoid air cells. I personally reviewed MRI of the brain, and appears that there is an acute stroke involving the left centrum semiovale, but a subacute ischemic CVA involving the left pleitez radiata as well, adjacent to the occipital horn of left lateral ventricle. I reviewed it with Dr. Newberry, neuroradiologist, who agreed with the findings. Please see addendum of the report. * EEG was performed, which revealed intermittent focal slowing and sharp wave over the left temporal region. This is suggestive of focal cortical neuronal dysfunction, with underlying cortical irritability and tendency for seizures. If patient continues to have episodes of unresponsiveness, then we will start antiepileptic medication. Discussed with patient and her family about the EEG results. * Fasting lipid panel with cholesterol 187, LDL 120, HDL 46 and triglycerides 100. Patient started on Lipitor 80 mg daily. * Hemoglobin A1c normal 5.7. * 2-D echo with bubble study revealed technically poor quality study grossly preserved LV systolic function. Mild mitral and tricuspid regurgitation noted. Interatrial septum appears intact. Bubble study was not performed because of poor quality of images. Discussed with patient about MAGGIE, but patient declined. She does not want any more testing. Patient will be sc heduled for event monitor for 21-30 days at the time of discharge, to rule out paroxysmal atrial fibrillation. * CTA of head and neck revealed no significant stenosis. * Carotid Doppler revealed no hemodynamically significant stenosis in either ICA. Antegrade flow in both vertebral arteries. * May start bringing blood pressure down slowly to normotensive level. Blood pressure 148/80. * Continue close neuro checks. * DVT prophylaxis: Heparin 5000 units subcu every 8 hours. * PT OT * Rehab consultation note appreciated. Patient will be a candidate for inpatient rehab. Await insurance authorization. Neurologically clear for discharge.
--- NOTE | 2021-09-20 10:09 | P.PN ---
Subjective Progress Note Date: 09/20/21 Ward Hale, is a 65-year-old female who presented to [facility] emergency room with a chief complaint of headache and right sided weakness, patient stated that for the last few days she had nasal congestion cough and headache, she thought that she had a sinus infection, this morning she woke up, she had a headache, she tried to go to the bathroom and noticed that she had significant weakness in her right upper extremity and right lower extremity, patient came to emergency room, she was evaluated by Dr. Valdovinos, blood pressure was significantly elevated and she received IV labetalol, by that time her blood pressure was better controlled, her symptoms improved, Dr. Valdovinos consulted with interventional neurology, at that point risk of TPA was higher than the benefit, she did not receive TPA she received a loading dose of Brillinta 180 mg and was admitted to telemetry floor neurology consultation was requested, echocardiogram and carotid Doppler were ordered. She was evaluated in the emergency room vital examination on presentation revealed a blood pressure of 210/107 temperature 98.1 pulse 83 respiration 22 pulse ox 96% on room air Laboratory data revealed a white blood count of 11.0 hemoglobin 12.8 platelet count 275 sodium 139 potassium 4.0 chloride 104 CO2 23 BUN 12 creatinine 0.56 Testing in the emergency room revealed computed tomography scan done in the emergency room without contrast revealed no acute intracranial hemorrhage or gross acute cortical infarct, there was evidence of bilateral cerebral white matter hypodensities likely representing chronic microvascular ischemic changes, there was also evidence of mucosal thickening in bilateral maxillary sinuses and ethmoid air cells and opacification of the right inferior mastoid air cell. Chest x-ray revealed cardiomegaly otherwise no acute abnormality CT angiogram of the head and neck was supple optimal however there was no evidence of arterial stenosis or occlusion or dissection or aneurysm. Patient was admitted to medical floor for further evaluation and treatment On 09/17/2021 patient was seen and examined on the telemetry floor she is alert and oriented 3 in no apparent distress reporting some improvement in the right upper extremity in the right lower extremity weakness otherwise she denies any complaints at this time, blood pressure remains elevated, at this time will not increase medications per neurology recommendation of permissive hypertension, will continue to monitor closely, echocardiogram and carotid Doppler were ordered, patient was evaluated by neurology, brain MRI and echocardiogram are pending, will follow closely On 09/18/2021 patient alert and oriented 3. Patient reports improvement with symptoms to right side of body. EEG and carotid Doppler has been ordered per neurology services. Discharge planning is in place to inpatient rehab. Patient reports improvement with sinus symptoms. Patient remains on IV Rocephin. Patient remains on Brilinta and asprin. At this time patient denies chest pain or shortness of breath. Patient denies nausea vomiting or diarrhea. Patient denies any urinary burning or frequency. Current vitals temp 98.2, heart rate 68, respiratory rate 18, blood pressure 133/80 with a pulse ox of 95% on room air. On 09/19/2021 patient was seen and examined on the telemetry floor, she is alert and oriented 3 in no apparent distress, blood pressure was staying elevated, patient has multiple medication ALLERGIES, I tried to small dose of losartan 25 mg this morning, however patient had a reaction, with feeling warm and numb and very tired, losartan was discontinued. Echocardiogram was not of good quality, patient is refusing MAGGIE, at this time she was counseled in length, will place a consult for cardiology for possible MAGGIE and for reevaluation of blood pressure medications. Patient is reporting some improvement in the right upper extremity and the right lower extremity weakness. On 09/20/2021 patient is alert and oriented 3. Patient complaining of right lower extremity swelling will order venous Doppler to rule out DVT. Cardiology services have been consulted possible plans for MAGGIE. Patient reports improvemen t with right-sided movement. Patient denies chest pain or shortness of breath. Patient denies nausea vomiting or diarrhea. Patient denies any urinary burning or frequency Objective - Vital Signs Vital signs: Vital Signs Temp 97.9 F 09/20/21 04:00 Pulse 76 09/20/21 04:00 Resp 16 09/20/21 04:00 BP 121/76 09/20/21 04:00 Pulse Ox 96 09/20/21 04:00 FiO2 Intake & Output 09/19/21 09/20/21 09/20/21 18:59 06:59 18:59 Intake Total 220 10 236 Balance 220 10 236 Intake: IV 10 Invasive Line 1 10 Oral 220 236 Other: Voiding Method Toilet Bedside Commode # Voids 1 1 - Exam In general patient is alert and oriented x 3 in no distress HEENT head normocephalic and atraumatic Neck is supple no JVD no goiter no lymphadenopathy no carotid bruit Chest examination is clear to auscultation no crackles no wheezing Cardiac exam reveals regular heart sounds S1 and S2 no gallops no murmurs Abdomen is soft nontender no organomegaly with normal bowel sounds Extremity exam reveals no edema no cyanosis or clubbing Neurological examination reveals cranial nerves II-12 are intact , there is weakness involving the right upper extremity and the right lower extremity at 4 out of 5 as compared to the left, there is also sensory deficit to the touch stimuli on the right upper extremity and the right lower extremity as compared to the left, reflexes are 2+ symmetrical - Labs CBC & Chem 7: 09/19/21 08:55 09/19/21 08:55 Assessment and Plan Plan: Acute stroke, with right sided weakness and sensory deficit Evidence of acute sinusitis patient started on IV Rocephin Underlying history of hypertension, home medications atenolol was resumed, will monitor blood pressure closely, patient had hypertensive emergency on presentation Evidence of previous small vessel ischemic disease Cardiomegaly on chest x-ray and echocardiogram pending Underlying history of morbid obesity Underlying history of anxiety disorder At this time home medications reviewed and reordered Patient is admitted to telemetry floor Echocardiogram and carotid Doppler were ordered Patient started on aspirin and Brillinta in the emergency room Patient started on IV Rocephin Neurology following Will consult physical therapy and occupational therapy will follow closely
[2021-09-20] MEDS: TICAGRELOR 90 MG TAB PO SCH ×2 (10:11→21:19)
[2021-09-20] MEDS: atenoloL 25 MG TAB PO SCH ×2 (10:11→21:19)
[2021-09-20] MEDS: LOSARTAN 25 MG TAB PO SCH (10:16)
[2021-09-20] MEDS: HEPARIN SODIUM,PORCINE/PF 5,000 UNIT/0.5 ML SYRINGE SQ SCH ×2 (10:17→16:12)
--- NOTE | 2021-09-20 12:11 | US ---
EXAMINATION TYPE: US venous doppler duplex LE RT DATE OF EXAM: 09/20/2021 11:09 AM COMPARISON: NONE CLINICAL HISTORY: 65-year-old female Lower extremity swelling. SIDE PERFORMED: Right TECHNIQUE: The lower extremity deep venous system is examined utilizing real time linear array sonog eric with graded compression, doppler sonography and color-flow sonography. FINDINGS: VESSELS IMAGED: Common Femoral Vein Deep Femoral Vein Greater Saphenous Vein * Femoral Vein Popliteal Vein Small Saphenous Vein * Proximal Calf Veins (* superficial vessels) Right Leg: Negative for DVT IMPRESSION: No evidence for DVT within the right lower extremity imaged from the groin to the upper calf.
--- NOTE | 2021-09-20 13:45 | CONS ---
CONSULTATION Mi is a 65-year-old lady with history of uncontrolled hypertension secondary to noncompliance with medications, obesity, who presented to hospital with initially right arm numbness and subsequently right leg weakness. This started on Thursday and she came into hospital. I have been consulted for a transesophageal echo. The patient had an echocardiogram that showed normal LV systolic function study was not performed because of suboptimal images. Her EKG shows normal sinus rhythm and she did not have any episodes of atrial fibrillation. An MRI of the brain revealed evidence of a cerebrovascular accident. A carotid duplex study was negative. The patient's CVA could be related to severe uncontrolled hypertension, but we certainly have to rule out an intracardiac source of thromboembolic CVA. I talked to the patient about undergoing a MAGGIE. Understanding risks and benefits, she did not want to go through any invasive procedures. I talked to her and explained to her that MAGGIE is a relatively less invasive procedure. If she is agreeable, we may do it tomorrow, as patient already had her breakfast. PAST MEDICAL HISTORY: Significant for hypertension. MEDICATIONS: Medications at home included Tenormin, Claritin, aspirin, Ventolin and Xanax. ALLERGIES: There are MULTIPLE DRUG ALLERGIES. They are charted and I noted them. FAMILY HISTORY: Negative for premature coronary artery disease. SOCIAL HISTORY: Negative for smoking, EtOH abuse or drug abuse. REVIEW OF SYSTEMS: HEENT is unremarkable. CARDIAC: As described above. RESPIRATORY: Negative. GI: Negative. GENITOURINARY: Negative. ALLERGY/IMMUNOLOGY: Negative. SKIN: Negative. MUSCULOSKELETAL: Significant for arthritis. PSYCHOSOCIAL: Negative. : Negative. DERMATOLOGY: Negative. CONSTITUTIONAL: Negative. ONCOLOGICAL: Negative. GAS CHARGER: Significant for CVA. Negative. PHYSICAL EXAMINATION: Comfortable at rest. Vital signs are stable. There jugular venous distention. Carotid upstroke is normal. There is no bruit. Chest exam reveals good air entry bilaterally. Heart exam reveals first and second heart sounds. No gallop. No murmur. Abdomen is soft, nontender. Examination of extremities did not reveal any edema. Peripheral pulses are felt. She has right-sided hemiparesis. LABS: Labs show a hemoglobin of 13. Platelet count is 293. Potassium is 4.1. Creatinine is 0.6. TSH is normal at 2.1. Coronavirus is negative. EKG shows sinus rhythm. Rhythm strips so far have not documented atrial fibrillation. ASSESSMENT: 1. Cerebrovascular accident with right hemiparesis, probably secondary to severe uncontrolled hypertension. 2. Hypertension. PLAN: I will perform a MAGGIE to rule out intracardiac thrombus and a PFO if and when patient is agreeable. SHLOMO / LUCIO: [id number] /
[2021-09-20] MEDS: LORATADINE 10 MG TAB PO SCH (21:19)
[2021-09-20] MEDS: ATORVASTATIN 80 MG TAB PO SCH (21:20)
[2021-09-21] MEDS: HEPARIN SODIUM,PORCINE/PF 5,000 UNIT/0.5 ML SYRINGE SQ SCH ×3 (00:25→16:36)
[2021-09-21 05:18] LABS: Basophils # (A) 0.1 k/uL (0-0.2); Basophils % (A) 1 %; Eosinophils # (A) 0.6 k/uL (0-0.7); Eosinophils % (A) 8 %; HCT 38.8 % (34.0-46.0); HGB 12.3 gm/dL (11.4-16.0); Lymphocytes # (A) 1.7 k/uL (1.0-4.8); Lymphocytes % (A) 23 %; MCH 26.1 pg (25.0-35.0); MCHC 31.7 g/dL (31.0-37.0); MCV 82.4 fL (80.0-100.0); Mean Platelet Volume 7.8; Monocytes # (A) 0.4 k/uL (0-1.0); Monocytes % (A) 6 %; Neutrophils # (A) 4.4 k/uL (1.3-7.7); Neutrophils % (A) 60 %; Platelet Count 298 k/uL (150-450); RBC 4.72 m/uL (3.80-5.40); RDW 13.4 % (11.5-15.5); WBC 7.3 k/uL (3.8-10.6)
[2021-09-21 05:43] LABS: ALT 20 U/L (4-34); AST 26 U/L (14-36); African American GFR (CKD) >90 (>60 ml/min/1.73 sqM); Albumin 4.1 g/dL (3.5-5.0); Alkaline Phosphatase 67 U/L (38-126); Anion Gap 9 mmol/L; Blood Urea Nitrogen 11 mg/dL (7-17); Carbon Dioxide 26 mmol/L (22-30); Chloride 103 mmol/L (98-107); Glucose 97 mg/dL (74-99); Non-African American GFR(CKD) >90 (>60 ml/min/1.73 sqM); Potassium 4.2 mmol/L (3.5-5.1); Sodium 138 mmol/L (137-145); Total Bilirubin 0.5 mg/dL (0.2-1.3)
[2021-09-21] MEDS: ASPIRIN 81 MG PO SCH (06:59)
[2021-09-21] MEDS: atenoloL 25 MG TAB PO SCH ×2 (08:54→20:41)
[2021-09-21] MEDS: TICAGRELOR 90 MG TAB PO SCH ×2 (08:54→20:41)
--- NOTE | 2021-09-21 10:58 | P.PN ---
Subjective Progress Note Date: 09/21/21 Ward Hale, is a 65-year-old female who presented to [facility] emergency room with a chief complaint of headache and right sided weakness, patient stated that for the last few days she had nasal congestion cough and headache, she thought that she had a sinus infection, this morning she woke up, she had a headache, she tried to go to the bathroom and noticed that she had significant weakness in her right upper extremity and right lower extremity, patient came to emergency room, she was evaluated by Dr. Valdovinos, blood pressure was significantly elevated and she received IV labetalol, by that time her blood pressure was better controlled, her symptoms improved, Dr. Valdovinos consulted with interventional neurology, at that point risk of TPA was higher than the benefit, she did not receive TPA she received a loading dose of Brillinta 180 mg and was admitted to telemetry floor neurology consultation was requested, echocardiogram and carotid Doppler were ordered. She was evaluated in the emergency room vital examination on presentation revealed a blood pressure of 210/107 temperature 98.1 pulse 83 respiration 22 pulse ox 96% on room air Laboratory data revealed a white blood count of 11.0 hemoglobin 12.8 platelet count 275 sodium 139 potassium 4.0 chloride 104 CO2 23 BUN 12 creatinine 0.56 Testing in the emergency room revealed computed tomography scan done in the emergency room without contrast revealed no acute intracranial hemorrhage or gross acute cortical infarct, there was evidence of bilateral cerebral white matter hypodensities likely representing chronic microvascular ischemic changes, there was also evidence of mucosal thickening in bilateral maxillary sinuses and ethmoid air cells and opacification of the right inferior mastoid air cell. Chest x-ray revealed cardiomegaly otherwise no acute abnormality CT angiogram of the head and neck was supple optimal however there was no evidence of arterial stenosis or occlusion or dissection or aneurysm. Patient was admitted to medical floor for further evaluation and treatment On 09/17/2021 patient was seen and examined on the telemetry floor she is alert and oriented 3 in no apparent distress reporting some improvement in the right upper extremity in the right lower extremity weakness otherwise she denies any complaints at this time, blood pressure remains elevated, at this time will not increase medications per neurology recommendation of permissive hypertension, will continue to monitor closely, echocardiogram and carotid Doppler were ordered, patient was evaluated by neurology, brain MRI and echocardiogram are pending, will follow closely On 09/18/2021 patient alert and oriented 3. Patient reports improvement with symptoms to right side of body. EEG and carotid Doppler has been ordered per neurology services. Discharge planning is in place to inpatient rehab. Patient reports improvement with sinus symptoms. Patient remains on IV Rocephin. Patient remains on Brilinta and asprin. At this time patient denies chest pain or shortness of breath. Patient denies nausea vomiting or diarrhea. Patient denies any urinary burning or frequency. Current vitals temp 98.2, heart rate 68, respiratory rate 18, blood pressure 133/80 with a pulse ox of 95% on room air. On 09/19/2021 patient was seen and examined on the telemetry floor, she is alert and oriented 3 in no apparent distress, blood pressure was staying elevated, patient has multiple medication ALLERGIES, I tried to small dose of losartan 25 mg this morning, however patient had a reaction, with feeling warm and numb and very tired, losartan was discontinued. Echocardiogram was not of good quality, patient is refusing MAGGIE, at this time she was counseled in length, will place a consult for cardiology for possible MAGGIE and for reevaluation of blood pressure medications. Patient is reporting some improvement in the right upper extremity and the right lower extremity weakness. On 09/20/2021 patient is alert and oriented 3. Patient complaining of right lower extremity swelling will order venous Doppler to rule out DVT. Cardiology services have been consulted possible plans for MAGGIE. Patient reports improvemen t with right-sided movement. Patient denies chest pain or shortness of breath. Patient denies nausea vomiting or diarrhea. Patient denies any urinary burning or frequency On 09/21/2021 patient was seen and examined on the medical floor she is alert and oriented 3 in no apparent distress, she reports improvement in right upper extremity and right lower extremity weakness, there is no fever or chills no headache or dizziness no chest pain no shortness of breath no cough no nausea or vomiting no abdominal pain no diarrhea and no urinary symptoms, vital exam reveals a temperature of 98.2 pulse 68 respirations 16 blood pressure 135/86 pulse ox 95% on room air, lab results are within normal limits, patient is maintained on atenolol for blood pressure control, she has multiple medication ALLERGIES, and was not able to tolerate losartan during this admission, cardiology are following for further evaluation. Possible transfer to rehab on Thursday. Objective - Vital Signs Vital signs: Vital Signs Temp 98.0 F 09/21/21 08:00 Pulse 70 09/21/21 08:00 Resp 16 09/21/21 08:47 BP 146/89 09/21/21 08:00 Pulse Ox 96 09/21/21 08:00 FiO2 Intake & Output 09/20/21 09/21/21 09/21/21 18:59 06:59 18:59 Intake Total 854 240 Balance 854 240 Intake: Oral 854 240 Other: Voiding Method Toilet Toilet Toilet Bedside Commode Bedside Commode Bedside Commode # Voids 1 - Exam In general patient is alert and oriented x 3 in no distress HEENT head normocephalic and atraumatic Neck is supple no JVD no goiter no lymphadenopathy no carotid bruit Chest examination is clear to auscultation no crackles no wheezing Cardiac exam reveals regular heart sounds S1 and S2 no gallops no murmurs Abdomen is soft nontender no organomegaly with normal bowel sounds Extremity exam reveals no edema no cyanosis or clubbing Neurological examination reveals cranial nerves II-12 are intact , there is weakness involving the right upper extremity and the right lower extremity at 4 out of 5 as compared to the left, there is also sensory deficit to the touch stimuli on the right upper extremity and the right lower extremity as compared to the left, reflexes are 2+ symmetrical - Labs CBC & Chem 7: 09/21/21 04:45 09/21/21 04:45 Assessment and Plan Plan: Acute stroke, with right sided weakness and sensory deficit Evidence of acute sinusitis patient started on IV Rocephin Underlying history of hypertension, home medications atenolol was resumed, will monitor blood pressure closely, patient had hypertensive emergency on presentation Evidence of previous small vessel ischemic disease Cardiomegaly on chest x-ray and echocardiogram pending Underlying history of morbid obesity Underlying history of anxiety disorder At this time home medications reviewed and reordered Patient is admitted to telemetry floor Echocardiogram and carotid Doppler were ordered Patient started on aspirin and Brillinta in the emergency room Patient started on IV Rocephin Neurology following Will consult physical therapy and occupational therapy will follow closely
[2021-09-21] MEDS: ATORVASTATIN 80 MG TAB PO SCH (20:41)
[2021-09-21] MEDS: LORATADINE 10 MG TAB PO SCH (20:41)
[2021-09-22] MEDS: HEPARIN SODIUM,PORCINE/PF 5,000 UNIT/0.5 ML SYRINGE SQ SCH ×3 (00:06→17:08)
[2021-09-22] MEDS: ASPIRIN 81 MG PO SCH (06:32)
[2021-09-22] MEDS: TICAGRELOR 90 MG TAB PO SCH ×2 (08:38→20:13)
[2021-09-22] MEDS: atenoloL 25 MG TAB PO SCH ×2 (08:38→20:13)
--- NOTE | 2021-09-22 09:54 | P.PN ---
Subjective Progress Note Date: 09/20/21 09/20/2021: Patient was seen for a follow-up. Family members were not present today. Patient is sitting in the recliner operatively. Patient appears motivated to get therapy. Denies any new symptoms, except for tiredness. Patient states that she had reaction to losartan and her blood pressure actually went up. Patient is waiting transfer to rehab pending insurance authorization. 09/19/2021: Patient was sitting in the wheelchair, ready to go for chest x-ray. Patient's family members were also present. Patient states she is feeling better. Denies any new neurological symptoms. Patient's telemetry monitoring showing sinus rhythm in the 50s to 70s. No other arrhythmia. 09/18/2021: Patient was seen for a follow-up. Patient's and one of the daughter were present. Patient appears to be upset today. She continues to have weakness of the right arm and right leg. Feels the right arm has improved but the right leg still weak, and does not work. 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 09/17/2021: Patient was seen for a follow-up. Patient's 2 daughters were present. Patient's also later arrived. Patient has been having some episodes, in which she would be talking, and then get spacey. Once this spell is over, she wants to get up, wants to get out of bed and wants to take out all the wires. She then calms down and have the same spell all over again. Patient had 4 such spells since yesterday, each lasting for about 10-15 minutes. She feels like she wants to "climb the wall". She was given Ativan for MRI and has calmed down. Patient has no history of alcoholism. Patient also having "full body spasms" which she has never experienced before, and she describes it as "electric pulse throughout her body". These episodes started yesterday afternoon. Last night she could not sleep fell. Patient's sinus infections has much improved with ceftriaxone. Telemetric monitoring showing sinus rhythm. No other arrhythmia. Objective - Vital Signs Vital signs: Vital Signs Temp 98.0 F 09/20/21 12:00 Pulse 67 09/20/21 12:00 Resp 16 09/20/21 12:00 BP 159/90 09/20/21 12:00 Pulse Ox 96 09/20/21 12:00 FiO2 Intake & Output 09/19/21 09/20/21 09/20/21 18:59 06:59 18:59 Intake Total 220 10 354 Balance 220 10 354 Intake: IV 10 Invasive Line 1 10 Oral 220 354 Other: Voiding Method Toilet Bedside Commode # Voids 1 1 - Exam Patient is a late middle aged female, in no acute distress. Patient is alert awake oriented to time place and person. Speech and language functions are normal. Attention, concentration and fund of knowledge is faviola quate. No aphasia or dysarthria. Patient can name and repeat very well. On cranial examination, pupils are equal, round and reacting to light, visual morataya are full on confrontation, with no neglect on double simultaneous stimulation. extraocular muscles are intact with no nystagmus. Face is s ymmetric, tongue protrudes to the midline. Palatal elevation and sensation normal, hearing and shoulder shrug normal, facial sensation normal on either side. Shoulder shrug normal. On muscle strength testing, there is mild right pronator drift, but does not hit the bed. It appeared more steady as compared to yesterday. The strength is (right/left) deltoid 5/5, triceps 5-4+/5, biceps 5/5, security chief museum 4/5, hip flexion 4/5, ankle dorsiflexion 5/5. Her right leg does not drift down for 5 seconds. Sensory to touch equal in the arms and slightly decreased in the right leg as compared to the left. No neglect. Cerebellar function showed v mild ataxia for [id number] testing, and was able to perform it faster than yesterday. Tone and bulk of muscles normal. Gait not checked. On general examination, there is no carotid bruit or murmur, S1-S2 audible. Abdomen is soft nontender. Chest is clear. Peripheral pulses are present. No edema. - Labs CBC & Chem 7: 09/21/21 04:45 09/21/21 04:45 Assessment and Plan Assessment: * Acute ischemic stroke, manifesting with mild right hemiparesis and partial right hemisensory loss (involving arm and leg). Patient also has mild ataxia on the right. * Hypertension * Hyperlipidemia * Previous history of TIA Plan: * Patient continues to have mild right hemiparesis, although the right hemisensory loss has improved. Patient's neurological examination is better today as compared to yesterday exam. * Continue Brilinta 90 mg twice a day and aspirin 81 mg daily. * MRI of the brain revealed restricted diffusion noted in the left pleitez radia ta distribution with corresponding hyperintensity noted on the inversion recovery T2-weighted sequences. Small vessel ischemic disease also noted. Inflammatory changes present within the maxillary sinuses, ethmoid air cells, frontal sinuses. Mild inflammatory changes present within the mastoid air cells. I personally reviewed MRI of the brain, and appears that there is an acute stroke involving the left centrum semiovale, but a subacute ischemic CVA involving the left pleitez radiata as well, adjacent to the occipital horn of left lateral ventricle. I reviewed it with Dr. Newberry, neuroradiologist, who agreed with the findings. Please see addendum of the report. * EEG was performed, which revealed intermittent focal slowing and sharp wave over the left temporal region. This is suggestive of focal cortical neuronal dysfunction, with underlying cortical irritability and tendency for seizures. If patient continues to have episodes of unresponsiveness, then we will start antiepileptic medication. Discussed with patient and her family about the EEG results. No indication for any antiepileptic medication. May consider repeating EEG as an outpatient in 4-6 weeks. * Fasting lipid panel with cholesterol 187, LDL 120, HDL 46 and triglycerides 100. Patient started on Lipitor 80 mg daily. * Hemoglobin A1c normal 5.7. * 2-D echo with bubble study revealed technically poor quality study grossly preserved LV systolic function. Mild mitral and tricuspid regurgitation noted. Interatrial septum appears intact. Bubble study was not performed because of poor quality of images. Discussed with patient about MAGGIE, but patient declined. She does not want any more testing. Patient has been hooked up with an event monitor for 21-30 days to rule out paroxysmal atrial fibrillation. * CTA of head and neck revealed no significant stenosis. * Carotid Doppler revealed no hemodynamically significant stenosis in either ICA. Antegrade flow in both vertebral arteries. * May start bringing blood pressure down slowly to normotensive level. * Continue close neuro checks. * DVT prophylaxis: Heparin 5000 units subcu every 8 hours. * PT OT * Rehab consultation note appreciated. Patient will be a candidate for inpatient rehab. Await insurance authorization. Neurologically clear for discharge. * Recommend patient follow up with neurologist in 1-2 weeks after discharge from rehab facility.
--- NOTE | 2021-09-22 10:01 | P.PN ---
Subjective Progress Note Date: 09/21/21 09/21/2021: This is Tele-neurology follow-up performed today on 09/22/2021. Patient is sitting in her recliner. Offers no complaints. Patient states that she walked with the physical therapy all the way to the hallway. She walked with a walker without assist of therapist. She has noted that she does drag her right leg as she tries to lift it. She feels she is getting better. No new concerns. No headaches. Still feels tired. 09/20/2021: Patient was seen for a follow-up. Family members were not present today. Patient is sitting in the recliner operatively. Patient appears motivated to get therapy. Denies any new symptoms, except for tiredness. Patient states that she had reaction to losartan and her blood pressure actually went up. Patient is waiting transfer to rehab pending insurance authorization. 09/19/2021: Patient was sitting in the wheelchair, ready to go for chest x-ray. Patient's family members were also present. Patient states she is feeling better. Denies any new neurological symptoms. Patient's telemetry monitoring showing sinus rhythm in the 50s to 70s. No other arrhythmia. 09/18/2021: Patient was seen for a follow-up. Patient's and one of the daughter were present. Patient appears to be upset today. She continues to have weakness of the right arm and right leg. Feels the right arm has improved but the right leg still weak, and does not work. 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 09/17/2021: Patient was seen for a follow-up. Patient's 2 daughters were prese nt. Patient's also later arrived. Patient has been having some episodes, in which she would be talking, and then get spacey. Once this spell is over, she wants to get up, wants to get out of bed and wants to take out all the wires. She then calms down and have the same spell all over again. Patient had 4 such spells since yesterday, each lasting for about 10-15 minutes. She feels like she wants to "climb the wall". She was given Ativan for MRI and has calmed down. Patient has no history of alcoholism. Patient also having "full body spasms" which she has never experienced before, and she describes it as "electric pulse throughout her body". These episodes started yesterday a fternoon. Last night she could not sleep fell. Patient's sinus infections has much improved with ceftriaxone. Telemetric monitoring showing sinus rhythm. No other arrhythmia. Objective - Vital Signs Vital signs: Vital Signs Temp 97.8 F 09/22/21 08:34 Pulse 69 09/22/21 08:34 Resp 18 09/22/21 08:34 BP 137/89 09/22/21 08:34 Pulse Ox 97 09/22/21 08:34 FiO2 Intake & Output 09/21/21 09/22/21 09/22/21 18:59 06:59 18:59 Intake Total 360 Balance 360 Intake: Oral 360 Other: Voiding Method Toilet Toilet Toilet Bedside Commode Bedside Commode Bedside Commode # Voids 2 - Exam Patient is a late middle aged female, in no acute distress. Patient is alert awake oriented to time place and person. Speech and language functions are normal. Attention, concentration and fund of knowledge is adequate. No aphasia or dysarthria. Patient can name and repeat very well. Detailed testing deferred. - Labs CBC & Chem 7: 09/21/21 04:45 09/21/21 04:45 Assessment and Plan Assessment: * Acute ischemic stroke, manifesting with mild right hemiparesis and partial right hemisensory loss (involving arm and leg). * Hypertension * Hyperlipidemia * Previous history of TIA Plan: * Patient continues to have mild right hemiparesis, although the right hemisensory loss has improved. Ataxia on the right side is also almost resolved. She is able to perform [id number] testing faster. * Continue Brilinta 90 mg twice a day and aspirin 81 mg daily. * MRI of the brain revealed restricted diffusion noted in the left pleitez radiata distribution with corresponding hyperintensity noted on the inversion recovery T2-weighted sequences. Small vessel ischemic disease also noted. Inflammatory changes present within the maxillary sinuses, ethmoid air cells, frontal sinuses. Mild inflammatory changes present within the mastoid air cells. I personally reviewed MRI of the brain, and appears that there is an acute stroke involving the left centrum semiovale, but a subacute ischemic CVA involving the left pleitez radiata as well, adjacent to the occipital horn of left lateral ventricle. I reviewed it with Dr. Newberry, neuroradiologist, who agreed with the findings. Please see addendum of the report. * EEG was performed, which revealed intermittent focal slowing and sharp wave over the left temporal region. This is suggestive of focal cortical neuronal dysfunction, with underlying cortical irritability and tendency for seizures. If patient continues to have episodes of unresponsiveness, then we will start antiepileptic medication. Discussed with patient and her family about the EEG results. No indication for any antiepileptic medication. May consider repeating EEG as an outpatient in 4-6 weeks. * Fasting lipid panel with cholesterol 187, LDL 120, HDL 46 and triglycerides 100. Patient started on Lipitor 80 mg daily. * Hemoglobin A1c normal 5.7. * 2-D echo with bubble study revealed technically poor quality study grossly preserved LV systolic function. Mild mitral and tricuspid regurgitation noted. Interatrial septum appears intact. Bubble study was not performed because of poor quality of images. Discussed with patient about MAGGIE, but patient declined. She does not want any more testing. Patient has been hooked up with an event monitor for 21-30 days to rule out paroxysmal atrial fibrillation. * CTA of head and neck revealed no significant stenosis. * Carotid Doppler revealed no hemodynamically significant stenosis in either ICA. Antegrade flow in both vertebral arteries. * May start bringing blood pressure down slowly to normotensive level. * Continue close neuro checks. * DVT prophylaxis: Heparin 5000 units subcu every 8 hours. * PT OT * Rehab consultation note appreciated. Patient will be a candidate for inpatient rehab. Await insurance authorization. Neurologically clear for discharge. * Recommend patient follow up with neurologist in 1-2 weeks after discharge from rehab facility. Neurology will sign off. Please reconsult neurology if any concerns.
--- NOTE | 2021-09-22 10:43 | P.PN ---
Subjective Progress Note Date: 09/22/21 Ward Hale, is a 65-year-old female who presented to [facility] emergency room with a chief complaint of headache and right sided weakness, patient stated that for the last few days she had nasal congestion cough and headache, she thought that she had a sinus infection, this morning she woke up, she had a headache, she tried to go to the bathroom and noticed that she had significant weakness in her right upper extremity and right lower extremity, patient came to emergency room, she was evaluated by Dr. Valdovinos, blood pressure was significantly elevated and she received IV labetalol, by that time her blood pressure was better controlled, her symptoms improved, Dr. Valdovinos consulted with interventional neurology, at that point risk of TPA was higher than the benefit, she did not receive TPA she received a loading dose of Brillinta 180 mg and was admitted to telemetry floor neurology consultation was requested, echocardiogram and carotid Doppler were ordered. She was evaluated in the emergency room vital examination on presentation revealed a blood pressure of 210/107 temperature 98.1 pulse 83 respiration 22 pulse ox 96% on room air Laboratory data revealed a white blood count of 11.0 hemoglobin 12.8 platelet count 275 sodium 139 potassium 4.0 chloride 104 CO2 23 BUN 12 creatinine 0.56 Testing in the emergency room revealed computed tomography scan done in the emergency room without contrast revealed no acute intracranial hemorrhage or gross acute cortical infarct, there was evidence of bilateral cerebral white matter hypodensities likely representing chronic microvascular ischemic changes, there was also evidence of mucosal thickening in bilateral maxillary sinuses and ethmoid air cells and opacification of the right inferior mastoid air cell. Chest x-ray revealed cardiomegaly otherwise no acute abnormality CT angiogram of the head and neck was supple optimal however there was no evidence of arterial stenosis or occlusion or dissection or aneurysm. Patient was admitted to medical floor for further evaluation and treatment On 09/17/2021 patient was seen and examined on the telemetry floor she is alert and oriented 3 in no apparent distress reporting some improvement in the right upper extremity in the right lower extremity weakness otherwise she denies any complaints at this time, blood pressure remains elevated, at this time will not increase medications per neurology recommendation of permissive hypertension, will continue to monitor closely, echocardiogram and carotid Doppler were ordered, patient was evaluated by neurology, brain MRI and echocardiogram are pending, will follow closely On 09/18/2021 patient alert and oriented 3. Patient reports improvement with symptoms to right side of body. EEG and carotid Doppler has been ordered per neurology services. Discharge planning is in place to inpatient rehab. Patient reports improvement with sinus symptoms. Patient remains on IV Rocephin. Patient remains on Brilinta and asprin. At this time patient denies chest pain or shortness of breath. Patient denies nausea vomiting or diarrhea. Patient denies any urinary burning or frequency. Current vitals temp 98.2, heart rate 68, respiratory rate 18, blood pressure 133/80 with a pulse ox of 95% on room air. On 09/19/2021 patient was seen and examined on the telemetry floor, she is alert and oriented 3 in no apparent distress, blood pressure was staying elevated, patient has multiple medication ALLERGIES, I tried to small dose of losartan 25 mg this morning, however patient had a reaction, with feeling warm and numb and very tired, losartan was discontinued. Echocardiogram was not of good quality, patient is refusing MAGGIE, at this time she was counseled in length, will place a consult for cardiology for possible MAGGIE and for reevaluation of blood pressure medications. Patient is reporting some improvement in the right upper extremity and the right lower extremity weakness. On 09/20/2021 patient is alert and oriented 3. Patient complaining of right lower extremity swelling will order venous Doppler to rule out DVT. Cardiology services have been consulted possible plans for MAGGIE. Patient reports improvemen t with right-sided movement. Patient denies chest pain or shortness of breath. Patient denies nausea vomiting or diarrhea. Patient denies any urinary burning or frequency On 09/21/2021 patient was seen and examined on the medical floor she is alert and oriented 3 in no apparent distress, she reports improvement in right upper extremity and right lower extremity weakness, there is no fever or chills no headache or dizziness no chest pain no shortness of breath no cough no nausea or vomiting no abdominal pain no diarrhea and no urinary symptoms, vital exam reveals a temperature of 98.2 pulse 68 respirations 16 blood pressure 135/86 pulse ox 95% on room air, lab results are within normal limits, patient is maintained on atenolol for blood pressure control, she has multiple medication ALLERGIES, and was not able to tolerate losartan during this admission, cardiology are following for further evaluation. Possible transfer to rehab on Thursday. On 09/22/2021 patient was seen and examined the medical floor she is alert and oriented 3 in no apparent distress she reports improvement in her right upper extremity and right lower extremity weakness she is able to ambulate with walker and with help of physical therapy, there is no fever or chills no headache or dizziness no chest pain no shortness of breath no cough no nausea or vomiting no abdominal pain no diarrhea and no urinary symptoms, patient was cleared by neurology, plan is for discharge to a rehab unit tomorrow. Objective - Vital Signs Vital signs: Vital Signs Temp 97.8 F 09/22/21 08:34 Pulse 69 09/22/21 08:34 Resp 18 09/22/21 08:34 BP 137/89 09/22/21 08:34 Pulse Ox 97 09/22/21 08:34 FiO2 Intake & Output 09/21/21 09/22/21 09/22/21 18:59 06:59 18:59 Intake Total 360 240 Balance 360 240 Intake: Oral 360 240 Other: Voiding Method Toilet Toilet Toilet Bedside Commode Bedside Commode Bedside Commode # Voids 2 - Exam In general patient is alert and oriented x 3 in no distress HEENT head normocephalic and atraumatic Neck is supple no JVD no goiter no lymphadenopathy no carotid bruit Chest examination is clear to auscultation no crackles no wheezing Cardiac exam reveals regular heart sounds S1 and S2 no gallops no murmurs Abdomen is soft nontender no organomegaly with normal bowel sounds Extremity exam reveals no edema no cyanosis or clubbing Neurological examination reveals cranial nerves II-12 are intact , there is weakness involving the right upper extremity and the right lower extremity at 4 out of 5 as compared to the left, there is also sensory deficit to the touch stimuli on the right upper extremity and the right lower extremity as compared to the left, reflexes are 2+ symmetrical - Labs CBC & Chem 7: 09/21/21 04:45 09/21/21 04:45 Assessment and Plan Plan: Acute stroke, with right sided weakness and sensory deficit Evidence of acute sinusitis patient started on IV Rocephin Underlying history of hypertension, home medications atenolol was resumed, will monitor blood pressure closely, patient had hypertensive emergency on presenta tion Evidence of previous small vessel ischemic disease Cardiomegaly on chest x-ray and echocardiogram pending Underlying history of morbid obesity Underlying history of anxiety disorder At this time home medications reviewed and reordered Patient is admitted to telemetry floor Echocardiogram and carotid Doppler were ordered Patient started on aspirin and Brillinta in the emergency room Patient started on IV Rocephin Neurology following Will consult physical therapy and occupational therapy will follow closely
--- NOTE | 2021-09-22 17:06 | P.PN ---
Progress Note - Text Therapy notes reviewed. PT reports supervision for bed mobility, transfers, gait 220 ft roller walker. OT reports completely independent for feeding, grooming. supervision only for upper/lower dress and bathing, toileting and basic self care transfers. Thus doing well and will not qualify for inpatient rehab.
[2021-09-22] MEDS: LORATADINE 10 MG TAB PO SCH (20:13)
[2021-09-22] MEDS: ATORVASTATIN 80 MG TAB PO SCH (20:13)
[2021-09-23] MEDS: HEPARIN SODIUM,PORCINE/PF 5,000 UNIT/0.5 ML SYRINGE SQ SCH ×4 (01:04→23:33)
[2021-09-23] MEDS: ASPIRIN 81 MG PO SCH (05:54)
[2021-09-23] MEDS: TICAGRELOR 90 MG TAB PO SCH ×2 (08:55→20:19)
[2021-09-23] MEDS: atenoloL 25 MG TAB PO SCH ×2 (08:55→20:19)
[2021-09-23 12:51] VITALS: BMI 37.4
--- NOTE | 2021-09-23 16:56 | P.PN ---
Subjective Progress Note Date: 09/23/21 Ward Hale, is a 65-year-old female who presented to [facility] emergency room with a chief complaint of headache and right sided weakness, patient stated that for the last few days she had nasal congestion cough and headache, she thought that she had a sinus infection, this morning she woke up, she had a headache, she tried to go to the bathroom and noticed that she had significant weakness in her right upper extremity and right lower extremity, patient came to emergency room, she was evaluated by Dr. Valdovinos, blood pressure was significantly elevated and she received IV labetalol, by that time her blood pressure was better controlled, her symptoms improved, Dr. Valdovinos consulted with interventional neurology, at that point risk of TPA was higher than the benefit, she did not receive TPA she received a loading dose of Brillinta 180 mg and was admitted to telemetry floor neurology consultation was requested, echocardiogram and carotid Doppler were ordered. She was evaluated in the emergency room vital examination on presentation revealed a blood pressure of 210/107 temperature 98.1 pulse 83 respiration 22 pulse ox 96% on room air Laboratory data revealed a white blood count of 11.0 hemoglobin 12.8 platelet count 275 sodium 139 potassium 4.0 chloride 104 CO2 23 BUN 12 creatinine 0.56 Testing in the emergency room revealed computed tomography scan done in the emergency room without contrast revealed no acute intracranial hemorrhage or gross acute cortical infarct, there was evidence of bilateral cerebral white matter hypodensities likely representing chronic microvascular ischemic changes, there was also evidence of mucosal thickening in bilateral maxillary sinuses and ethmoid air cells and opacification of the right inferior mastoid air cell. Chest x-ray revealed cardiomegaly otherwise no acute abnormality CT angiogram of the head and neck was supple optimal however there was no evidence of arterial stenosis or occlusion or dissection or aneurysm. Patient was admitted to medical floor for further evaluation and treatment On 09/17/2021 patient was seen and examined on the telemetry floor she is alert and oriented 3 in no apparent distress reporting some improvement in the right upper extremity in the right lower extremity weakness otherwise she denies any complaints at this time, blood pressure remains elevated, at this time will not increase medications per neurology recommendation of permissive hypertension, will continue to monitor closely, echocardiogram and carotid Doppler were ordered, patient was evaluated by neurology, brain MRI and echocardiogram are pending, will follow closely On 09/18/2021 patient alert and oriented 3. Patient reports improvement with symptoms to right side of body. EEG and carotid Doppler has been ordered per neurology services. Discharge planning is in place to inpatient rehab. Patient reports improvement with sinus symptoms. Patient remains on IV Rocephin. Patient remains on Brilinta and asprin. At this time patient denies chest pain or shortness of breath. Patient denies nausea vomiting or diarrhea. Patient denies any urinary burning or frequency. Current vitals temp 98.2, heart rate 68, respiratory rate 18, blood pressure 133/80 with a pulse ox of 95% on room air. On 09/19/2021 patient was seen and examined on the telemetry floor, she is alert and oriented 3 in no apparent distress, blood pressure was staying elevated, patient has multiple medication ALLERGIES, I tried to small dose of losartan 25 mg this morning, however patient had a reaction, with feeling warm and numb and very tired, losartan was discontinued. Echocardiogram was not of good quality, patient is refusing MAGGIE, at this time she was counseled in length, will place a consult for cardiology for possible MAGGIE and for reevaluation of blood pressure medications. Patient is reporting some improvement in the right upper extremity and the right lower extremity weakness. On 09/20/2021 patient is alert and oriented 3. Patient complaining of right lower extremity swelling will order venous Doppler to rule out DVT. Cardiology services have been consulted possible plans for MAGGIE. Patient reports improvemen t with right-sided movement. Patient denies chest pain or shortness of breath. Patient denies nausea vomiting or diarrhea. Patient denies any urinary burning or frequency On 09/21/2021 patient was seen and examined on the medical floor she is alert and oriented 3 in no apparent distress, she reports improvement in right upper extremity and right lower extremity weakness, there is no fever or chills no headache or dizziness no chest pain no shortness of breath no cough no nausea or vomiting no abdominal pain no diarrhea and no urinary symptoms, vital exam reveals a temperature of 98.2 pulse 68 respirations 16 blood pressure 135/86 pulse ox 95% on room air, lab results are within normal limits, patient is maintained on atenolol for blood pressure control, she has multiple medication ALLERGIES, and was not able to tolerate losartan during this admission, cardiology are following for further evaluation. Possible transfer to rehab on Thursday. On 09/22/2021 patient was seen and examined the medical floor she is alert and oriented 3 in no apparent distress she reports improvement in her right upper extremity and right lower extremity weakness she is able to ambulate with walker and with help of physical therapy, there is no fever or chills no headache or dizziness no chest pain no shortness of breath no cough no nausea or vomiting no abdominal pain no diarrhea and no urinary symptoms, patient was cleared by neurology, plan is for discharge to a rehab unit tomorrow.. On 09/23/2021 patient was seen and examined on the telemetry floor she is alert and oriented 3 in no apparent distress there is no fever or chills no headache or dizziness no chest pain no shortness of breath no cough no nausea or vomiting no abdominal pain no diarrhea and no urinary symptoms, patient reports improvement in her right upper extremity and right lower extremity weakness, she was reevaluated today by Dr. Jauregui, and due to her improvement she does not qualify at this time to go to inpatient rehab, telehealth case manager and outreach and education social worker are working on alternative placement at a [facility], will follow up in a.m.. Objective - Vital Signs Vital signs: Vital Signs Temp 98.1 F 09/23/21 16:25 Pulse 70 09/23/21 16:25 Resp 18 09/23/21 16:25 BP 149/80 09/23/21 16:25 Pulse Ox 97 09/23/21 16:25 FiO2 Intake & Output 09/22/21 09/23/21 09/23/21 18:59 06:59 18:59 Intake Total 720 240 Balance 720 240 Weight 89.811 kg Intake: Oral 720 240 Other: Voiding Method Toilet Toilet Toilet Bedside Commode Bedside Commode Bedside Commode # Voids 2 1 1 - Exam In general patient is alert and oriented x 3 in no distress HEENT head normocephalic and atraumatic Neck is supple no JVD no goiter no lymphadenopathy no carotid bruit Chest examination is clear to auscultation no crackles no wheezing Cardiac exam reveals regular heart sounds S1 and S2 no gallops no murmurs Abdomen is soft nontender no organomegaly with normal bowel sounds Extremity exam reveals no edema no cyanosis or clubbing Neurological examination reveals cranial nerves II-12 are intact , there is weakness involving the right upper extremity and the right lower extremity at 4 out of 5 as compared to the left, there is also sensory deficit to the touch stimuli on the right upper extremity and the right lower extremity as compared to the left, reflexes are 2+ symmetrical - Labs CBC & Chem 7: 09/21/21 04:45 09/21/21 04:45 Assessment and Plan Plan: Acute stroke, with right sided weakness and sensory deficit Evidence of acute sinusitis patient started on IV Rocephin Underlying history of hypertension, home medications atenolol was resumed, will monitor blood pressure closely, patient had hypertensive emergency on presentation Evidence of previous small vessel ischemic disease Cardiomegaly on chest x-ray and echocardiogram pending Underlying history of morbid obesity Underlying history of anxiety disorder At this time home medications reviewed and reordered Patient is admitted to telemetry floor Echocardiogram and carotid Doppler were ordered Patient started on aspirin and Brillinta in the emergency room Patient started on IV Rocephin Neurology following Will consult physical therapy and occupational therapy will follow closely
[2021-09-23] MEDS: ATORVASTATIN 80 MG TAB PO SCH (20:19)
[2021-09-23] MEDS: LORATADINE 10 MG TAB PO SCH (20:19)
[2021-09-23] MEDS: ALPRAZolam 0.25 MG TAB PO PRN (23:28)
[2021-09-24] MEDS: ASPIRIN 81 MG PO SCH (06:39)
[2021-09-24] MEDS: TICAGRELOR 90 MG TAB PO SCH (08:37)
[2021-09-24] MEDS: HEPARIN SODIUM,PORCINE/PF 5,000 UNIT/0.5 ML SYRINGE SQ SCH (08:37)
[2021-09-24] MEDS: atenoloL 25 MG TAB PO SCH (08:37)
[2021-09-24 12:29] VITALS: BP 127/82; PULSE 61; RESP 16; TEMP 98.2
--- NOTE | 2021-09-27 10:19 | P.DS ---
Providers Date of admission: 09/16/21 10:30 Expected date of discharge: 09/24/21 Attending physician: Rylee Rosario Consults: 09/16/21 10:29 Consult Physician Routine Consulting Provider: Myrna Sepulveda Consult Reason/Comments: CVA Do you want consulting provider notified?: Yes 09/17/21 13:17 Consult Physician Routine Consulting Provider: Parker Scales Consult Reason/Comments: eval for ipr Do you want consulting provider notified?: Yes Primary care physician: Chastity Cordova Hospital Course: Diagnosis on discharge: Acute stroke, with right sided weakness and sensory deficit Evidence of acute sinusitis patient started on IV Rocephin Underlying history of hypertension, home medications atenolol was resumed, will monitor blood pressure closely, patient had hypertensive emergency on presentation Evidence of previous small vessel ischemic disease Cardiomegaly on chest x-ray and echocardiogram pending Underlying history of morbid obesity Underlying history of anxiety disorder Hospital course: Ward Hale, is a 65-year-old female who presented to [facility] emergency room with a chief complaint of headache and right sided weakness, patient stated that for the last few days she had nasal congestion cough and headache, she thought that she had a sinus infection, this morning she woke up, she had a headache, she tried to go to the bathroom and noticed that she had significant weakness in her right upper extremity and right lower extremity, patient came to emergency room, she was evaluated by Dr. Valdovinos, blood pressure was significantly elevated and she received IV labetalol, by that time her blood pressure was better controlled, her symptoms improved, Dr. Valdovinos consulted with interventional neurology, at that point risk of TPA was higher than the benefit, she did not receive TPA she received a loading dose of Brillinta 180 mg and was admitted to telemetry floor neurology consultation was requested, echocardiogram and carotid Doppler were ordered. She was evaluated in the emergency room vital examination on presentation revealed a blood pressure of 210/107 temperature 98.1 pulse 83 respiration 22 pulse ox 96% on room air Laboratory data revealed a white blood count of 11.0 hemoglobin 12.8 platelet count 275 sodium 139 potassium 4.0 chloride 104 CO2 23 BUN 12 creatinine 0.56 Testing in the emergency room revealed computed tomography scan done in the emergency room without contrast revealed no acute intracranial hemorrhage or gross acute cortical infarct, there was evidence of bilateral cerebral white matter hypodensities likely representing chronic microvascular ischemic changes, there was also evidence of mucosal thickening in bilateral maxillary sinuses and ethmoid air cells and opacification of the right inferior mastoid air cell. Chest x-ray revealed cardiomegaly otherwise no acute abnormality CT angiogram of the head and neck was supple optimal however there was no evidence of arterial stenosis or occlusion or dissection or aneurysm. Patient was admitted to medical floor for further evaluation and treatment On 09/17/2021 patient was seen and examined on the telemetry floor she is alert and oriented 3 in no apparent distress reporting some improvement in the right upper extremity in the right lower extremity weakness otherwise she denies any complaints at this time, blood pressure remains elevated, at this time will not increase medications per neurology recommendation of permissive hypertension, will continue to monitor closely, echocardiogram and carotid Doppler were ordered, patient was evaluated by neurology, brain MRI and echocardiogram are pending, will follow closely On 09/18/2021 patient alert and oriented 3. Patient reports improvement with symptoms to right side of body. EEG and carotid Doppler has been ordered per neurology services. Discharge planning is in place to inpatient rehab. Patient reports improvement with sinus symptoms. Patient remains on IV Rocephin. Patient remains on Brilinta and asprin. At this time patient denies chest pain or shortness of breath. Patient denies nausea vomiting or diarrhea. Patient denies any urinary burning or frequency. Current vitals temp 98.2, heart rate 68, respiratory rate 18, blood pressure 133/80 with a pulse ox of 95% on room air. On 09/19/2021 patient was seen and examined on the telemetry floor, she is alert and oriented 3 in no apparent distress, blood pressure was staying elevated, patient has multiple medication ALLERGIES, I tried to small dose of losartan 25 mg this morning, however patient had a reaction, with feeling warm and numb and very tired, losartan was discontinued. Echocardiogram was not of good quality, patient is refusing MAGGIE, at this time she was counseled in length, will place a consult for cardiology for possible MAGGIE and for reevaluation of blood pressure medications. Patient is reporting some improvement in the right upper extremity and the right lower extremity weakness. On 09/20/2021 patient is alert and oriented 3. Patient complaining of right lower extremity swelling will order venous Doppler to rule out DVT. Cardiology services have been consulted possible plans for MAGGIE. Patient reports improvement with right-sided movement. Patient denies chest pain or shortness of breath. Patient denies nausea vomiting or diarrhea. Patient denies any urinary burning or frequency On 09/21/2021 patient was seen and examined on the medical floor she is alert and oriented 3 in no apparent distress, she reports improvement in right upper extremity and right lower extremity weakness, there is no fever or chills no headache or dizziness no chest pain no shortness of breath no cough no nausea or vomiting no abdominal pain no diarrhea and no urinary symptoms, vital exam reveals a temperature of 98.2 pulse 68 respirations 16 blood pressure 135/86 pulse ox 95% on room air, lab results are within normal limits, patient is maintained on atenolol for blood pressure control, she has multiple medication ALLERGIES, and was not able to tolerate losartan during this admission, cardiology are following for further evaluation. Possible transfer to rehab on Thursday. On 09/22/2021 patient was seen and examined the medical floor she is alert and oriented 3 in no apparent distress she reports improvement in her right upper extremity and right lower extremity weakness she is able to ambulate with walker and with help of physical therapy, there is no fever or chills no headache or dizziness no chest pain no shortness of breath no cough no nausea or vomiting no abdominal pain no diarrhea and no urinary symptoms, patient was cleared by neurology, plan is for discharge to a rehab unit tomorrow.. On 09/23/2021 patient was seen and examined on the telemetry floor she is alert and oriented 3 in no apparent distress there is no fever or chills no headache or dizziness no chest pain no shortness of breath no cough no nausea or vomiting no abdominal pain no diarrhea and no urinary symptoms, patient reports improvement in her right upper extremity and right lower extremity weakness, she was reevaluated today by Dr. Jauregui, and due to her improvement she does not qualify at this time to go to inpatient rehab, case sealer and home health care social worker are working on alternative placement at a [facility], will follow up in a.m.. On 09/24/2021 patient discharged home on Brilinta and Lipitor. Patient is alert and oriented 3. This time patient denies chest pain or shortness breath. Patient denies nausea vomiting or diarrhea. Patient denies any urinary burning or frequency Plan - Discharge Summary Discharge Rx Participant: No New Discharge Prescriptions: New Ticagrelor [Brilinta] 90 mg PO BID tab Atorvastatin [Lipitor] 80 mg PO HS tab Continue Loratadine [Claritin] 10 mg PO DAILY Aspirin 81 mg PO DAILY@0700 ALPRAZolam [Xanax] 0.25 mg PO HS PRN PRN Reason: Anxiety atenoloL [Tenormin] 25 mg PO BID Calcium Carbonate [Tums] 500 mg PO TID PRN PRN Reason: HEART BURN Albuterol Nebulized [Ventolin Nebulized] 2.5 mg INHALATION RT-Q6H PRN PRN Reason: Shortness Of Breath Discontinued Aspirin EC [Ecotrin] 325 mg PO DAILY PRN PRN Reason: Chest Pain Discharge Medication List Aspirin 81 mg PO DAILY@0700 04/09/18 [History] Loratadine [Claritin] 10 mg PO DAILY 04/09/18 [History] ALPRAZolam [Xanax] 0.25 mg PO HS PRN 09/16/21 [History] Albuterol Nebulized [Ventolin Nebulized] 2.5 mg INHALATION RT-Q6H PRN 09/16/21 [History] Calcium Carbonate [Tums] 500 mg PO TID PRN 09/16/21 [History] atenoloL [Tenormin] 25 mg PO BID 09/16/21 [History] Atorvastatin [Lipitor] 80 mg PO HS tab 09/24/21 [Rx] Ticagrelor [Brilinta] 90 mg PO BID tab 09/24/21 [Rx] Follow up Appointment(s)/Referral(s): Chastity Cordova MD [Primary Care Provider] - 1-2 days Jas Sheth MD [REFERRING] - 1 Week Sweetie Mcdonald MD [Medical Doctor] - 1 Week (You will need to follow up with a neurologist. I have attacted the ones in [place] for you to choose from. The telephone numbers are also attacted. Please review and call office to schedule appoitment. ) Donald Jain DO [STAFF PHYSICIAN] - 1 Week Patient Instructions/Handouts: Ischemic Stroke (IP) Activity/Diet/Wound Care/Special Instructions: limit activity until follow up with primary care doctor. Use assistive device and take breaks as needed. You have been prescribed a heart healthy diet- low sodium, low fat. See handout for Mediterranean diet Please choose neurologist to follow up with. Please follow up with news library director and discuss recommendations for MAGGIE procedure. Discharge Disposition: HOME SELF-CARE
--- NOTE | 2021-09-27 11:30 | P.CEMON ---
30 day monitor worn for only 4 days Sinus mechanism with normal heart rates in the 60s to 80s beats per minute 2 very brief runs of nonsustained atrial tachycardia, irregular
== END 2021-09-24 15:58 | disposition home or self-care (01) | DRG 65 ==
LOC: EC 08:24 → 3SCARD 10:30 → UNDODISIN 09-18 16:26
PROVIDERS: ADMIT Internal Medicine; ATTEND Internal Medicine
DX: I63.9 Cerebral infarction, unspecified (principal); G81.91 Hemiplegia, unspecified affecting right dominant side; R29.705 NIHSS score 5; J01.90 Acute sinusitis, unspecified; I34.1 Nonrheumatic mitral (valve) prolapse; I10 Essential (primary) hypertension; H81.10 Benign paroxysmal vertigo, unspecified ear; F41.9 Anxiety disorder, unspecified; E66.01 Morbid (severe) obesity due to excess calories; Z68.37 Body mass index [BMI] 37.0-37.9, adult; E78.5 Hyperlipidemia, unspecified; Z79.82 Long term (current) use of aspirin; Z79.899 Other long term (current) drug therapy; Z82.49 Family history of ischemic heart disease and other diseases of the circulatory system; Z83.3 Family history of diabetes mellitus; Z86.73 Personal history of transient ischemic attack (TIA), and cerebral infarction without residual deficits; Z90.710 Acquired absence of both cervix and uterus; Z91.14 Patient's other noncompliance with medication regimen; Z90.89 Acquired absence of other organs; Z28.21 Immunization not carried out because of patient refusal; Z90.49 Acquired absence of other specified parts of digestive tract; Z83.79 Family history of other diseases of the digestive system; Z88.5 Allergy status to narcotic agent; Z88.0 Allergy status to penicillin; Z88.2 Allergy status to sulfonamides; Z98.890 Other specified postprocedural states
CPT/HCPCS: 36415; 70450; 70496; 70498; 70551; 71046; 80048; 80053; 80061; 83036; 84443; 84484; 85025; 85027; 85610; 85730; 87635; 93005; 93270; 93306; 93880; 94640; 95816; 96365; 96375; 99291

== ENCOUNTER → 2022-03-11 | Outpatient (CLI) | payer MEDICARE, OTHER ==
[2022-03-11 18:01] LABS: Chol/HDL Ratio 3.24 Ratio; Creatine Kinase 60 U/L (26-186); LDL Cholesterol,Calculated 74.5 mg/dL (0.0-131.0)
== END | disposition home or self-care (01) ==
LOC: LABWHC1 09:23
PROVIDERS: ATTEND Psychiatry & Neurology Neurology
DX: Z86.73 Personal history of transient ischemic attack (TIA), and cerebral infarction without residual deficits (principal)
CPT/HCPCS: 36415; 80061; 82550

== ENCOUNTER → 2022-12-24 | Outpatient (CLI) | payer MEDICARE ==
--- NOTE | 2022-12-25 10:37 | MM ---
Reason for Exam: Screening (asymptomatic). Last mammogram was performed 3 year(s) and 3 month(s) ago. Patient History: Menarche at age 14. First Full-Term at age 22. Hysterectomy at age 34. Postmenopausal. Risk Values: Donna 5 year model risk: 1.5%. NCI Lifetime model risk: 5.4%. Prior Study Comparison: 11/11/2013 Screening Mammogram, [facility]. 05/20/2017 Bilateral Screening Mammogram, [facility]. 09/19/2019 Bilateral Screening Mammogram, [facility]. Tissue Density: The breast tissue is heterogeneously dense. This may lower the sensitivity of mammography. Findings: Analyzed By CAD. There is no suspicious group of microcalcifications or new suspicious mass in either breast. Punctate calcifications. Nodular density upper outer quadrant right breast. A chronic nodularity in the subareolar portion left breast stable. Overall Assessment: Benign, BI-RAD 2 Management: Screening Mammogram of both breasts in 1 year. . Patient should continue monthly self-breast exams. A clinical breast exam by your physician is recommended on an annual basis. This exam should not preclude additional follow-up of suspicious palpable abnormalities. Note on Donna scores and lifetime risk: 1. A Donna score greater than 3% is considered moderate risk. If this is the case, consider specialist referral to assess eligibility for a risk reducing agent. 2. If overall lifetime risk for the development of breast cancer is 20% or higher, the patient may qualify for future screening with alternating mammogram and breast MRI. Electronically signed and approved by: Andrzej Rodriguez M.D. Radiologis
== END | disposition home or self-care (01) ==
LOC: RADMAMWWP 13:29
PROVIDERS: ATTEND Family Medicine
DX: Z12.31 Encounter for screening mammogram for malignant neoplasm of breast (principal); Z78.0 Asymptomatic menopausal state
CPT/HCPCS: 77067